=== PATIENT | male | born 1940 | race Caucasian/White ===

== ENCOUNTER 2016-11-22 11:44 | Outpatient (CLI) | payer MEDICARE, OTHER ==
[2016-11-22 13:58] LABS: #Lymphocytes 1.7 thou/uL (1.20-3.40); #Monocytes 0.5 thou/uL (0.11-0.59); #Neutrophils 3.2 thou/uL (1.40-6.50); %Basophils 0.7 % (0.0-1.0); %Eosinophils 0.8 % (0.0-10.0); %Lymphocytes 31.4 % (21.0-51.0); %Monocytes 8.9 % (0.0-10.0); %Neutrophils 58.1 % (42.0-75.0); Hemoglobin 14.1 g/dL (14.0-18.0); Mean Corpuscular HGB CONC 31.7 g/dL (32.0-36.0); Mean Corpuscular Hemoglobin 30.1 pg (27.0-31.0); Mean Corpuscular Volume 94.8 fl (80.0-94.0); Mean Platelet Volume 9.8 fL (7.4-10.4); Platelet Count 221 thou/uL (130-400); RBC Distribution Width 12.7 % (11.5-14.5); White Blood Cell (WBC) Count 5.4 thou/uL (4.8-10.8)
[2016-11-22 14:09] LABS: ALT (SGPT) 10 U/L (0-55); AST (SGOT) 15 U/L (5-34); Alkaline Phosphatase 88 U/L (40-150); Anion Gap 14 mmol/L (10-20); BUN (Urea Nitrogen) 20 mg/dL (8.4-25.7); Bilirubin, Direct 0.2 mg/dL (0.1-0.3); Bilirubin, Total 0.3 mg/dL (0.2-1.2); Calc. Creatinine Clearance 0 mL/min (70-130); Carbon Dioxide 27 mmol/L (23-31); Chloride 102 mmol/L (98-107); Cholesterol 151 mg/dL (< 200 Desired); Estimated GFR-MDRD 65; Glucose 110 mg/dL (83-110); HDL Cholesterol 51 mg/dL (>60 Neg Risk); LDL Cholesterol, Calculated 78 mg/dL; Potassium 4.3 mmol/L (3.5-5.1); Protein, Total 6.8 g/dL (5.8-8.1); Sodium 139 mmol/L (136-145); Triglycerides 109 mg/dL (Less than 150)
== END 2016-11-22 11:45 | disposition home or self-care (01) ==
LOC: NAVSJIPCSP 11:44
PROVIDERS: ATTEND Family Medicine
DX: D64.9 Anemia, unspecified (principal); E11.9 Type 2 diabetes mellitus without complications; I10 Essential (primary) hypertension; Z79.899 Other long term (current) drug therapy
CPT/HCPCS: 36415; 80048; 80061; 80076; 83036; 84443; 85025

== ENCOUNTER 2017-09-27 17:44 | Emergency (ER) | payer MEDICARE, BC ==
[2017-09-27 18:27] LABS: Bilirubin Negative (Negative); Blood, Urine Negative (Negative); Clarity Clear (Clear); Glucose, Urine (Dipstick) Negative (Negative); Leukocyte Negative (Negative); Nitrite Negative (Negative); Protein, Urine (Dipstick) 30 mg/dL (Neg-Trace); Urobilinogen 0.2 mg/dL (0.2-1.0); pH, Urine 6.5 (5.0-9.0)
[2017-09-27 18:38] LABS: Bacteria/HPF None Seen HPF (None Seen); RBC/HPF 0-3 HPF (0-3); Squamous Epithelial 0-3 HPF (0-3); WBC/HPF 0-3 HPF (0-3)
[2017-09-27] MEDS ORDERED: Oseltamivir 75 MG CAP ONE (18:48)
[2017-09-27] MEDS ORDERED: predniSONE 20 MG TAB ONE (18:51)
--- NOTE | 2017-09-27 19:11 | RAD ---
CHEST ONE VIEW 09/27/17 HISTORY: Cough. COMPARISON: 02/09/16, 01/27/17. FINDINGS: Portable semiupright chest demonstrates normal cardiac silhouette. There is atherosclerosis of the ao rta. Pulmonary vessels are normal. Right lung and costophrenic angle are clear. There are pleural and parenchymal changes in the left lung base. No pneumothorax. Cervical fusion hardware is noted. IMPRESSION: Pleural and parenchymal change in the left lung base. Possibility of pneumonia is raised. Continued s urveillance to ensure resolution is recommended. POS: JANNA
== END 2017-09-27 18:53 | disposition home or self-care (01) ==
LOC: NAV ERS 17:44
DX: J44.1 Chronic obstructive pulmonary disease with (acute) exacerbation (principal); J10.1 Influenza due to other identified influenza virus with other respiratory manifestations; E11.9 Type 2 diabetes mellitus without complications; Z87.891 Personal history of nicotine dependence; Z79.899 Other long term (current) drug therapy
CPT/HCPCS: 71045; 81003; 81015; 87804; 94640; J7506; J7620

== ENCOUNTER 2018-06-27 17:27 | Emergency (ER) | payer MEDICARE, BC ==
[2018-06-27] MEDS ORDERED: predniSONE 20 MG TAB ONE (18:07)
--- NOTE | 2018-06-27 19:21 | RAD ---
CHEST 1 VIEW: Date: 06/27/18 HISTORY: Cough. Sputum production. COMPARISON: Radiograph dated 09/27/17. FINDINGS: Lungs are clear. No pneumothorax or effusion. Remote right-sided rib fractures. No confluent air space consolidation, pneumothorax, or effusion. IMPRESSION: No acute intrathoracic abnormality. POS: [facility]
== END 2018-06-27 18:55 | disposition home or self-care (01) ==
LOC: NAV ERS 17:27
DX: J20.9 Acute bronchitis, unspecified (principal); I10 Essential (primary) hypertension; J44.9 Chronic obstructive pulmonary disease, unspecified; E11.40 Type 2 diabetes mellitus with diabetic neuropathy, unspecified; F32.9 Major depressive disorder, single episode, unspecified; E78.5 Hyperlipidemia, unspecified; Z79.84 Long term (current) use of oral hypoglycemic drugs; Z87.01 Personal history of pneumonia (recurrent); Z87.891 Personal history of nicotine dependence; Z79.899 Other long term (current) drug therapy
CPT/HCPCS: 71045; 87804; 93005; 94640; J7506; J7620

== ENCOUNTER 2019-07-15 16:59 | Emergency (ER) | payer MEDICARE, BC ==
[2019-07-15 17:44] LABS: #Basophils 0.1 thou/uL (0.0-0.2); #Lymphocytes 1.6 thou/uL (1.20-3.40); #Monocytes 0.7 thou/uL (0.11-0.59); #Neutrophils 4.4 thou/uL (1.40-6.50); %Eosinophils 0.4 % (0.0-10.0); %Lymphocytes 23.7 % (21.0-51.0); %Monocytes 9.9 % (0.0-10.0); Mean Corpuscular HGB CONC 31.4 g/dL (32.0-36.0); Mean Corpuscular Hemoglobin 28.4 pg (27.0-31.0); Mean Corpuscular Volume 90.2 fL (78.0-98.0); Mean Platelet Volume 10.9 fL (7.4-10.4); Platelet Count 197 thou/uL (130-400); RBC Distribution Width 12.8 % (11.5-14.5); Red Blood Cell (RBC) Count 4.92 mill/uL (4.70-6.10); White Blood Cell (WBC) Count 6.8 thou/uL (4.8-10.8)
[2019-07-15] MEDS ORDERED: Albuterol Sulfate 2.5 mg/0.5 ml Neb ONE ×2 (17:45)
[2019-07-15] MEDS ORDERED: Sodium Chloride For Inhalation 0.9% 3 ML NEB ONE (17:46)
--- NOTE | 2019-07-15 17:47 | RAD ---
TWO VIEWS OF THE CHEST: 07/15/19 COMPARISON: 06/27/18. HISTORY: Congestion, productive cough. FINDINGS: Incompletely imaged cervical spine hardware is present. There is increased linear interstitial densit y and pulmonary hyperinflation suggesting COPD in the proper clinical setting, stable. Multiple old l ateral right sided rib fractures are noted. There is atherosclerotic calcifications of the aortic arc h. No focal consolidation or alveolar edema. IMPRESSION: Chronic findings as detailed above. No focal consolidation or alveolar edema. POS: [facility]ERT[facility]
[2019-07-15 18:06] LABS: ALT (SGPT) 12 U/L (8-55); AST (SGOT) 12 U/L (5-34); Albumin 4.1 g/dL (3.4-4.8); Alkaline Phosphatase 124 U/L (40-110); Anion Gap 15 mmol/L (10-20); BUN (Urea Nitrogen) 18 mg/dL (8.4-25.7); Bilirubin, Total 0.4 mg/dL (0.2-1.2); Calc. Creatinine Clearance 0 mL/min (70-130); Calcium 9.5 mg/dL (7.8-10.44); Carbon Dioxide 27 mmol/L (23-31); Chloride 100 mmol/L (98-107); Estimated GFR-MDRD 61; Globulin 2.8 g/dL (2.4-3.5); Glucose 191 mg/dL (83-110); Potassium 4.2 mmol/L (3.5-5.1); Protein, Total 6.9 g/dL (5.8-8.1); Sodium 138 mmol/L (136-145)
[2019-07-15] MEDS ORDERED: Sodium Chloride 0.9% 0 ML ONE (18:36)
[2019-07-15] MEDS ORDERED: Sodium Chloride 0.9% 1,000 ML ONE (18:37)
[2019-07-15] MEDS ORDERED: Sodium Chloride 0.9% 100 ML ONE (18:38)
[2019-07-15] MEDS ORDERED: Azithromycin 250 MG TAB ONE (18:38)
[2019-07-15] MEDS ORDERED: cefTRIAXone\\ROCEPHIN 1 GM VIAL ONE (18:38)
== END 2019-07-15 19:37 | disposition home or self-care (01) ==
LOC: NAV ERS 16:59
DX: J44.0 Chronic obstructive pulmonary disease with (acute) lower respiratory infection (principal); J18.9 Pneumonia, unspecified organism; E11.65 Type 2 diabetes mellitus with hyperglycemia; E11.40 Type 2 diabetes mellitus with diabetic neuropathy, unspecified; I10 Essential (primary) hypertension; J44.9 Chronic obstructive pulmonary disease, unspecified; F32.9 Major depressive disorder, single episode, unspecified; Z87.891 Personal history of nicotine dependence; Z86.73 Personal history of transient ischemic attack (TIA), and cerebral infarction without residual deficits; Z79.899 Other long term (current) drug therapy
CPT/HCPCS: 71046; 80053; 83880; 84484; 85025; 87804; 93005; 94640; 94760; J0696; J3490; J7050; J7611; J7620

== ENCOUNTER 2020-04-12 23:59 | Emergency (ER) | payer MEDICARE, BC | END 2020-04-13 00:15 | disposition left against medical advice (07) | LOC: NAV ERS 23:59 | DX: Z53.21 Procedure and treatment not carried out due to patient leaving prior to being seen by health care provider (principal) | CPT/HCPCS: 36416 ==

== ENCOUNTER 2020-07-21 15:38 | Outpatient (CLI) | payer MEDICARE, BC ==
--- NOTE | 2020-07-22 07:28 | RAD ---
Chest 2 views HISTORY: Cough. COVID positive. COMPARISON: 07/15/2020. FINDINGS: Cardiac silhouette and pulmonary vasculature are unremarkable. Mediastinum is midline with aortic calcification and postoperative changes of the cervical spine. Lungs remain hyperinflated with flattening of each hemidiaphragm. Right middle lobe infiltrate demons trated on recent CT is not well visualized on the current study. No lobar consolidation, pneumothorax, or pleural fluid. Old healed right lateral upper rib fractures. IMPRESSION : Right middle lobe infiltrate not visible, possible partial resolution. No new abnormalities are demonstrated. Atherosclerosis.
== END 2020-07-21 15:39 | disposition home or self-care (01) ==
LOC: NAV RAD 15:38
PROVIDERS: ATTEND Family Medicine
DX: R05 Cough (principal); I70.90 Unspecified atherosclerosis; R91.8 Other nonspecific abnormal finding of lung field; Z86.19 Personal history of other infectious and parasitic diseases
CPT/HCPCS: 71046

== ENCOUNTER 2020-07-28 15:29 | Inpatient (IN) | payer MEDICARE, BC ==
[2020-07-28] MEDS ORDERED: Dextrose 50% Abboject 50 ML SYRINGE SLOW IVP PRN (16:28)
--- NOTE | 2020-07-28 17:53 | HP ---
PRINCIPAL DIAGNOSIS: Pneumonia and deconditioning, for therapy. BRIEF HISTORY: This is a pleasant 80-year-old male, who was recently in the hospital for COVID-19 infection and recovered after getting dexamethasone and remdesivir and discharged home. He apparently was feeling weak and developed fevers and cough and so presented back to the emergency room. He did have an elevated troponin consistent with non-STEMI. CT angio was negative for pulmonary embolus. It also showed ground-glass opacities consistent with pneumonia. His repeat COVID-19 test on the was negative. He was started on IV Levaquin. He was also on breathing treatments as well as medications for acute coronary syndrome. He has slowly improved and he has been weaned off his high-flow oxygen and is currently on oral Levaquin. Cardiology feels that non-STEMI was likely related to demand issue. Echocardiogram showed ejection fraction of 65% and recommendation is beta blockers with ARBs and statin as well as anti-platelet therapy. He was felt to be a candidate for rehabilitation and transferred here. The patient is doing well and denies any concerns. Denies any chest pain or shortness of breath. Denies any fever or chills. No family at bedside. PAST MEDICAL HISTORY: 1. Recent COVID-19 infection. 2. Coronary artery disease with possible recent non-STEMI. 3. Diabetes mellitus type 2. 4. Dyslipidemia. 5. Hypertension. 6. Peripheral neuropathy, likely due to diabetes. 7. Gastroesophageal reflux disease. 8. Possible history of COPD. 9. Peripheral vascular disease. 10. Multiple TIAs. 11. Iron deficiency anemia. PAST SURGICAL HISTORY: 1. Peripheral vascular stent placement. 2. L5-S1 laminectomy. 3. Cervical spine surgery. FAMILY HISTORY: Positive for congestive heart failure in his mother, father at age 56 of colon cancer, and a sister had coronary artery disease. ALLERGIES: TO AMOXICILLIN AND DIAZEPAM. MEDICATIONS: He has been transferred here on the following medications. 1. Aspirin 81 mg daily. 2. Calcium carbonate 500 mg daily. 3. Vitamin D3, 2000 international units daily. 4. Dexamethasone 6 mg daily, I am not sure why he is still on it. I will review the discharge summary and adjust it. 5. Nexium 20 mg b.i.d. 6. Lasix 40 mg daily. 7. Gabapentin 800 mg b.i.d. 8. . 9. Isosorbide 60 mg daily. 10. Levaquin 750 mg daily. 11. Lisinopril 2.5 daily. 12. Metformin 500 mg in the morning and 1000 at bedtime. 13. Toprol-XL 50 mg daily. 14. Pioglitazone 45 mg daily. 15. Lyrica 150 mg b.i.d. 16. Simvastatin 40 mg daily. 17. Januvia 100 mg daily. 18. Brilinta 90 mg b.i.d. 19. Zinc 220 mg daily. REVIEW OF SYSTEMS: GENERAL: The patient denies any fever, fatigue, or weight change. CARDIOVASCULAR SYSTEM: Denies any chest pain, shortness of breath, palpitations, PND, orthopnea, or pedal edema. RESPIRATORY SYSTEM: Denies any chronic cough, expectoration, or pleuritic-type chest pain. Much improved shortness of breath. GASTROINTESTINAL SYSTEM: Denies any nausea, vomiting, diarrhea, constipation, hematemesis, melena, or hematochezia. GENITOURINARY SYSTEM: Denies any frequency, urgency, dysuria, or hematuria. CENTRAL NERVOUS SYSTEM: Denies any focal numbness, weakness, or fainting spells. EXTREMITIES: Denies any joint pains. SKIN: Denies any rash. ENT: Denies any changes with speech, vision, hearing, or swallowing. PHYSICAL EXAMINATION: GENERAL: A pleasant 80-year-old male, who is up in his chair and denies any complaints. He responds appropriately to questions. He is alert, awake, and oriented x3. VITAL SIGNS: He is afebrile. Heart rate 69, respirations 18, oxygen saturation 95% on room air, blood pressure 121/61. HEENT: Normocephalic and atraumatic. Pupils are equally reactive to light and accommodation. NECK: No JVD, thyromegaly, cervical adenopathy, or throat exudates. No carotid bruits. CARDIOVASCULAR SYSTEM: S1 and S2 plus. RESPIRATORY SYSTEM: Normal vesicular breath sounds. ABDOMEN: Soft, nontender, bowel sounds heard in all quadrants. EXTREMITIES: Without cyanosis or clubbing. CENTRAL NERVOUS SYSTEM: Awake and responsive. Generalized weakness. Otherwise, nonfocal. Cranial nerves 2 through 12 are intact. IMPRESSION: 1. Pneumonia, likely community-acquired. 2. Coronary artery disease with possible recent jhs-[id number] myocardial infarction. 3. Hypertension. 4. Dyslipidemia. 5. Anemia, likely due to iron deficiency. 6. Gastroesophageal reflux disease. 7. Possible peripheral neuropathy due to diabetes. 8. Diabetes mellitus type 2 with circulatory complications. 9. Peripheral vascular disease. PLAN: 1. Continue discharge medications from previous hospitalization. 2. 1800-calorie heart healthy ADA diet. 3. Accu-Cheks with sliding scale coverage. 4. DVT prophylaxis with PlexiPulses. 5. Decubitus precautions. 6. Stress ulcer prophylaxis. 7. Monitor respiratory status. 8. Recheck CBC and CMP in the morning. 9. PT and OT eval and treat. 10. Mild sliding scale with Accu-Cheks before meals and at bedtime. 11. Discussed with the patient and staff in detail. All questions answered. Job ID: [id number]
[2020-07-28] MEDS: metFORMIN 500 MG TAB PO SCH (18:10)
[2020-07-28] MEDS: HumaLOG 300 UNITS/3 ML VIAL SC PRN (20:31)
[2020-07-28] MEDS: Gabapentin 400 MG CAP PO SCH (20:34)
[2020-07-28] MEDS: Simvastatin 40 MG TAB PO SCH (20:34)
[2020-07-28] MEDS: TICAGRELOR 90 MG TABLET PO SCH (20:34)
[2020-07-28] MEDS: Pregabalin 75 MG CAP PO SCH (20:35)
[2020-07-29] MEDS: HumaLOG 300 UNITS/3 ML VIAL SC PRN ×3 (05:38→16:58)
[2020-07-29 05:54] LABS: Band 17 % (5-11); Hemoglobin 8.1 g/dL (14.0-18.0); Hypochromia SLIGHT = 6-15 cells (100X) (0-5/hpf); Lymphocytes 13 % (21-51); MDiff Complete? YES; Mean Corpuscular HGB CONC 30.2 g/dL (32.0-36.0); Mean Corpuscular Hemoglobin 21.5 pg (27.0-31.0); Mean Corpuscular Volume 71.3 fL (78.0-98.0); Mean Platelet Volume 8.6 fL (7.4-10.4); Metamyelocyte 2 % (0-0); Microcytosis SLIGHT = 6-15 cells (100X) (0-5/hpf); Monocytes 7 % (0-10); Neutrophil 61 % (42-75); Ovalocytes SLIGHT = 2-5 cells (100X) (0-1/hpf); Platelet Count 384 thou/uL (130-400); Platelet Morphology Comment Appears Adequate; RBC Distribution Width 15.6 % (11.5-14.5); Red Blood Cell (RBC) Count 3.77 mill/uL (4.70-6.10)
[2020-07-29 05:58] LABS: Anion Gap 15 mmol/L (10-20); BUN (Urea Nitrogen) 21 mg/dL (8.4-25.7); Calc. Creatinine Clearance 81 mL/min (70-130); Calcium 8.5 mg/dL (7.8-10.44); Carbon Dioxide 29 mmol/L (23-31); Chloride 97 mmol/L (98-107); Glucose 199 mg/dL (83-110); Potassium 3.1 mmol/L (3.5-5.1); Sodium 138 mmol/L (136-145)
[2020-07-29] MEDS: Multivitamin W/ Minerals 1 TAB PO SCH (07:59)
[2020-07-29] MEDS: Cholecalciferol 1,000 UNITS (25 MCG) TAB PO SCH (08:00)
[2020-07-29] MEDS: Aspirin 81 mg Enteric Coated Tablet PO SCH (08:00)
[2020-07-29] MEDS: TICAGRELOR 90 MG TABLET PO SCH ×2 (08:00→21:49)
[2020-07-29] MEDS: Alogliptin 25 MG TAB PO SCH (08:00)
[2020-07-29] MEDS: metFORMIN 500 MG TAB PO SCH ×2 (08:00→16:32)
[2020-07-29] MEDS: Ferrous Sulfate 325 MG TAB PO SCH (08:00)
[2020-07-29] MEDS: Pregabalin 75 MG CAP PO SCH ×2 (08:01→21:46)
[2020-07-29] MEDS: Pioglitazone HCl 15 MG TAB PO SCH (08:02)
[2020-07-29] MEDS: Gabapentin 400 MG CAP PO SCH ×2 (08:02→21:47)
[2020-07-29] MEDS: Zinc Sulfate 220 MG CAP PO SCH (08:03)
[2020-07-29] MEDS: Furosemide 40 MG TAB PO SCH (08:03)
[2020-07-29] MEDS: Calcium Carbonate 500 MG TAB PO SCH (08:03)
[2020-07-29] MEDS ORDERED: Dexamethasone 4 MG TAB PO SCH (09:00)
[2020-07-29] MEDS ORDERED: Lisinopril 5 MG TAB PO SCH ×2 (09:00→15:00)
[2020-07-29] MEDS ORDERED: Potassium Chloride 20 MEQ TAB PO SCH (15:00)
--- NOTE | 2020-07-29 15:30 | PRG ---
DATE OF SERVICE: 07/29/2020 SUBJECTIVE: Mr. Morse has been moved to room 151. He apparently was feeling great this morning, but then has been feeling puny. He is also complaining of jitteriness and nausea as well as abdominal irritation. His is in the room and states that he normally responds well to Nexium, she is going to bring it from home. Plan is to stop his Decadron as I do not see any reason for him to be on oral steroids. We will also change the timing on his medications, especially the lisinopril, the metoprolol, and isosorbide. He apparently was not on any of these medicines until this recent admission to the hospital and most probably started for his atrial fibrillation and non-STEMI. I will also add Florastor and give parameters for these medications. I did confirm with the that he is apparently on both gabapentin and Lyrica for his peripheral neuropathy. OBJECTIVE: VITAL SIGNS: He is afebrile, heart rate 68, respirations 22, oxygen saturation 99% on 1 L nasal cannula, blood pressure 113/58. CARDIOVASCULAR SYSTEM: S1 and S2 plus. RESPIRATORY SYSTEM: Normal vesicular breath sounds. ABDOMEN: Soft, obese, nontender. Bowel sounds heard in all quadrants. EXTREMITIES: Without cyanosis or clubbing. Trace edema. CENTRAL NERVOUS SYSTEM: Generalized weakness. Peripheral neuropathy. Otherwise, nonfocal. LABORATORY VALUES: Show a white count of 10, hemoglobin and hematocrit are 8.1 and 26.9. Sodium 138, potassium 3.1, BUN and creatinine are 21 and 0.95. Blood sugars are 376, 164, 199, and 240. IMPRESSION: 1. Pneumoniae, likely community-acquired. 2. Diabetes mellitus, type 2. 3. Atrial fibrillation. 4. Coronary artery disease with possible recent ebt-PK-jxeovmozk myocardial infarction. 5. Diabetic peripheral neuropathy. 6. Hypertension. 7. Gastroesophageal reflux disease. 8. Peripheral vascular disease. 9. Multiple transient ischemic attacks. 10. Iron deficiency anemia. 11. Hypokalemia. PLAN: 1. Continue current medications, but add potassium 40 mEq p.o. x1. 2. Reduce metoprolol to 25 mg and change to nighttime. 3. Reduce isosorbide to 30 mg daily and give it in the morning. 4. Lisinopril 2.5, but add parameters to all three medicines to hold if systolic blood pressure is less than 120. 5. Discontinue Decadron. 6. Add Florastor. 7. Recheck laboratory values in the morning. 8. Titrate oxygen as tolerated. 9. DVT prophylaxis with PlexiPulses. 10. Decubitus precautions. 11. Stress ulcer prophylaxis. is going to bring Nexium from home, until then he will be on pantoprazole. 12. Advised her that he is on Brilinta instead of Plavix. 13. Continue therapy. 14. Discussed with the patient, spouse, and nursing in detail. All questions answered. Job ID: [id number]
[2020-07-29] MEDS: ESOMEPRAZOLE 20 MG PO SCH (21:45)
[2020-07-29] MEDS: Simvastatin 40 MG TAB PO SCH (21:49)
[2020-07-30 06:14] LABS: Anion Gap 14 mmol/L (10-20); BUN (Urea Nitrogen) 35 mg/dL (8.4-25.7); Calc. Creatinine Clearance 64 mL/min (70-130); Calcium 8.7 mg/dL (7.8-10.44); Carbon Dioxide 27 mmol/L (23-31); Chloride 98 mmol/L (98-107); Glucose 140 mg/dL (83-110); Potassium 3.2 mmol/L (3.5-5.1); Sodium 136 mmol/L (136-145)
[2020-07-30] MEDS: Gabapentin 400 MG CAP PO SCH ×2 (08:45→21:15)
[2020-07-30] MEDS: Zinc Sulfate 220 MG CAP PO SCH (08:46)
[2020-07-30] MEDS: Calcium Carbonate 500 MG TAB PO SCH (08:46)
[2020-07-30] MEDS: Multivitamin W/ Minerals 1 TAB PO SCH (08:46)
[2020-07-30] MEDS: Saccharomyces boulardii 250 MG CAP PO SCH (08:46)
[2020-07-30] MEDS: Pregabalin 75 MG CAP PO SCH ×2 (08:47→21:16)
[2020-07-30] MEDS: Furosemide 40 MG TAB PO SCH (08:47)
[2020-07-30] MEDS: TICAGRELOR 90 MG TABLET PO SCH ×2 (08:47→21:18)
[2020-07-30] MEDS: Aspirin 81 mg Enteric Coated Tablet PO SCH (08:47)
[2020-07-30] MEDS: Pioglitazone HCl 15 MG TAB PO SCH (08:47)
[2020-07-30] MEDS: Cholecalciferol 1,000 UNITS (25 MCG) TAB PO SCH (08:47)
[2020-07-30] MEDS: ESOMEPRAZOLE 20 MG PO SCH ×2 (08:48→21:15)
[2020-07-30] MEDS: Alogliptin 25 MG TAB PO SCH (08:48)
[2020-07-30] MEDS: metFORMIN 500 MG TAB PO SCH ×2 (08:48→16:56)
[2020-07-30] MEDS: Ferrous Sulfate 325 MG TAB PO SCH (08:48)
[2020-07-30] MEDS: Lisinopril 5 MG TAB PO SCH (08:49)
[2020-07-30] MEDS ORDERED: Potassium Chloride 20 MEQ TAB PO SCH (15:15)
--- NOTE | 2020-07-30 16:33 | PRG ---
DATE OF SERVICE: 07/30/2020 SUBJECTIVE: Mr. Morse is feeling much better. He denies any complaints. He apparently walked all the way to the nurse's station from his room with his walker. OBJECTIVE: VITAL SIGNS: He is afebrile. Heart rate is 70, respirations 18, oxygen saturation 97% on 1 L, and blood pressure was 106/57. CARDIOVASCULAR: S1 and S2 plus. RESPIRATORY: Normal vesicular breath sounds. ABDOMEN: Soft and nontender. Bowel sounds heard in all quadrants. EXTREMITIES: Without cyanosis or clubbing. CENTRAL NERVOUS SYSTEM: Improving deconditioning. LABORATORY VALUES: His sodium is 136, potassium is still low at 3.2, BUN and creatinine are 35 and 1.2. Blood sugars are much improved at 189, 140, 138, and 139. IMPRESSION: 1. Resolving pneumonitis. 2. Recent COVID-19 infection. 3. Possible recent tbh-EC-acmgiqsje myocardial infarction. 4. Coronary artery disease. 5. Diabetes mellitus type 2. 6. Atrial fibrillation. 7. Peripheral neuropathy. 8. Hypertension. 9. Gastroesophageal reflux disease. 10. History of multiple transient ischemic attack. 11. Persistent hypokalemia. PLAN: 1. Continue current medication, but reduce Lasix to 20 mg once daily. 2. Replace potassium again. 3. Continue therapy. 4. Titrate oxygen. 5. DVT prophylaxis with PlexiPulses. 6. Decubitus precaution. 7. Routine laboratory values. Job ID: [id number]
[2020-07-30] MEDS: Simvastatin 40 MG TAB PO SCH (21:17)
[2020-07-31 04:46] VITALS: BMI 27.3
[2020-07-31] MEDS: HumaLOG 300 UNITS/3 ML VIAL SC PRN ×2 (05:27→12:21)
[2020-07-31] MEDS: Gabapentin 400 MG CAP PO SCH ×2 (09:18→21:16)
[2020-07-31] MEDS: Multivitamin W/ Minerals 1 TAB PO SCH (09:18)
[2020-07-31] MEDS: Alogliptin 25 MG TAB PO SCH (09:18)
[2020-07-31] MEDS: Pioglitazone HCl 15 MG TAB PO SCH (09:18)
[2020-07-31] MEDS: Potassium Chloride 20 MEQ TAB PO SCH (09:19)
[2020-07-31] MEDS: Calcium Carbonate 500 MG TAB PO SCH (09:19)
[2020-07-31] MEDS: Pregabalin 75 MG CAP PO SCH ×2 (09:19→21:17)
[2020-07-31] MEDS: Cholecalciferol 1,000 UNITS (25 MCG) TAB PO SCH (09:19)
[2020-07-31] MEDS: Ferrous Sulfate 325 MG TAB PO SCH (09:19)
[2020-07-31] MEDS: Zinc Sulfate 220 MG CAP PO SCH (09:19)
[2020-07-31] MEDS: TICAGRELOR 90 MG TABLET PO SCH ×2 (09:20→21:19)
[2020-07-31] MEDS: Aspirin 81 mg Enteric Coated Tablet PO SCH (09:20)
[2020-07-31] MEDS: Saccharomyces boulardii 250 MG CAP PO SCH (09:20)
[2020-07-31] MEDS: Furosemide 20 MG TAB PO SCH (09:20)
[2020-07-31] MEDS: Lisinopril 5 MG TAB PO SCH (09:20)
[2020-07-31] MEDS: metFORMIN 500 MG TAB PO SCH ×2 (09:20→17:35)
[2020-07-31] MEDS: ESOMEPRAZOLE 20 MG PO SCH ×2 (09:24→21:13)
[2020-07-31] MEDS ORDERED: Loperamide HCl 2 MG CAP PO PRN ×4 (11:43→12:00)
--- NOTE | 2020-07-31 14:51 | PRG ---
DATE OF SERVICE: 07/31/2020 SUBJECTIVE: Mr. Morse apparently had a couple of episodes of loose stools last night and then a couple this morning. It is not smelly per Nursing, probably related to the Levaquin, but he apparently also got a milkshake last night, which usually causes some issues per . Plan is to start him on Imodium and if there are any changes, we will also get a stool for C diff. OBJECTIVE: VITAL SIGNS: He is afebrile, heart rate 98, respirations 18, oxygen saturation 97% on room air, blood pressure 97/49. CARDIOVASCULAR: S1-S2 plus. RESPIRATORY: Normal vesicular breath sounds. ABDOMEN: Soft, obese, nontender. Bowel sounds heard in all quadrants. EXTREMITIES: Without cyanosis or clubbing. CENTRAL NERVOUS SYSTEM: Generalized weakness, otherwise nonfocal. IMPRESSION: 1. Possible pneumonitis. 2. Recent COVID-19 infection. 3. Coronary artery disease. 4. Diabetes mellitus type 2. 5. Atrial fibrillation. 6. Hypertension. 7. Gastroesophageal reflux disease. 8. Hypokalemia. 9. Deconditioning. 10. Resolving acute hypoxemic respiratory failure. PLAN: 1. Continue current medications. 2. 1800 calorie heart healthy ADA diet. 3. Accu-Cheks with sliding scale coverage. 4. Monitor respiratory status and breathing treatments as needed. 5. DVT prophylaxis with PlexiPulses. 6. Decubitus precautions. 7. Stress ulcer prophylaxis. 8. Routine laboratory values. 9. Therapy tomorrow. 10. Recheck CBC and BMP tomorrow. Job ID: [id number]
[2020-07-31] MEDS: Simvastatin 40 MG TAB PO SCH (21:15)
[2020-08-01 05:35] LABS: #Basophils 0.1 thou/uL (0.0-0.2); #Monocytes 0.7 thou/uL (0.11-0.59); #Neutrophils 6.6 thou/uL (1.40-6.50); %Basophils 0.9 % (0.0-1.0); %Eosinophils 0.2 % (0.0-10.0); %Lymphocytes 12.2 % (21.0-51.0); %Neutrophils 78.7 % (42.0-75.0); Hemoglobin 8.2 g/dL (14.0-18.0); Mean Corpuscular HGB CONC 30.1 g/dL (32.0-36.0); Mean Corpuscular Hemoglobin 21.3 pg (27.0-31.0); Mean Corpuscular Volume 70.6 fL (78.0-98.0); Mean Platelet Volume 7.8 fL (7.4-10.4); Platelet Count 353 thou/uL (130-400); RBC Distribution Width 15.6 % (11.5-14.5); Red Blood Cell (RBC) Count 3.85 mill/uL (4.70-6.10); White Blood Cell (WBC) Count 8.4 thou/uL (4.8-10.8)
[2020-08-01 05:36] LABS: Anisocytosis SLIGHT = 6-15 cells (100X) (0-5/hpf); Hypochromia SLIGHT = 6-15 cells (100X) (0-5/hpf); MDiff Complete? YES; Microcytosis MODERATE=15-30 cells (100X) (0-5/hpf); Ovalocytes SLIGHT = 2-5 cells (100X) (0-1/hpf); Platelet Morphology Comment Appears Adequate
[2020-08-01 05:39] LABS: Anion Gap 16 mmol/L (10-20); BUN (Urea Nitrogen) 25 mg/dL (8.4-25.7); Calc. Creatinine Clearance 66 mL/min (70-130); Calcium 8.6 mg/dL (7.8-10.44); Carbon Dioxide 28 mmol/L (23-31); Chloride 95 mmol/L (98-107); Glucose 161 mg/dL (83-110); Potassium 3.6 mmol/L (3.5-5.1); Sodium 135 mmol/L (136-145)
[2020-08-01] MEDS: HumaLOG 300 UNITS/3 ML VIAL SC PRN ×2 (06:02→11:55)
[2020-08-01] MEDS: Potassium Chloride 20 MEQ TAB PO SCH (08:33)
[2020-08-01] MEDS: Pioglitazone HCl 15 MG TAB PO SCH (08:33)
[2020-08-01] MEDS: Pregabalin 75 MG CAP PO SCH ×2 (08:34→20:11)
[2020-08-01] MEDS: TICAGRELOR 90 MG TABLET PO SCH ×2 (08:34→20:12)
[2020-08-01] MEDS: Saccharomyces boulardii 250 MG CAP PO SCH (08:34)
[2020-08-01] MEDS: Zinc Sulfate 220 MG CAP PO SCH (08:35)
[2020-08-01] MEDS: Cholecalciferol 1,000 UNITS (25 MCG) TAB PO SCH (08:35)
[2020-08-01] MEDS: Calcium Carbonate 500 MG TAB PO SCH (08:35)
[2020-08-01] MEDS: Aspirin 81 mg Enteric Coated Tablet PO SCH (08:35)
[2020-08-01] MEDS: Alogliptin 25 MG TAB PO SCH (08:35)
[2020-08-01] MEDS: Gabapentin 400 MG CAP PO SCH ×2 (08:36→20:11)
[2020-08-01] MEDS: Furosemide 20 MG TAB PO SCH (08:36)
[2020-08-01] MEDS: Ferrous Sulfate 325 MG TAB PO SCH (08:36)
[2020-08-01] MEDS: metFORMIN 500 MG TAB PO SCH ×2 (08:38→17:28)
[2020-08-01] MEDS: Multivitamin W/ Minerals 1 TAB PO SCH (08:38)
[2020-08-01] MEDS: Lisinopril 5 MG TAB PO SCH (08:38)
[2020-08-01] MEDS: ESOMEPRAZOLE 20 MG PO SCH ×2 (08:44→20:12)
--- NOTE | 2020-08-01 13:09 | PRG ---
DATE OF SERVICE: 08/01/2020 SUBJECTIVE: Mr. Morse is doing well. His diarrhea has pretty much resolved. He is off his oxygen. He apparently did pretty well with therapy. Denies any questions or concerns. His spouse is not in the room. OBJECTIVE: VITAL SIGNS: He is afebrile, heart rate 82, respirations 18, oxygen saturation 93% on room air, blood pressure is 96/55. CARDIOVASCULAR: S1-S2 plus. RESPIRATORY: Normal vesicular breath sounds. ABDOMEN: Soft and nontender. Bowel sounds heard in all quadrants. EXTREMITIES: Without cyanosis or clubbing. Trace edema. CENTRAL NERVOUS SYSTEM: Improving deconditioning. LABORATORY VALUES: White count is 8.4, H and H are 8.2 and 27.2. Sodium 135, potassium 3.6, BUN and creatinine are 25 and 1.08. Blood sugar is much improved at 145, 150, and 157. IMPRESSION: 1. Possible community-acquired pneumonia. 2. Recent COVID-19 infection. 3. Resolved acute hypoxemic respiratory failure. 4. Coronary artery disease. 5. Diabetes mellitus type 2. 6. Atrial fibrillation. 7. Hypertension. 8. Resolved hypokalemia. 9. Improving deconditioning. PLAN: 1. Continue current medications. 2. 1800 calorie heart healthy ADA diet. 3. Accu-Cheks with sliding scale coverage. 4. Continue to monitor respiratory status. 5. Physical therapy. 6. DVT prophylaxis with PlexiPulses. 7. Decubitus precautions. Job ID: [id number]
[2020-08-01] MEDS: Simvastatin 40 MG TAB PO SCH (20:11)
[2020-08-02] MEDS: HumaLOG 300 UNITS/3 ML VIAL SC PRN ×3 (05:37→20:52)
[2020-08-02] MEDS: Potassium Chloride 20 MEQ TAB PO SCH (08:24)
[2020-08-02] MEDS: Cholecalciferol 1,000 UNITS (25 MCG) TAB PO SCH (08:25)
[2020-08-02] MEDS: Calcium Carbonate 500 MG TAB PO SCH (08:25)
[2020-08-02] MEDS: Alogliptin 25 MG TAB PO SCH (08:25)
[2020-08-02] MEDS: Aspirin 81 mg Enteric Coated Tablet PO SCH (08:25)
[2020-08-02] MEDS: Ferrous Sulfate 325 MG TAB PO SCH (08:25)
[2020-08-02] MEDS: Gabapentin 400 MG CAP PO SCH ×2 (08:26→20:49)
[2020-08-02] MEDS: Furosemide 20 MG TAB PO SCH (08:26)
[2020-08-02] MEDS: metFORMIN 500 MG TAB PO SCH ×2 (08:27→17:40)
[2020-08-02] MEDS: Lisinopril 5 MG TAB PO SCH (08:27)
[2020-08-02] MEDS: Pioglitazone HCl 15 MG TAB PO SCH (08:28)
[2020-08-02] MEDS: Multivitamin W/ Minerals 1 TAB PO SCH (08:28)
[2020-08-02] MEDS: ESOMEPRAZOLE 20 MG PO SCH ×2 (08:28→20:50)
[2020-08-02] MEDS: Pregabalin 75 MG CAP PO SCH ×2 (08:28→20:48)
[2020-08-02] MEDS: Zinc Sulfate 220 MG CAP PO SCH (08:29)
[2020-08-02] MEDS: Saccharomyces boulardii 250 MG CAP PO SCH (08:29)
[2020-08-02] MEDS: TICAGRELOR 90 MG TABLET PO SCH ×2 (08:29→20:50)
--- NOTE | 2020-08-02 15:36 | PRG ---
DATE OF SERVICE: 08/02/2020 SUBJECTIVE: Today, the patient states that he is having continued shortness of breath and would like an inhaler to use for this. He has greater than 40-year history of tobacco use and has chronic COPD as well. A nonproductive cough. No hemoptysis. No wheezing. REVIEW OF SYSTEMS: Denies fever, chills, nausea, vomiting, diarrhea, chest pain, or palpitations. OBJECTIVE: VITAL SIGNS: Temperature 98.6, pulse 91, blood pressure is ranging 95/51 to 106/63, respiratory rate 18, O2 saturations 96% on room air. GENERAL: Well-appearing, well-developed, 80-year-old male, who appears skinnier than last seen in clinic. NECK: No carotid bruits. No JVD. No thyromegaly. RESPIRATORY: Diminished breath sounds bilaterally. No wheezes or rhonchi. CARDIOVASCULAR: Regular rate and rhythm. No murmurs, gallops, or rubs. ABDOMEN: Soft, nontender to palpation. Bowel sounds positive in all 4 quadrants. EXTREMITIES: No rashes. No edema. IMPRESSION: 1. Status post recent COVID infection with overlying pneumonia. 2. Resolved acute hypoxemic respiratory failure. 3. Coronary artery disease. 4. Diabetes type 2. 5. Atrial fibrillation. 6. Hypertension. 7. Resolved hypokalemia. 8. Improved deconditioning. PLAN: 1. Discontinue lisinopril as the patient is having episodes of hypotension and encourage fluid intake. 2. ADA diet. 3. Accu-Cheks with sliding scale coverage. 4. Start Dulera for COPD. 5. Physical therapy. 6. DVT prophylaxis. 7. Decubitus precautions. 8. Continue to monitor BP. 9. Continue all other current medications including Levaquin 750 until 08/03/2020. Job ID: [id number]
[2020-08-02] MEDS: Mometasone/Formoterol 60 PUFF AER INH SCH (17:41)
[2020-08-02] MEDS: Simvastatin 40 MG TAB PO SCH (20:49)
[2020-08-03] MEDS: Mometasone/Formoterol 60 PUFF AER INH SCH ×2 (05:29→17:54)
[2020-08-03] MEDS: Pioglitazone HCl 15 MG TAB PO SCH (08:20)
[2020-08-03] MEDS: TICAGRELOR 90 MG TABLET PO SCH ×2 (08:20→20:46)
[2020-08-03] MEDS: ESOMEPRAZOLE 20 MG PO SCH ×2 (08:20→20:45)
[2020-08-03] MEDS: Ferrous Sulfate 325 MG TAB PO SCH (08:20)
[2020-08-03] MEDS: Saccharomyces boulardii 250 MG CAP PO SCH (08:20)
[2020-08-03] MEDS: Furosemide 20 MG TAB PO SCH (08:21)
[2020-08-03] MEDS: metFORMIN 500 MG TAB PO SCH ×2 (08:21→16:59)
[2020-08-03] MEDS: Cholecalciferol 1,000 UNITS (25 MCG) TAB PO SCH (08:21)
[2020-08-03] MEDS: Pregabalin 75 MG CAP PO SCH ×2 (08:21→20:46)
[2020-08-03] MEDS: Alogliptin 25 MG TAB PO SCH (08:21)
[2020-08-03] MEDS: Calcium Carbonate 500 MG TAB PO SCH (08:21)
[2020-08-03] MEDS: Aspirin 81 mg Enteric Coated Tablet PO SCH (08:21)
[2020-08-03] MEDS: Potassium Chloride 20 MEQ TAB PO SCH (08:21)
[2020-08-03] MEDS: Gabapentin 400 MG CAP PO SCH ×2 (08:22→20:46)
[2020-08-03] MEDS: Multivitamin W/ Minerals 1 TAB PO SCH (08:22)
[2020-08-03] MEDS: Zinc Sulfate 220 MG CAP PO SCH (08:22)
[2020-08-03] MEDS: Simvastatin 40 MG TAB PO SCH (20:46)
[2020-08-04] MEDS: HumaLOG 300 UNITS/3 ML VIAL SC PRN ×2 (05:29→12:12)
[2020-08-04] MEDS: Mometasone/Formoterol 60 PUFF AER INH SCH ×2 (05:30→18:01)
[2020-08-04] MEDS: TICAGRELOR 90 MG TABLET PO SCH ×2 (08:52→21:12)
[2020-08-04] MEDS: Alogliptin 25 MG TAB PO SCH (08:53)
[2020-08-04] MEDS: metFORMIN 500 MG TAB PO SCH ×2 (08:53→16:11)
[2020-08-04] MEDS: Pregabalin 75 MG CAP PO SCH ×2 (08:53→21:11)
[2020-08-04] MEDS: Ferrous Sulfate 325 MG TAB PO SCH (08:53)
[2020-08-04] MEDS: Saccharomyces boulardii 250 MG CAP PO SCH (08:53)
[2020-08-04] MEDS: Multivitamin W/ Minerals 1 TAB PO SCH (08:53)
[2020-08-04] MEDS: Pioglitazone HCl 15 MG TAB PO SCH (08:53)
[2020-08-04] MEDS: Calcium Carbonate 500 MG TAB PO SCH (08:53)
[2020-08-04] MEDS: Furosemide 20 MG TAB PO SCH (08:53)
[2020-08-04] MEDS: Cholecalciferol 1,000 UNITS (25 MCG) TAB PO SCH (08:54)
[2020-08-04] MEDS: Aspirin 81 mg Enteric Coated Tablet PO SCH (08:54)
[2020-08-04] MEDS: Zinc Sulfate 220 MG CAP PO SCH (08:54)
[2020-08-04] MEDS: Gabapentin 400 MG CAP PO SCH ×2 (08:54→21:10)
[2020-08-04] MEDS: Potassium Chloride 20 MEQ TAB PO SCH (08:54)
[2020-08-04] MEDS: ESOMEPRAZOLE 20 MG PO SCH ×2 (08:56→21:13)
--- NOTE | 2020-08-04 14:54 | PRG ---
DATE OF SERVICE: 08/03/2020 SUBJECTIVE: This is an 80-year-old male, here for inpatient physical therapy and occupational therapy status post pneumonia secondary to COVID-19 infection. Overall, the patient is doing well and improving with physical therapy. He is still somewhat anxious about getting up and moving in his shortness of breath; however, this is improving as well. The patient's blood pressure does remain borderline hypotensive with a blood pressure 87/58 to 138/52. The patient is symptomatic from this. Today, the patient reports lower extremity edema, worse after sitting in his wheelchair all day and having his legs in a dependent position. REVIEW OF SYSTEMS: Denies any fever, chills, cough, congestion, nausea, vomiting, diarrhea. He does report bilateral lower extremity edema as reported above. OBJECTIVE: VITAL SIGNS: Temperature 97.5, pulse 98 to 100, respiratory rate 18, O2 sats 98% on room air, blood pressure ranging 87/58 to 138/52. GENERAL: Well-appearing 80-year-old male, lying in bed, in no acute distress. NECK: No JVD. No thyromegaly. RESPIRATORY: Clear to auscultation bilaterally. No wheezes. CARDIOVASCULAR: Regular rate and Irreg-Irreg rhythm. No murmurs, gallops, or rubs. GI: Soft, nontender to palpation. Bowel sounds positive in all 4 quadrants. EXTREMITIES: 1+ pitting edema seen bilaterally. ASSESSMENT: 1. Status post recent COVID infection with overlying pneumonia. 2. Resolved acute hypoxemic respiratory failure. 3. Coronary artery disease. 4. Diabetes type 2. 5. Atrial fibrillation. 6. Hypertension. 7. Resolved hypokalemia. 8. Improving deconditioning. 9. Transient troponemia while at [facility] attributed to anxiety. PLAN: 1. Lisinopril was discontinued due to episodes of hypotension; however, the patient remains to be borderline hypotensive. We will encourage fluid intake as well as switching his Imdur from the morning to nighttime. The patient was placed on this for angina, so we do not want to discontinue it fully. 2. ADA diet. 3. Accu-Cheks with sliding scale coverage. Sugars have been well controlled in the 100s. 4. Continue Dulera for COPD. 5. Physical therapy. 6. DVT prophylaxis. 7. Decubitus precautions. 8. Fall precautions. 9. Continue to monitor BP. 10. Today is his last dose of Levaquin 750. Job ID: [id number] MTDD
--- NOTE | 2020-08-04 15:24 | PRG ---
DATE OF SERVICE: 08/04/2020 SUBJECTIVE: Patient is a well-appearing 80-year-old male, who is here for inpatient physical therapy status post pneumonia secondary to COVID-19 infection. Overall, patient is progressing well in physical therapy and is in a pleasant mood today because his TV has been fixed and this was a source of frustration for him. Nonproductive cough. No wheezing. No hemoptysis. The patient is less anxious when getting up and moving around physical therapy. He continues to do well. REVIEW OF SYSTEMS: Denies any fever, chills, nausea, vomiting, chest pain, palpitations. OBJECTIVE: VITAL SIGNS: Today temperature 97.6, pulse 98, respiratory rate 20, O2 saturation is 99 on room air, pulse is 94 to 98, and blood pressure ranged 91/54 to 115/57. GENERAL: Well-appearing 80-year-old male lying in bed with compression stockings in place, in no acute distress. NECK: No JVD. No thyromegaly. RESPIRATORY: Clear to auscultation bilaterally. No wheezes or rhonchi. HEART: Regular rate and Irreg-Irreg rhythm. No murmurs, gallops, or rubs. GI: Nontender to palpation. Bowel sounds positive in all four quadrants. EXTREMITIES: Trace edema bilaterally. IMPRESSION: 1. Status post pneumonia secondary to COVID-19 infection. 2. Resolved acute hypoxemic respiratory failure. 3. Coronary artery disease. 4. Diabetes type 2. 5. Atrial fibrillation. 6. Hypertension. 7. Resolved hyperkalemia. 8. Improved deconditioning. 9. Transient troponemia attributed to anxiety, while in [facility]. PLAN: 1. I will discuss Imdur with Cardiology to see if it is okay to discontinue his medication. Risk and benefits discussed. For now will switch Imdur to qhs. 2. ADA diet. 3. Accu-Cheks with sliding scale coverage. Sugars have been in the low 100s. 4. Continue Dulera for COPD. 5. Continue COVID precautions due to patient having Dulera inhaler. 6. DVT prophylaxis. 7. Decubitus precautions. 8. Continue to monitor BP. Follow up with Cardiology regarding Imdur. Job ID: [id number] [facility] CENTERBrielle
[2020-08-04] MEDS: Simvastatin 40 MG TAB PO SCH (21:11)
[2020-08-05 05:44] LABS: Anion Gap 14 mmol/L (10-20); BUN (Urea Nitrogen) 22 mg/dL (8.4-25.7); Calc. Creatinine Clearance 66 mL/min (70-130); Calcium 8.4 mg/dL (7.8-10.44); Carbon Dioxide 27 mmol/L (23-31); Chloride 97 mmol/L (98-107); Glucose 176 mg/dL (83-110); Potassium 3.9 mmol/L (3.5-5.1); Sodium 134 mmol/L (136-145)
[2020-08-05 05:56] LABS: #Basophils 0.1 thou/uL (0.0-0.2); #Lymphocytes 1.2 thou/uL (1.20-3.40); #Monocytes 0.8 thou/uL (0.11-0.59); #Neutrophils 6.2 thou/uL (1.40-6.50); %Basophils 1.1 % (0.0-1.0); %Eosinophils 0.3 % (0.0-10.0); %Lymphocytes 14.1 % (21.0-51.0); %Monocytes 9.4 % (0.0-10.0); %Neutrophils 75.1 % (42.0-75.0); Anisocytosis MODERATE=16-30 cells (100X) (0-5/hpf); Hemoglobin 7.7 g/dL (14.0-18.0); Hypochromia MODERATE=16-30 cells (100X) (0-5/hpf); MDiff Complete? YES; Mean Corpuscular HGB CONC 30.3 g/dL (32.0-36.0); Mean Corpuscular Hemoglobin 21.6 pg (27.0-31.0); Mean Corpuscular Volume 71.2 fL (78.0-98.0); Mean Platelet Volume 8.6 fL (7.4-10.4); Microcytosis MODERATE=15-30 cells (100X) (0-5/hpf); Ovalocytes MODERATE= 6-15 cells (100X) (0-1/hpf); Platelet Count 321 thou/uL (130-400); RBC Distribution Width 16.5 % (11.5-14.5); Red Blood Cell (RBC) Count 3.56 mill/uL (4.70-6.10); Target Cells SLIGHT = 2-5 cells (100X) (0-1/hpf); Tear Drops SLIGHT = 2-5 cells (100X) (0-1/hpf); White Blood Cell (WBC) Count 8.3 thou/uL (4.8-10.8)
[2020-08-05] MEDS: Mometasone/Formoterol 60 PUFF AER INH SCH ×2 (06:02→17:44)
[2020-08-05] MEDS: HumaLOG 300 UNITS/3 ML VIAL SC PRN ×3 (06:05→17:14)
[2020-08-05] MEDS: Pioglitazone HCl 15 MG TAB PO SCH (08:28)
[2020-08-05] MEDS: Multivitamin W/ Minerals 1 TAB PO SCH (08:28)
[2020-08-05] MEDS: Aspirin 81 mg Enteric Coated Tablet PO SCH (08:28)
[2020-08-05] MEDS: Gabapentin 400 MG CAP PO SCH ×2 (08:29→21:04)
[2020-08-05] MEDS: Ferrous Sulfate 325 MG TAB PO SCH (08:29)
[2020-08-05] MEDS: Zinc Sulfate 220 MG CAP PO SCH (08:29)
[2020-08-05] MEDS: metFORMIN 500 MG TAB PO SCH ×2 (08:29→17:45)
[2020-08-05] MEDS: Saccharomyces boulardii 250 MG CAP PO SCH (08:31)
[2020-08-05] MEDS: Calcium Carbonate 500 MG TAB PO SCH (08:31)
[2020-08-05] MEDS: Cholecalciferol 1,000 UNITS (25 MCG) TAB PO SCH (08:31)
[2020-08-05] MEDS: Pregabalin 75 MG CAP PO SCH ×2 (08:32→21:03)
[2020-08-05] MEDS: Potassium Chloride 20 MEQ TAB PO SCH (08:33)
[2020-08-05] MEDS: Alogliptin 25 MG TAB PO SCH (08:34)
[2020-08-05] MEDS: ESOMEPRAZOLE 20 MG PO SCH ×2 (08:35→21:06)
[2020-08-05] MEDS: TICAGRELOR 90 MG TABLET PO SCH ×2 (08:37→21:06)
[2020-08-05] MEDS: Furosemide 20 MG TAB PO SCH (12:16)
--- NOTE | 2020-08-05 13:22 | PRG ---
DATE OF SERVICE: 08/05/2020 SUBJECTIVE: The patient is doing well, overall progressing well in therapy. He does report that his swelling is improving as well. He does think that the compression stockings are working well. Nursing staff states that his blood pressure has improved today; however, it was still low in the 100 to one teens; however, it did raise up to 130/59 this morning as well. We will continue with Imdur at night and I am going to switch the Lasix to p.r.n. to help keep blood pressure elevated. REVIEW OF SYSTEMS: Denies any fever, chills, cough, congestion, chest pain, or palpitations. Denies vomiting or diarrhea. OBJECTIVE: VITAL SIGNS: Temperature 96.3, pulse 92, respiratory rate 20, O2 saturations 99% on room air, and blood pressure ranged 99/56 to 130/59. GENERAL: Well-appearing 80-year-old male, sitting up in wheelchair next to bed, in no acute distress, watching television. NECK: No JVD. No thyromegaly. RESPIRATORY: Clear to auscultation bilaterally. No wheezes. CARDIOVASCULAR: Regular rate and rhythm. No murmurs, gallops, or rubs. ABDOMEN: Soft and nontender to palpation. Bowel sounds positive in all four quadrants. LABORATORY DATA: WBC 8.3, hemoglobin 7.7, hematocrit 25.3, platelets 321, and MCV of 71.2. Chemistry; sodium 134, potassium 3.9, chloride 97, CO2 of 27, BUN 22, creatinine 1.09, GFR 65, CBG is 166 to 185, and calcium 8.4. ASSESSMENT: 1. Status post pneumonia secondary to COVID-19 infection. 2. Resolved acute hypoxemic respiratory failure. 3. Coronary artery disease. 4. Diabetes type 2. 5. Atrial fibrillation. 6. Hypertension. 7. Resolved hyperkalemia. 8. Improved deconditioning. 9. Transient troponemia while in [facility], this was attributed to anxiety. PLAN: 1. Continue Imdur at night. Switch Lasix to p.r.n. for swelling. This will hopefully continue to keep blood pressure elevated. 2. ADA diet. 3. Accu-Cheks sliding scale coverage. 4. Continue Dulera for COPD. 5. Continue COVID precautions due to the patient using Dulera inhaler. 6. DVT precautions. 7. Decubitus precautions. 8. Continue to monitor blood pressure. 9. Continue PT and OT. Job ID: [id number]
[2020-08-05] MEDS: Simvastatin 40 MG TAB PO SCH (21:05)
[2020-08-06] MEDS: Mometasone/Formoterol 60 PUFF AER INH SCH ×2 (05:54→18:35)
[2020-08-06] MEDS: HumaLOG 300 UNITS/3 ML VIAL SC PRN ×3 (06:01→17:34)
[2020-08-06] MEDS: Gabapentin 400 MG CAP PO SCH ×2 (08:48→20:56)
[2020-08-06] MEDS: Saccharomyces boulardii 250 MG CAP PO SCH (08:48)
[2020-08-06] MEDS: metFORMIN 500 MG TAB PO SCH ×2 (08:50→17:33)
[2020-08-06] MEDS: Aspirin 81 mg Enteric Coated Tablet PO SCH (08:50)
[2020-08-06] MEDS: Zinc Sulfate 220 MG CAP PO SCH (08:50)
[2020-08-06] MEDS: Ferrous Sulfate 325 MG TAB PO SCH (08:51)
[2020-08-06] MEDS: Furosemide 20 MG TAB PO SCH (08:51)
[2020-08-06] MEDS: Cholecalciferol 1,000 UNITS (25 MCG) TAB PO SCH (08:51)
[2020-08-06] MEDS: Alogliptin 25 MG TAB PO SCH (08:51)
[2020-08-06] MEDS: Pregabalin 75 MG CAP PO SCH ×2 (08:52→20:57)
[2020-08-06] MEDS: Multivitamin W/ Minerals 1 TAB PO SCH (08:53)
[2020-08-06] MEDS: Pioglitazone HCl 15 MG TAB PO SCH (08:53)
[2020-08-06] MEDS: Calcium Carbonate 500 MG TAB PO SCH (08:54)
[2020-08-06] MEDS: Potassium Chloride 20 MEQ TAB PO SCH (08:54)
[2020-08-06] MEDS: ESOMEPRAZOLE 20 MG PO SCH ×2 (08:56→20:58)
[2020-08-06] MEDS: TICAGRELOR 90 MG TABLET PO SCH ×2 (08:56→20:57)
[2020-08-06] MEDS: Simvastatin 40 MG TAB PO SCH (20:57)
[2020-08-07] MEDS: Mometasone/Formoterol 60 PUFF AER INH SCH ×2 (05:49→17:41)
[2020-08-07] MEDS: HumaLOG 300 UNITS/3 ML VIAL SC PRN ×3 (05:54→17:36)
--- NOTE | 2020-08-07 07:32 | PRG ---
DATE OF SERVICE: 08/07/2020 SUBJECTIVE: The patient is sitting up in a chair, visiting with his . Denying any complaints of shortness of breath or chest pain. He states that he wants to do more therapy, so he can go home. Denies any cough, fever, chills, or palpitations. OBJECTIVE: VITAL SIGNS: Shows temperature is 98.1, pulse 87, respirations 18, O2 sats 96% on room air, blood pressure 105/57. LUNGS: Clear. CARDIAC: Shows regular rhythm. ABDOMEN: Soft and nontender. SKIN/EXTREMITIES: Display no edema, clubbing, or cyanosis. NEUROLOGIC: Shows no focal findings. ASSESSMENT: 1. Resolving hypoxic respiratory failure secondary to COVID infection. 2. Stable coronary disease, asymptomatic. 3. Stable type 2 diabetes. 4. Stable atrial fibrillation no evidence of recurrence at this time. 5. Stable coronary disease status post recent non-ST myocardial infarction. 6. Stable type 2 diabetes, controlled to goal. PLAN: 1. Continue PT, OT. 2. Continue to monitor for recurrent atrial fib, TIAs. 3. Continue to monitor for recurrent chest pain or shortness of breath with therapy. 4. Continue Accu-Cheks to monitor and titrate and control diabetes. Job ID: [id number]
[2020-08-07] MEDS: Potassium Chloride 20 MEQ TAB PO SCH (08:21)
[2020-08-07] MEDS: Pregabalin 75 MG CAP PO SCH ×2 (08:21→21:08)
[2020-08-07] MEDS: Aspirin 81 mg Enteric Coated Tablet PO SCH (08:21)
[2020-08-07] MEDS: metFORMIN 500 MG TAB PO SCH ×2 (08:21→17:35)
[2020-08-07] MEDS: Zinc Sulfate 220 MG CAP PO SCH (08:21)
[2020-08-07] MEDS: Alogliptin 25 MG TAB PO SCH (08:21)
[2020-08-07] MEDS: Saccharomyces boulardii 250 MG CAP PO SCH (08:21)
[2020-08-07] MEDS: Gabapentin 400 MG CAP PO SCH ×2 (08:24→21:07)
[2020-08-07] MEDS: Furosemide 20 MG TAB PO SCH (08:25)
[2020-08-07] MEDS: Calcium Carbonate 500 MG TAB PO SCH (08:25)
[2020-08-07] MEDS: Pioglitazone HCl 15 MG TAB PO SCH (08:25)
[2020-08-07] MEDS: Cholecalciferol 1,000 UNITS (25 MCG) TAB PO SCH (08:25)
[2020-08-07] MEDS: Ferrous Sulfate 325 MG TAB PO SCH (08:25)
[2020-08-07] MEDS: ESOMEPRAZOLE 20 MG PO SCH ×2 (08:26→21:10)
[2020-08-07] MEDS: Multivitamin W/ Minerals 1 TAB PO SCH (08:26)
[2020-08-07] MEDS: TICAGRELOR 90 MG TABLET PO SCH ×2 (08:27→21:10)
[2020-08-07] MEDS: Simvastatin 40 MG TAB PO SCH (21:10)
[2020-08-08] MEDS: Mometasone/Formoterol 60 PUFF AER INH SCH ×2 (06:18→17:41)
--- NOTE | 2020-08-08 07:35 | PRG ---
DATE OF SERVICE: 08/06/[address] Huan Pacheco. SUBJECTIVE: The patient feels well with no complaints, is asking for more therapy. has concerns about his medications particularly why his Plavix was changed to Brilinta and explained to her about the platelet activation test showing inactivity of Plavix. She also asked about why he is on beta nathalie, nitrates as he was not on these previously and explained to her that had an elevation of his troponins consistent with demand ischemia, non-STEMI. She states that her tube worker, Dr. Lyons has had a negative stress test last year and had been off these medicines. He has had no chest pain or shortness of breath since then. He has had no recurrence of atrial fibrillation. She also is asking if he is still on levofloxacin. OBJECTIVE: VITAL SIGNS: Temperature is 97.8, pulse is 84, respirations 20, O2 sats 99% on room air, and blood pressure 115/84. LUNGS: Clear. CARDIAC: Shows regular rhythm. LABORATORY DATA: Accu-Cheks range 155 to 170. Most recent laboratories several days ago showed a creatinine 1.09, GFR 65. Hemoglobin 7.7, hematocrit of 25. ASSESSMENT: 1. Resolving COVID-19 pneumonia with chest x-ray showing resolving left lower lobe infiltrate as compared to bilateral infiltrates. 2. Resolved respiratory failure with normal vital signs. 3. Persistent anemia, most likely due to anemia of acute disease. We will follow closely. 4. Diabetes type 2, controlled to goal. 5. Severe deconditioning, improving greatly. 6. Transient elevated troponin felt to be due to demand ischemia, but has been restarted back on nitrates and beta blockers and I have discussion with the patient's , who deferred discontinuation of these medications to his primary tube worker, Dr. Serg Lyons. PLAN: 1. Start PT/OT tomorrow. Continue to monitor for signs of shortness of breath, palpitations, and chest pain with therapy. 2. Repeat labs next week. 3. Continue Accu-Cheks to monitor and titrate and control diabetes. 4. Continue to monitor for recurrent atrial fibrillation. Job ID: [id number]
[2020-08-08] MEDS: TICAGRELOR 90 MG TABLET PO SCH ×2 (08:26→20:42)
[2020-08-08] MEDS: Saccharomyces boulardii 250 MG CAP PO SCH (08:27)
[2020-08-08] MEDS: Pioglitazone HCl 15 MG TAB PO SCH (08:27)
[2020-08-08] MEDS: Pregabalin 75 MG CAP PO SCH ×2 (08:27→20:45)
[2020-08-08] MEDS: Zinc Sulfate 220 MG CAP PO SCH (08:30)
[2020-08-08] MEDS: Furosemide 20 MG TAB PO SCH (08:30)
[2020-08-08] MEDS: Multivitamin W/ Minerals 1 TAB PO SCH (08:30)
[2020-08-08] MEDS: Aspirin 81 mg Enteric Coated Tablet PO SCH (08:30)
[2020-08-08] MEDS: Potassium Chloride 20 MEQ TAB PO SCH (08:31)
[2020-08-08] MEDS: Alogliptin 25 MG TAB PO SCH (08:31)
[2020-08-08] MEDS: Ferrous Sulfate 325 MG TAB PO SCH (08:31)
[2020-08-08] MEDS: Cholecalciferol 1,000 UNITS (25 MCG) TAB PO SCH (08:31)
[2020-08-08] MEDS: Calcium Carbonate 500 MG TAB PO SCH (08:32)
[2020-08-08] MEDS: Gabapentin 400 MG CAP PO SCH ×2 (08:32→20:44)
[2020-08-08] MEDS: metFORMIN 500 MG TAB PO SCH ×2 (08:33→17:40)
[2020-08-08] MEDS: ESOMEPRAZOLE 20 MG PO SCH ×2 (08:40→20:46)
[2020-08-08] MEDS: HumaLOG 300 UNITS/3 ML VIAL SC PRN ×2 (12:10→17:49)
--- NOTE | 2020-08-08 13:21 | PRG ---
DATE OF SERVICE: 08/08/2020 SUBJECTIVE: This is a pleasant 80-year-old male, here for continued PT and OT services, status post pneumonia secondary to COVID-19. The patient is doing well in physical therapy; however, he feels like he can do more physical therapy. He feels like he is not being pushed enough to get stronger. He is enjoying physical therapy, however. Overall, doing well, no acute events noted. REVIEW OF SYSTEMS: Denies any fever, chills, cough, congestion, nausea, vomiting, diarrhea. Reports that he feels he is getting stronger. OBJECTIVE: VITAL SIGNS: Temperature 97.8, pulse 72, respiratory rate 20, O2 sats 98% on room air, blood pressure 103/55 to 128/60. LABORATORY DATA: CBGs ranging from 165 to 221. ASSESSMENT: 1. Deconditioning, status post pneumonia secondary to COVID-19 infection, improving greatly. 2. Hypertension. 3. Hyperlipidemia. 4. Persistent anemia, most likely due to anemia of unknown etiology. 5. Type 2 diabetes. 6. Severe deconditioning. 7. Transient elevated troponin, felt to be due to demand ischemia from anxiety. PLAN: 1. Continue PT/OT. 2. Continue routine lab work. 3. Continue Accu-Cheks to monitor and titrate and control diabetes. 4. Diabetic diet. 5. We will discuss his regimen with PT and see if he is able to have more exercises. 6. The patient is on Dulera. We will continue this for now as the patient does have a history of shortness of breath and this seems to be helping him during physical therapy. 7. Continue Imdur at bedtime. BP seems to be improving. Job ID: [id number]
[2020-08-08] MEDS: Simvastatin 40 MG TAB PO SCH (20:42)
[2020-08-09] MEDS: Mometasone/Formoterol 60 PUFF AER INH SCH ×2 (06:17→17:23)
[2020-08-09] MEDS: Pioglitazone HCl 15 MG TAB PO SCH (09:04)
[2020-08-09] MEDS: Pregabalin 75 MG CAP PO SCH ×2 (09:05→20:57)
[2020-08-09] MEDS: Saccharomyces boulardii 250 MG CAP PO SCH (09:05)
[2020-08-09] MEDS: metFORMIN 500 MG TAB PO SCH ×2 (09:06→17:17)
[2020-08-09] MEDS: Potassium Chloride 20 MEQ TAB PO SCH (09:06)
[2020-08-09] MEDS: Gabapentin 400 MG CAP PO SCH ×2 (09:07→20:56)
[2020-08-09] MEDS: Multivitamin W/ Minerals 1 TAB PO SCH (09:07)
[2020-08-09] MEDS: Aspirin 81 mg Enteric Coated Tablet PO SCH (09:08)
[2020-08-09] MEDS: Cholecalciferol 1,000 UNITS (25 MCG) TAB PO SCH (09:08)
[2020-08-09] MEDS: Ferrous Sulfate 325 MG TAB PO SCH (09:08)
[2020-08-09] MEDS: TICAGRELOR 90 MG TABLET PO SCH ×2 (09:08→20:58)
[2020-08-09] MEDS: Alogliptin 25 MG TAB PO SCH (09:08)
[2020-08-09] MEDS: Calcium Carbonate 500 MG TAB PO SCH (09:08)
[2020-08-09] MEDS: ESOMEPRAZOLE 20 MG PO SCH ×2 (09:09→20:58)
[2020-08-09] MEDS: Zinc Sulfate 220 MG CAP PO SCH (09:09)
[2020-08-09] MEDS: Furosemide 20 MG TAB PO SCH (13:31)
[2020-08-09] MEDS: HumaLOG 300 UNITS/3 ML VIAL SC PRN (16:18)
[2020-08-09] MEDS: Simvastatin 40 MG TAB PO SCH (20:58)
[2020-08-10 05:45] LABS: #Basophils 0.1 thou/uL (0.0-0.2); #Lymphocytes 1.2 thou/uL (1.20-3.40); #Monocytes 0.6 thou/uL (0.11-0.59); #Neutrophils 4.2 thou/uL (1.40-6.50); %Basophils 1.1 % (0.0-1.0); %Eosinophils 0.3 % (0.0-10.0); %Lymphocytes 19.7 % (21.0-51.0); %Monocytes 9.5 % (0.0-10.0); %Neutrophils 69.4 % (42.0-75.0); Anisocytosis MODERATE=16-30 cells (100X) (0-5/hpf); Bite Cells SLIGHT = 2-5 cells (100X) (0-1/hpf); Hemoglobin 7.1 g/dL (14.0-18.0); Hypochromia MODERATE=16-30 cells (100X) (0-5/hpf); MDiff Complete? YES; Mean Corpuscular HGB CONC 30.3 g/dL (32.0-36.0); Mean Corpuscular Hemoglobin 21.6 pg (27.0-31.0); Mean Corpuscular Volume 71.3 fL (78.0-98.0); Mean Platelet Volume 8.9 fL (7.4-10.4); Microcytosis MODERATE=15-30 cells (100X) (0-5/hpf); Ovalocytes SLIGHT = 2-5 cells (100X) (0-1/hpf); Platelet Count 333 thou/uL (130-400); Platelet Morphology Comment Appears Adequate; Poikilocytosis MODERATE=16-30 cells (100X) (0-5/hpf); Red Blood Cell (RBC) Count 3.28 mill/uL (4.70-6.10); Stomatocytes SLIGHT = 2-5 cells (100X) (0-1/hpf); Target Cells SLIGHT = 2-5 cells (100X) (0-1/hpf); Tear Drops SLIGHT = 2-5 cells (100X) (0-1/hpf)
[2020-08-10] MEDS: Mometasone/Formoterol 60 PUFF AER INH SCH ×2 (05:53→17:38)
[2020-08-10] MEDS: HumaLOG 300 UNITS/3 ML VIAL SC PRN ×3 (05:54→20:36)
[2020-08-10] MEDS: Gabapentin 400 MG CAP PO SCH ×2 (08:34→20:29)
[2020-08-10] MEDS: Pregabalin 75 MG CAP PO SCH ×2 (08:35→20:31)
[2020-08-10] MEDS: Aspirin 81 mg Enteric Coated Tablet PO SCH (08:35)
[2020-08-10] MEDS: Zinc Sulfate 220 MG CAP PO SCH (08:36)
[2020-08-10] MEDS: metFORMIN 500 MG TAB PO SCH ×2 (08:36→17:37)
[2020-08-10] MEDS: Alogliptin 25 MG TAB PO SCH (08:36)
[2020-08-10] MEDS: Pioglitazone HCl 15 MG TAB PO SCH (08:36)
[2020-08-10] MEDS: Potassium Chloride 20 MEQ TAB PO SCH (08:37)
[2020-08-10] MEDS: Ferrous Sulfate 325 MG TAB PO SCH (08:37)
[2020-08-10] MEDS: Calcium Carbonate 500 MG TAB PO SCH (08:37)
[2020-08-10] MEDS: Multivitamin W/ Minerals 1 TAB PO SCH (08:37)
[2020-08-10] MEDS: Saccharomyces boulardii 250 MG CAP PO SCH (08:37)
[2020-08-10] MEDS: Furosemide 20 MG TAB PO SCH (08:37)
[2020-08-10] MEDS: Cholecalciferol 1,000 UNITS (25 MCG) TAB PO SCH (08:37)
[2020-08-10] MEDS: TICAGRELOR 90 MG TABLET PO SCH ×2 (08:38→20:32)
[2020-08-10] MEDS: ESOMEPRAZOLE 20 MG PO SCH ×2 (08:38→20:32)
[2020-08-10] MEDS: Simvastatin 40 MG TAB PO SCH (20:32)
[2020-08-11] MEDS: Mometasone/Formoterol 60 PUFF AER INH SCH ×2 (06:35→17:30)
[2020-08-11] MEDS: HumaLOG 300 UNITS/3 ML VIAL SC PRN ×2 (06:38→12:08)
[2020-08-11] MEDS: Gabapentin 400 MG CAP PO SCH ×2 (08:16→21:13)
[2020-08-11] MEDS: Saccharomyces boulardii 250 MG CAP PO SCH (08:16)
[2020-08-11] MEDS: Potassium Chloride 20 MEQ TAB PO SCH (08:17)
[2020-08-11] MEDS: Pioglitazone HCl 15 MG TAB PO SCH (08:17)
[2020-08-11] MEDS: Pregabalin 75 MG CAP PO SCH ×2 (08:17→21:14)
[2020-08-11] MEDS: Aspirin 81 mg Enteric Coated Tablet PO SCH (08:17)
[2020-08-11] MEDS: Calcium Carbonate 500 MG TAB PO SCH (08:17)
[2020-08-11] MEDS: Alogliptin 25 MG TAB PO SCH (08:17)
[2020-08-11] MEDS: Zinc Sulfate 220 MG CAP PO SCH (08:17)
[2020-08-11] MEDS: Multivitamin W/ Minerals 1 TAB PO SCH (08:17)
[2020-08-11] MEDS: Ferrous Sulfate 325 MG TAB PO SCH (08:18)
[2020-08-11] MEDS: metFORMIN 500 MG TAB PO SCH ×2 (08:18→17:31)
[2020-08-11] MEDS: TICAGRELOR 90 MG TABLET PO SCH ×2 (08:18→21:12)
[2020-08-11] MEDS: Cholecalciferol 1,000 UNITS (25 MCG) TAB PO SCH (08:18)
[2020-08-11] MEDS: Furosemide 20 MG TAB PO SCH (08:19)
[2020-08-11] MEDS: ESOMEPRAZOLE 20 MG PO SCH ×2 (08:25→21:14)
--- NOTE | 2020-08-11 12:48 | PRG ---
DATE OF SERVICE: 08/10/2020 SUBJECTIVE: Pleasant 80-year-old male here for continued inpatient PT and OT services, status post pneumonia secondary to COVID-19. The patient states that he is doing really well in physical therapy and feels like he can do even more. He wants to have more sessions during the day. I will talk to physical therapy about this as well. Overall doing well. No acute events overnight. No longer having anxiety when standing up. REVIEW OF SYSTEMS: Denies any fever, chills, cough, congestion, chest pain, palpitations, nausea, vomiting, or diarrhea. OBJECTIVE: VITAL SIGNS: Temperature 96.2, pulse 85, respirations 16, O2 saturations 99% on room air, and blood pressure 110/54 to 133/63. GENERAL: Well-appearing 80-year-old male, sitting up in his chair at bedside, eating much. NECK: No JVD. No thyromegaly. HEART: Regular rate and rhythm. No murmurs, gallops, or rubs. CHEST: Clear to auscultation bilaterally. No wheezes or rhonchi. ABDOMEN: Soft and nontender to palpation. Bowel sounds positive in all four quadrants. EXTREMITIES: Compression stockings in place. LABORATORY DATA: White count 6.0, H and H 7.1 and 23.4, and MCV 71.3. Glucose range 146 to 184. ASSESSMENT: 1. Deconditioning status post pneumonia secondary to COVID-19 infection, improving. 2. Hypertension. 3. Hyperlipidemia. 4. Persistent anemia, likely iron deficiency anemia given MCV. 5. Type 2 diabetes. 6. Severe deconditioning. 7. Transient elevated troponin. PLAN: 1. Continue PT/OT. 2. Continue routine lab work. 3. Follow up on anemia as outpatient as the patient is asymptomatic. We will likely have to get a GI consult for this. 4. Continue before meals Accu-Cheks to monitor and titrate control of diabetes. 5. Diabetic diet. 6. Continue Dulera. 7. BP improving. Continue to monitor BP and continue Imdur at bedtime. Job ID: [id number] [facility]
--- NOTE | 2020-08-11 13:13 | PRG ---
DATE OF SERVICE: 08/09/2020 SUBJECTIVE: The patient is doing well. Blood pressure has been stable since switching Imdur to bedtime. The patient is still having some slight shortness of breath and anxiety with physical therapy, but is getting much stronger and he feels much stronger. He is happy that his TV is working now. REVIEW OF SYSTEMS: Denies any fever, chills, cough, congestion, chest pain, palpitations, nausea, vomiting, diarrhea. PHYSICAL EXAMINATION: VITAL SIGNS: Today, temperature 98, pulse 80, respirations 18, O2 sats 99% on room air, blood pressure 118/54. GENERAL: A well-appearing 80-year-old male lying in bed, in no acute distress. NECK: No JVD. No thyromegaly. HEART: Regular rate and rhythm. No murmurs, gallops, or rubs. CHEST: Clear to auscultation bilaterally. No wheezes or rhonchi. ABDOMEN: Soft, nontender to palpation in all four quadrants. Bowel sounds positive in all four quadrants. EXTREMITIES: Trace tibial edema. The patient does have compression stockings on. ASSESSMENT: 1. Deconditioning, he is status post pneumonia secondary to a COVID-19 infection, improving. 2. Hypertension. 3. Hyperlipidemia. 4. Persistent anemia, unknown etiology at this time. 5. Type 2 diabetes. 6. Severe deconditioning. 7. Transiently elevated troponin, felt to be due to demand ischemia from anxiety. PLAN: 1. Continue PT and OT. 2. Continue routine lab work with CBC and CMP in the morning. 3. Continue Accu-Cheks to monitor and titrate and control diabetes. 4. Diabetic diet. 5. Continue with his current PT regimen. 6. Continue Dulera. 7. Continue Imdur at bedtime. Continue to monitor blood pressure. Job ID: [id number]
--- NOTE | 2020-08-11 16:10 | PRG ---
DATE OF SERVICE: 08/11/2020 SUBJECTIVE: The patient is an 80-year-old male, here for inpatient PT and OT services. The patient is progressing very well in therapy and is scheduled to be discharged home tomorrow. The patient is excited to be going home. We will get outpatient therapy set up here at [place] for him on discharge. He will continue his current medications and he will be discharged home with his to his house. REVIEW OF SYSTEMS: Denies any fever, chills, cough, congestion, chest pain, palpitations, nausea, vomiting, or diarrhea. OBJECTIVE: VITAL SIGNS: Temperature 96.8, pulse 69, respirations 20, O2 sats 98% on room air, and BP ranged 99/53 to 123/59. GENERAL: A well-appearing 80-year-old male, lying in his recliner next to the hospital bed. NECK: No JVD. No thyromegaly. CHEST: Clear to auscultation bilaterally. No wheezes or rhonchi. HEART: Regular rate and rhythm. No murmurs, gallops, or rubs. ABDOMEN: Soft, nontender to palpation. Bowel sounds positive in all 4 quadrants. EXTREMITIES: Compression stockings in place. ASSESSMENT: 1. Weakness due to pneumonia secondary to COVID-19 infection, improving. 2. Hypertension. 3. Hyperlipidemia. 4. Persistent anemia, likely from iron-deficiency anemia given low MCV. We will get the patient an outpatient GI consult for this. 5. Type 2 diabetes. 6. Severe deconditioning. PLAN: 1. Continue PT/OT. We will set up for outpatient PT. 2. Continue Accu-Cheks nightly q.a.c. 3. Diabetic diet. 4. Continue Dulera. We will give him a prescription for this on discharge. The patient likely has a component of underlying COPD. 5. Continue Imdur at bedtime. We will continue this as well. 6. The patient is stable for discharge tomorrow. He will be discharged home with his . 7. He will have a followup with me in clinic sometime next week. Job ID: [id number]
[2020-08-11] MEDS: Simvastatin 40 MG TAB PO SCH (21:12)
[2020-08-12] MEDS: Mometasone/Formoterol 60 PUFF AER INH SCH (05:39)
[2020-08-12] MEDS: Alogliptin 25 MG TAB PO SCH (08:18)
[2020-08-12] MEDS: TICAGRELOR 90 MG TABLET PO SCH (08:18)
[2020-08-12] MEDS: Aspirin 81 mg Enteric Coated Tablet PO SCH (08:18)
[2020-08-12] MEDS: Gabapentin 400 MG CAP PO SCH (08:18)
[2020-08-12] MEDS: Pioglitazone HCl 15 MG TAB PO SCH (08:18)
[2020-08-12] MEDS: Potassium Chloride 20 MEQ TAB PO SCH (08:18)
[2020-08-12] MEDS: Ferrous Sulfate 325 MG TAB PO SCH (08:18)
[2020-08-12] MEDS: Calcium Carbonate 500 MG TAB PO SCH (08:19)
[2020-08-12] MEDS: Pregabalin 75 MG CAP PO SCH (08:19)
[2020-08-12] MEDS: Furosemide 20 MG TAB PO SCH (08:19)
[2020-08-12] MEDS: metFORMIN 500 MG TAB PO SCH (08:19)
[2020-08-12] MEDS: Saccharomyces boulardii 250 MG CAP PO SCH (08:20)
[2020-08-12] MEDS: Zinc Sulfate 220 MG CAP PO SCH (08:21)
[2020-08-12] MEDS: Multivitamin W/ Minerals 1 TAB PO SCH (08:21)
[2020-08-12] MEDS: Cholecalciferol 1,000 UNITS (25 MCG) TAB PO SCH (08:21)
[2020-08-12] MEDS: ESOMEPRAZOLE 20 MG PO SCH (08:23)
[2020-08-12 09:04] VITALS: BP 105/53; TEMP 96.1
[2020-08-12] MEDS: HumaLOG 300 UNITS/3 ML VIAL SC PRN (11:34)
== END 2020-08-12 14:25 | disposition home or self-care (01) | DRG 193 ==
LOC: NAV ACUTE 15:29
PROVIDERS: ADMIT Family Medicine; ATTEND Family Medicine
DX: J12.89 Other viral pneumonia (principal); I21.4 Non-ST elevation (NSTEMI) myocardial infarction; J96.01 Acute respiratory failure with hypoxia; J44.0 Chronic obstructive pulmonary disease with (acute) lower respiratory infection; I25.10 Atherosclerotic heart disease of native coronary artery without angina pectoris; I10 Essential (primary) hypertension; E11.42 Type 2 diabetes mellitus with diabetic polyneuropathy; E78.5 Hyperlipidemia, unspecified; K21.9 Gastro-esophageal reflux disease without esophagitis; D50.9 Iron deficiency anemia, unspecified; E87.6 Hypokalemia; Z88.1 Allergy status to other antibiotic agents; Z88.8 Allergy status to other drugs, medicaments and biological substances; Z98.890 Other specified postprocedural states; Z95.820 Peripheral vascular angioplasty status with implants and grafts; Z86.73 Personal history of transient ischemic attack (TIA), and cerebral infarction without residual deficits; Z79.82 Long term (current) use of aspirin; Z79.2 Long term (current) use of antibiotics; Z79.84 Long term (current) use of oral hypoglycemic drugs; I73.9 Peripheral vascular disease, unspecified; F41.9 Anxiety disorder, unspecified; I95.9 Hypotension, unspecified
CPT/HCPCS: 36415; 36416; 80048; 85025; 94664; J8540

== ENCOUNTER 2020-09-09 17:00 | Observation (INO) | payer MEDICARE, BC ==
[2020-09-10 06:25] LABS: Hemoglobin 8.4 g/dL (14.0-18.0); Red Blood Cell (RBC) Count 3.66 mill/uL (4.70-6.10); White Blood Cell (WBC) Count 5.2 thou/uL (4.8-10.8)
[2020-09-10 06:26] LABS: #Lymphocytes 1.1 thou/uL (1.20-3.40); #Monocytes 0.6 thou/uL (0.11-0.59); #Neutrophils 3.3 thou/uL (1.40-6.50); %Basophils 1.1 % (0.0-1.0); %Eosinophils 0.7 % (0.0-10.0); %Lymphocytes 21.9 % (21.0-51.0); %Monocytes 12.1 % (0.0-10.0); %Neutrophils 64.3 % (42.0-75.0); Manual Diff?? NO; Mean Corpuscular HGB CONC 31.3 g/dL (32.0-36.0); Mean Corpuscular Hemoglobin 22.8 pg (27.0-31.0); Mean Corpuscular Volume 72.9 fL (78.0-98.0); Mean Platelet Volume 9.8 fL (7.4-10.4); Platelet Count 281 thou/uL (130-400); RBC Distribution Width 21.7 % (11.5-14.5)
[2020-09-10 06:27] LABS: #Basophils 0.1 thou/uL (0.0-0.2)
[2020-09-10 06:35] VITALS: BMI 30.6
[2020-09-10] MEDS ORDERED: HumaLOG 300 UNITS/3 ML VIAL SC PRN (07:00)
[2020-09-10] MEDS ORDERED: Dextrose 5% in Water 1,000 ML IV PRN (07:00)
[2020-09-10] MEDS ORDERED: Dextrose 50% Abboject 50 ML SYRINGE IVP PRN (07:00)
[2020-09-10] MEDS ORDERED: Multivitamin W/ Minerals 1 TAB PO SCH (09:00)
[2020-09-10] MEDS ORDERED: Furosemide 20 MG TAB PO SCH (09:00)
[2020-09-10] MEDS ORDERED: Clopidogrel Bisulfate 75 MG TAB PO SCH (09:00)
[2020-09-10] MEDS ORDERED: Pregabalin 75 MG CAP PO SCH (09:00)
[2020-09-10] MEDS ORDERED: Cholecalciferol 1,000 UNITS (25 MCG) TAB PO SCH (09:00)
[2020-09-10] MEDS ORDERED: Alogliptin 25 MG TAB PO SCH (09:00)
[2020-09-10] MEDS ORDERED: Ferrous Sulfate 325 MG TAB PO SCH (09:00)
[2020-09-10] MEDS ORDERED: CALCIUM/MAGNESIUM/ZINC PO SCH (09:00)
[2020-09-10] MEDS ORDERED: Pioglitazone HCl 15 MG TAB PO SCH ×2 (09:00→16:02)
[2020-09-10 12:22] VITALS: BP 113/56; TEMP 96.9
[2020-09-10 15:46] LABS: Ferritin 10.97 ng/mL (22-322)
[2020-09-10] MEDS ORDERED: metFORMIN 500 MG TAB PO SCH (17:00)
[2020-09-10] MEDS ORDERED: Atorvastatin Calcium 20 MG TAB PO SCH (21:00)
[2020-09-10 23:55] LABS: SARS-CoV-2 MS2 Positive; SARS-CoV-2 N Gene Negative; SARS-CoV-2 S Gene Negative; SARS-CoV-2 by NAA Not Detected (NotDetected); SARS-CoV-2 orf1ab Negative
[2020-09-11] MEDS ORDERED: Furosemide 40 MG TAB PO SCH (09:00)
[2020-09-13 11:15] LABS: Albumin 2.9 g/dL (2.9-4.4); Alpha 1 0.2 g/dL (0.0-0.4); Beta 0.9 g/dL (0.7-1.3); Gamma 0.8 g/dL (0.4-1.8); Globulin, Total 2.9 g/dL (2.2-3.9); M-Spike Not Observed g/dL (Not Observed)
[2020-09-14] MEDS ORDERED: TRULICITY 0.75 MG/0.5 ML SC SCH (09:00)
== END 2020-09-10 17:00 | disposition home or self-care (01) ==
LOC: NAV ACUTE 17:00
PROVIDERS: ADMIT Family Medicine; ATTEND Family Medicine
PROC: 30233N1 Transfusion of Nonautologous Red Blood Cells into Peripheral Vein, Percutaneous Approach (ICD-10-PCS; principal; 2020-09-09)
DX: D64.9 Anemia, unspecified (principal); Z79.02 Long term (current) use of antithrombotics/antiplatelets; Z79.84 Long term (current) use of oral hypoglycemic drugs; Z79.899 Other long term (current) drug therapy; Z88.0 Allergy status to penicillin; Z88.8 Allergy status to other drugs, medicaments and biological substances; Z20.822 Contact with and (suspected) exposure to COVID-19
CPT/HCPCS: 36415; 36430; 82274; 82607; 82728; 82746; 84165; 85025; 86850; 86900; 86901; 87635; 94640; J7620; P9016; U0003

== ENCOUNTER 2020-09-26 09:06 | Outpatient (CLI) | payer MEDICARE, BC ==
[~2020-09-26 09:06] MED LIST: Iopamidol 370 76% 100 ML VIAL ONE
--- NOTE | 2020-09-26 10:38 | CT ---
CT ABDOMEN WITH CONTRAST CT PELVIS WITH CONTRAST: DATE: 09/26/2020 HISTORY: 80-year-old male with anemia. COMPARISON: CT abdomen and pelvis of 07/15/2020. CT angiogram chest of 07/24/2020. TECHNIQUE: IV injection of iodinated contrast media: Administered. Oral contrast media: Administered. FINDINGS: Review of CT angiogram of the chest of 07/24/2020 demonstrates that there are 12 fully formed paired ribs, followed by a level with bilateral tiny accessory ribs, which will be designated as L1. That is followed by additional levels that will be designated as L2 through L5, which is then followed by a transitional level at the lumbosacral junction, which will be designated as L6 for the purposes of th is report. There is a compression fracture of L3, which is new since 07/15/2020. The depression of the superior end plate appears deeper than on the plain radiograph of 09/08/2020. Current maximum central depressi on loss of eight is approximately 20-40%. There has developed sclerosis of the depressed superior end plate. There is minimal bony retropulsion of the superior portion of the upper end plate which quali fies this as a burst fracture. There is a mild Grade I anterolisthesis of L5 on L6 due to bilateral facet DJD. There is associated s evere right neural foraminal stenosis at L5-6. There is severe disc space narrowing and vacuum disc p henomenon at L5-6. The L6-S1 intervertebral disc space is partially developed. The L6 alae are fused with the bilateral S1 sacral alae. There is a mild, approximately 10-20% compression fracture of T12 of indeterminate age. No consolidation or pleural effusion at lung bases. No small bowel dilation, ascites, pneumoperitoneum, or colonic diverticulitis. Multiple descending and sigmoid colonic diverticulosis. Atherosclerotic calcification of abdominal aorta and its branches, some heavy calcification. 3 mm left renal upper pole calculus. 7 x 4 x 8 mm calculus at a left renal lower pole calyx. No evidence of renal neoplasm. Liver, adrenals, pancreas, and spleen are normal. Enlarged prostate indents the bladder base. No other bladder abnormality identified. Appendix is normal. Clips in gallbladder fossa. No evidence of grace hepatis, mesenteric, retroperitoneal, or iliac chain lymphadenopathy. No destructive osseous lesion identified. IMPRESSION: 1. Nephrolithiasis consisting of at least two left renal calculi. 2. Interval progression of subacute compression/burst fracture of L3. 3. Transitional vertebrae at thoracolumbar junction and lumbosacral junction. 4. Lumbar spondylosis. 5. Evidence for benign prostatic hyperplasia (BPH). This does not necessarily rule out the presence of any concomitant prostate cancer. 6. Otherwise, no overt evidence of malignancy. JNR POS: [facility]
--- NOTE | 2020-09-26 10:39 | CT ---
CT of the lumbar spine: 09/26/2020 COMPARISON: CT abdomen pelvis 07/15/2020 HISTORY: Back pain TECHNIQUE: Axial CT imaging at 2.5 mm intervals through the lumbar spine without contrast. Coronal an d sagittal reformatted imaging obtained. FINDINGS: Evaluation for central canal and/or neural foraminal stenosis is limited on routine CT exam ination. There is scattered atherosclerotic calcification of the abdominal aorta and its branches, better assessed on dedicated CT of the abdomen pelvis also performed 09/26/2018. Subcentimeter stone n oted in the left kidney, only partially imaged. Linear calcification within the lumen of the infrarenal abdominal aorta noted laterally on the left suggesting calcification of atherosclerotic pl aque when compared to CT angiogram performed 10/14/2012. The bones appear diffusely demineralized. T12-L1: No osseous cause of significant central canal or neural foraminal stenosis. L1-2: Bilateral facet hypertrophy and hypertrophy of the ligamentum flavum. Disc bulge with left fora rose disc protrusion. Moderate left neural foraminal stenosis and mild right neural foraminal stenosis. Mild/moderate central canal stenosis. There is new fracture involving the superior endplate of the L2 vertebral body demonstrating a burst configuration given mild posterior retropulsion leading to a mild degree of central canal stenosis in the region of the superior endplate. The degree of vertebral body height loss centrally at the L2 level is estimated at 30%. L2-3: There is bilateral facet hypertrophy and hypertrophy of the ligamentum flavum with disc bulge c ausing moderate central canal stenosis. Bilateral facet hypertrophy causes mild right and moderate left neural foraminal stenosis. L3-4: Bilateral facet hypertrophy and hypertrophy of the ligamentum flavum noted. Moderate bilateral neural foraminal stenosis and moderate central canal stenosis. L4-5: There is disc space narrowing with vacuum disc formation. Bilateral facet hypertrophy noted wit h moderate left and severe right neural foraminal stenosis. No significant central canal stenosis. Bilateral laminectomy changes. L5-S1: There is disc space narrowing and mild bilateral facet hypertrophy with no central canal or ne ural foraminal stenosis. IMPRESSION: Burst fracture of L2 with mild osseous retropulsion and mild associated central canal josh nosis. Loss of vertebral body height is estimated at 30% centrally. Multilevel degenerative change within the lumbar spine. Results sent to Dr. Nieto via [employer] 10:35 AM 09/26/2020
== END 2020-09-26 09:07 | disposition home or self-care (01) ==
LOC: NAV CT 09:06
PROVIDERS: ATTEND Internal Medicine Gastroenterology
DX: M51.37 Other intervertebral disc degeneration, lumbosacral region (principal); S32.021A Stable burst fracture of second lumbar vertebra, initial encounter for closed fracture; M48.061 Spinal stenosis, lumbar region without neurogenic claudication; M47.816 Spondylosis without myelopathy or radiculopathy, lumbar region; N20.0 Calculus of kidney; S32.031A Stable burst fracture of third lumbar vertebra, initial encounter for closed fracture; N40.0 Benign prostatic hyperplasia without lower urinary tract symptoms
CPT/HCPCS: 72131; 74177; Q9967

== ENCOUNTER 2020-10-13 13:14 | Outpatient (CLI) | payer MEDICARE, BC ==
--- NOTE | 2020-10-13 14:28 | RAD ---
Exam: 3 views thoracic spine HISTORY: Compression fracture of the first lumbar vertebra. FINDINGS: AP, lateral, spot lumbosacral junction demonstrate diffuse bone demineralization. There ap pears be mild loss of vertebral body height at the T12 level. Interval evaluated fusion of the distal cervical and upper thoracic spine. Multiple old right rib fractures. Atherosclerosis of the aorta is identified IMPRESSION: Findings suggesting a distal thoracic spine fracture at T12, incompletely evaluated. Ther e is mild loss of vertebral body height. Correlation made with a abdomen pelvis CT 09/26/2019 demonstrates stable loss of vertebral body height. Transcribed Date/Time: 10/13/2020 2:39 PM
--- NOTE | 2020-10-13 15:22 | RAD ---
RADIOGRAPH LUMBAR SPINE 3 VIEWS: DATE: 10/13/2020 HISTORY: 80-year-old male with low back pain and "closed compression fracture first lumbar vertebra" COMPARISON: 09/08/2020 FINDINGS: Review of CT angiogram of the chest of 07/24/2020 demonstrates 12 fully formed paired ribs. The vertebra directly caudal to that has bilaterally small ribs, which will be designated as L1 with bilateral accessory ribs, for the purposes of this report. Consequently, the transitional level at the lumbosacral junction will be designated as L6, with compl ete broad fusion of the bilateral L6 dysplastic transverse processes with the bilateral sacral alae. This designation of levels is different from that used for the CT of 09/26/2020. There is diffuse severe osteopenia. There is broad moderate depression of the superior endplate of L3 with sclerosis of the superior depr essed endplate. Mild bony retropulsion of posterior superior endplate is consistent with burst fracture. Loss of height is approximately 30%, worse than on 09/08/2020, but unchanged since 09/26/2020. T12 is very poorly visualized on the lateral view. There is a grade 1 anterolisthesis of L5 on L6. There is severe disc space narrowing at L5-6. There is high-grade facet DJD at multiple levels of mid and lower lumbar spine. IMPRESSION: 1) transitional levels at thoracolumbar junction and lumbosacral junction. 2) this includes lumbosacral transitional vertebra type IIIB involving L6/S1. 3) subacute burst fracture of L3, worse since 09/08/2020, but unchanged since 09/26/2020. 4) grade 1 spondylolisthesis due to severe facet osteoarthrosis at L5-6. 5) high-grade degenerative disc disease at L5-6.
== END 2020-10-13 13:15 | disposition home or self-care (01) ==
LOC: NAV RAD 13:14
PROVIDERS: ATTEND Neurological Surgery
DX: M48.56XA Collapsed vertebra, not elsewhere classified, lumbar region, initial encounter for fracture (principal); S32.031D Stable burst fracture of third lumbar vertebra, subsequent encounter for fracture with routine healing; M51.36 Other intervertebral disc degeneration, lumbar region
CPT/HCPCS: 72072; 72100

== ENCOUNTER 2020-11-07 11:49 | Outpatient (CLI) | payer MEDICARE, BC | END 2020-11-07 11:50 | disposition home or self-care (01) | LOC: NAV RAD 11:49 | DX: M48.56XA Collapsed vertebra, not elsewhere classified, lumbar region, initial encounter for fracture (principal) | CPT/HCPCS: 72100 ==

== ENCOUNTER 2020-12-08 09:56 | Outpatient (CLI) | payer MEDICARE, BC | END 2020-12-08 09:57 | disposition home or self-care (01) | LOC: NAV RAD 09:56 | PROVIDERS: ATTEND Neurological Surgery | DX: M48.56XA Collapsed vertebra, not elsewhere classified, lumbar region, initial encounter for fracture (principal); S32.029A Unspecified fracture of second lumbar vertebra, initial encounter for closed fracture; M81.0 Age-related osteoporosis without current pathological fracture | CPT/HCPCS: 72070; 72100 ==

== ENCOUNTER 2022-03-14 08:34 | Outpatient (CLI) | payer MEDICARE, BC ==
[2022-03-14] MEDS ORDERED: Iopamidol 370 76% 100 ML VIAL ONE (09:00)
== END 2022-03-14 08:35 | disposition home or self-care (01) ==
LOC: NAV CT 08:34
PROVIDERS: ATTEND Internal Medicine Critical Care Medicine
DX: Z01.818 Encounter for other preprocedural examination (principal); R91.8 Other nonspecific abnormal finding of lung field
CPT/HCPCS: 36415; 71260; 82565; Q9967

== ENCOUNTER 2022-05-20 13:19 | Emergency (ER) | payer MEDICARE, BC ==
[2022-05-20 13:56] LABS: #Basophils 0.1 thou/uL (0.0-0.2); #Lymphocytes 1.6 thou/uL (1.20-3.40); #Monocytes 0.7 thou/uL (0.11-0.59); #Neutrophils 4.4 thou/uL (1.40-6.50); %Basophils 0.8 % (0.0-1.0); %Eosinophils 0.1 % (0.0-10.0); %Lymphocytes 23.7 % (21.0-51.0); %Monocytes 9.8 % (0.0-10.0); %Neutrophils 65.5 % (42.0-75.0); Hemoglobin 12.2 g/dL (14.0-18.0); Mean Corpuscular HGB CONC 31.2 g/dL (32.0-36.0); Mean Corpuscular Hemoglobin 28.3 pg (27.0-31.0); Mean Corpuscular Volume 90.7 fL (78.0-98.0); Mean Platelet Volume 8.6 fL (7.4-10.4); Platelet Count 313 thou/uL (130-400); RBC Distribution Width 12.8 % (11.5-14.5); Red Blood Cell (RBC) Count 4.32 mill/uL (4.70-6.10); White Blood Cell (WBC) Count 6.7 thou/uL (4.8-10.8)
[2022-05-20 14:20] LABS: ALT (SGPT) 13 U/L (8-55); AST (SGOT) 13 U/L (5-34); Alkaline Phosphatase 108 U/L (40-110); Anion Gap 17 mmol/L (10-20); BUN (Urea Nitrogen) 35 mg/dL (8.4-25.7); Bilirubin, Total 0.3 mg/dL (0.2-1.2); Calc. Creatinine Clearance 0 mL/min (70-130); Calcium 9.8 mg/dL (7.8-10.44); Carbon Dioxide 29 mmol/L (23-31); Chloride 101 mmol/L (98-107); Estimated GFR 69; Globulin 2.8 g/dL (2.4-3.5); Glucose 146 mg/dL (83-110); Potassium 3.4 mmol/L (3.5-5.1); Protein, Total 6.8 g/dL (5.8-8.1); Sodium 144 mmol/L (136-145)
[2022-05-20 14:37] LABS: Bilirubin Negative (Negative); Blood, Urine Small (Negative); Clarity Clear (Clear); Glucose, Urine (Dipstick) Negative (Negative); Ketone, Urine Negative (Negative); Leukocyte Negative (Negative); Nitrite Negative (Negative); Protein, Urine (Dipstick) Negative (Neg-Trace); Urobilinogen 0.2 mg/dL (Less than 2); pH, Urine 5.5 (5.0-9.0)
[2022-05-20 14:45] LABS: Bacteria/HPF None Seen HPF (None Seen); Squamous Epithelial 0-3 HPF (0-3); WBC/HPF 0-3 HPF (0-3)
[2022-05-20 14:46] LABS: Mucous/LPF 1+ LPF (<2+); Renal Epithelial 0-3 HPF (None Seen)
[2022-05-20 15:02] LABS: CKMB 1.2 ng/mL (0-6.6)
[2022-05-20] MEDS ORDERED: Pot Chloride/Pot Bicarb/Cit Ac 25 mEq Effervescent Tablet ONE (16:15)
== END 2022-05-20 16:32 | disposition home or self-care (01) ==
LOC: NAV ERS 13:19
DX: E86.0 Dehydration (principal); E87.6 Hypokalemia; D50.9 Iron deficiency anemia, unspecified; E78.5 Hyperlipidemia, unspecified; J44.9 Chronic obstructive pulmonary disease, unspecified; E11.9 Type 2 diabetes mellitus without complications; Z79.899 Other long term (current) drug therapy
CPT/HCPCS: 36416; 71045; 80053; 81003; 81015; 82553; 83880; 84443; 84484; 85025; 93005; 96360; 96361

== ENCOUNTER 2022-06-27 14:00 | Outpatient (CLI) | payer MEDICARE, BC | END 2022-06-27 14:01 | disposition home or self-care (01) | LOC: NAV RAD 14:00 | PROVIDERS: ATTEND Neurological Surgery | DX: S22.009D Unspecified fracture of unspecified thoracic vertebra, subsequent encounter for fracture with routine healing (principal); M43.9 Deforming dorsopathy, unspecified | CPT/HCPCS: 72072 ==

== ENCOUNTER 2022-08-06 13:50 | Emergency (ER) | payer MEDICARE, BC ==
[2022-08-06 14:20] LABS: #Basophils 0.1 thou/uL (0.0-0.2); #Lymphocytes 1.9 thou/uL (1.20-3.40); #Monocytes 0.7 thou/uL (0.11-0.59); %Basophils 0.8 % (0.0-1.0); %Eosinophils 0.1 % (0.0-10.0); %Lymphocytes 21.9 % (21.0-51.0); %Monocytes 7.7 % (0.0-10.0); %Neutrophils 69.5 % (42.0-75.0); Hemoglobin 13.3 g/dL (14.0-18.0); Mean Corpuscular HGB CONC 31.6 g/dL (32.0-36.0); Mean Corpuscular Hemoglobin 28.5 pg (27.0-31.0); Mean Corpuscular Volume 90.2 fl (78.0-98.0); Mean Platelet Volume 8.7 fL (7.4-10.4); Platelet Count 282 10x3/uL (130-400); RBC Distribution Width 13.1 % (11.5-14.5); Red Blood Cell (RBC) Count 4.65 mill/uL (4.70-6.10); White Blood Cell (WBC) Count 8.6 10x3/uL (4.8-10.8)
[2022-08-06 14:42] LABS: ALT (SGPT) 14 U/L (8-55); AST (SGOT) 13 U/L (5-34); Albumin 4.1 g/dL (3.4-4.8); Alkaline Phosphatase 100 U/L (40-110); Anion Gap 13 mmol/L (10-20); BUN (Urea Nitrogen) 24 mg/dL (8.4-25.7); Bilirubin, Total 0.4 mg/dL (0.2-1.2); Calc. Creatinine Clearance 0 mL/min (70-130); Calcium 10.5 mg/dL (7.8-10.44); Carbon Dioxide 28 mmol/L (23-31); Chloride 101 mmol/L (98-107); Estimated GFR 84; Globulin 2.9 g/dL (2.4-3.5); Glucose 147 mg/dL (83-110); Potassium 4.1 mmol/L (3.5-5.1); Sodium 138 mmol/L (136-145)
[2022-08-06] MEDS ORDERED: Morphine 2 MG/ML VIAL ONE ×2 (14:42→19:08)
[2022-08-06 15:41] LABS: SARS-CoV-2 NAA Rapid Test Not Detected (NotDetected)
[2022-08-06] MEDS ORDERED: Dextrose 5 %-0.45 % NaCl 1,000 ML ONE (17:36)
[2022-08-07] MEDS ORDERED: Morphine 4 MG/ML VIAL SLOW IVP PRN (02:04)
[2022-08-07] MEDS ORDERED: Dextrose 5 %-0.45 % NaCl 1,000 ML IV SCH (02:15)
[2022-08-07] MEDS ORDERED: Ondansetron PF 4 MG/2 ML Vial IVP PRN (02:15)
[2022-08-07] MEDS ORDERED: Ondansetron ODT 4 MG TAB SL PRN (02:15)
== END 2022-08-06 22:34 | disposition short-term general hospital (02) ==
LOC: NAV ERS 13:50
DX: S72.111A Displaced fracture of greater trochanter of right femur, initial encounter for closed fracture (principal); E78.5 Hyperlipidemia, unspecified; E11.9 Type 2 diabetes mellitus without complications; J44.9 Chronic obstructive pulmonary disease, unspecified; Z20.822 Contact with and (suspected) exposure to COVID-19; Z79.84 Long term (current) use of oral hypoglycemic drugs; Z79.02 Long term (current) use of antithrombotics/antiplatelets; Z79.899 Other long term (current) drug therapy; Z87.891 Personal history of nicotine dependence; W19.XXXA Unspecified fall, initial encounter
CPT/HCPCS: 36416; 71045; 72170; 80053; 85025; 93005; 96374; J2270; J7042; U0002

== ENCOUNTER 2022-08-09 08:59 | Inpatient (IN) | payer MEDICARE, BC ==
[2022-08-09] MEDS ORDERED: Acetaminophen/Codeine 30-300mg Tablet PO PRN (14:51)
[2022-08-09] MEDS ORDERED: Cyclobenzaprine 10 MG TAB PO PRN (14:57)
[2022-08-09] MEDS ORDERED: Dextrose 50% Abboject 50 ML SYRINGE SLOW IVP PRN (15:04)
[2022-08-09] MEDS ORDERED: Ondansetron ODT 4 MG TAB SL PRN (15:05)
[2022-08-09] MEDS ORDERED: Senokot S 8.6-50 MG TAB PO PRN (15:05)
[2022-08-09] MEDS ORDERED: Bisacodyl 5 MG TAB PO PRN (15:05)
[2022-08-09] MEDS ORDERED: HumaLOG 300 UNITS/3 ML VIAL SC PRN (15:05)
[2022-08-09] MEDS ORDERED: Ibuprofen 400 MG TAB PO PRN (15:31)
[2022-08-09] MEDS: Acetaminophen 325 MG TAB PO SCH (18:37)
[2022-08-09] MEDS: Tamsulosin HCl 0.4 MG CAP PO SCH (21:03)
[2022-08-09] MEDS: Atorvastatin Calcium 20 MG TAB PO SCH (21:03)
[2022-08-10] MEDS: Acetaminophen 325 MG TAB PO SCH ×4 (00:02→18:09)
[2022-08-10 05:50] LABS: #Basophils 0.1 thou/uL (0.0-0.2); #Eosinphils 0.1 thou/uL (0.0-0.7); #Lymphocytes 2.2 thou/uL (1.20-3.40); #Monocytes 1.1 thou/uL (0.11-0.59); #Neutrophils 5.6 thou/uL (1.40-6.50); %Basophils 0.8 % (0.0-1.0); %Eosinophils 0.8 % (0.0-10.0); %Monocytes 12.6 % (0.0-10.0); %Neutrophils 61.8 % (42.0-75.0); Hemoglobin 13.8 g/dL (14.0-18.0); Mean Corpuscular HGB CONC 31.6 g/dL (32.0-36.0); Mean Corpuscular Hemoglobin 28.3 pg (27.0-31.0); Mean Corpuscular Volume 89.4 fl (78.0-98.0); Mean Platelet Volume 8.7 fL (7.4-10.4); Platelet Count 275 10x3/uL (130-400); RBC Distribution Width 13.3 % (11.5-14.5); Red Blood Cell (RBC) Count 4.89 mill/uL (4.70-6.10); White Blood Cell (WBC) Count 9.1 10x3/uL (4.8-10.8)
[2022-08-10 06:01] LABS: Sodium 137 mmol/L (136-145)
[2022-08-10 06:08] LABS: ALT (SGPT) 12 U/L (8-55); AST (SGOT) 11 U/L (5-34); Albumin 3.8 g/dL (3.4-4.8); Alkaline Phosphatase 88 U/L (40-110); Anion Gap 15 mmol/L (10-20); BUN (Urea Nitrogen) 24 mg/dL (8.4-25.7); Bilirubin, Total 0.5 mg/dL (0.2-1.2); Calc. Creatinine Clearance 56 mL/min (70-130); Calcium 10.3 mg/dL (7.8-10.44); Carbon Dioxide 25 mmol/L (23-31); Chloride 101 mmol/L (98-107); Estimated GFR 75; Globulin 3.2 g/dL (2.4-3.5); Glucose 158 mg/dL (83-110)
[2022-08-10] MEDS: Teriparatide [Forteo] 2.4 ML Pen.Injctr SC SCH (09:00)
[2022-08-10] MEDS ORDERED: Teriparatide [Forteo] 2.4 ML Pen.Injctr SC SCH (09:00)
[2022-08-10] MEDS: Clopidogrel Bisulfate 75 MG TAB PO SCH (09:02)
[2022-08-10] MEDS: Cholecalciferol 1,000 UNITS (25 MCG) TAB PO SCH (09:02)
[2022-08-10] MEDS: Tamsulosin HCl 0.4 MG CAP PO SCH ×2 (09:02→20:47)
[2022-08-10] MEDS: Multivitamin W/ Minerals 1 TAB PO SCH (09:03)
[2022-08-10] MEDS: Ferrous Sulfate 325 MG TAB PO SCH (09:03)
[2022-08-10] MEDS: Potassium Chloride 20 MEQ TAB PO SCH (09:05)
[2022-08-10] MEDS: CAL MAG ZINC PO SCH (09:46)
[2022-08-10] MEDS: Pioglitazone HCl 15 MG TAB PO SCH (09:47)
[2022-08-10] MEDS: metFORMIN XR 500 MG TAB PO SCH ×2 (12:47→18:05)
[2022-08-10] MEDS: Atorvastatin Calcium 20 MG TAB PO SCH (20:47)
[2022-08-11] MEDS: Acetaminophen 325 MG TAB PO SCH ×5 (00:02→23:19)
[2022-08-11] MEDS: Ferrous Sulfate 325 MG TAB PO SCH (09:02)
[2022-08-11] MEDS: Potassium Chloride 20 MEQ TAB PO SCH (09:03)
[2022-08-11] MEDS: Multivitamin W/ Minerals 1 TAB PO SCH (09:03)
[2022-08-11] MEDS: Cholecalciferol 1,000 UNITS (25 MCG) TAB PO SCH (09:04)
[2022-08-11] MEDS: Tamsulosin HCl 0.4 MG CAP PO SCH ×2 (09:04→21:11)
[2022-08-11] MEDS: Pioglitazone HCl 15 MG TAB PO SCH (09:04)
[2022-08-11] MEDS: Clopidogrel Bisulfate 75 MG TAB PO SCH (09:04)
[2022-08-11] MEDS: CAL MAG ZINC PO SCH (09:08)
[2022-08-11] MEDS: metFORMIN XR 500 MG TAB PO SCH ×2 (09:10→17:34)
[2022-08-11] MEDS: Teriparatide [Forteo] 2.4 ML Pen.Injctr SC SCH (09:11)
[2022-08-11] MEDS: ANORO ELLIPTA INHALATION INH SCH (09:16)
[2022-08-11] MEDS: HumaLOG 300 UNITS/3 ML VIAL SC PRN (12:44)
[2022-08-11] MEDS: Atorvastatin Calcium 20 MG TAB PO SCH (21:11)
[2022-08-12] MEDS: Acetaminophen 325 MG TAB PO SCH ×3 (05:35→17:00)
[2022-08-12] MEDS: Clopidogrel Bisulfate 75 MG TAB PO SCH (07:27)
[2022-08-12] MEDS: Multivitamin W/ Minerals 1 TAB PO SCH (07:27)
[2022-08-12] MEDS: Cholecalciferol 1,000 UNITS (25 MCG) TAB PO SCH (07:27)
[2022-08-12] MEDS: Pioglitazone HCl 15 MG TAB PO SCH (07:28)
[2022-08-12] MEDS: Potassium Chloride 20 MEQ TAB PO SCH (07:28)
[2022-08-12] MEDS: Ferrous Sulfate 325 MG TAB PO SCH (07:28)
[2022-08-12] MEDS: Tamsulosin HCl 0.4 MG CAP PO SCH ×2 (07:28→22:00)
[2022-08-12] MEDS: metFORMIN XR 500 MG TAB PO SCH ×2 (07:32→17:00)
[2022-08-12] MEDS: ANORO ELLIPTA INHALATION INH SCH (07:34)
[2022-08-12] MEDS: CAL MAG ZINC PO SCH (07:34)
[2022-08-12] MEDS: Teriparatide [Forteo] 2.4 ML Pen.Injctr SC SCH (07:36)
[2022-08-12] MEDS: HumaLOG 300 UNITS/3 ML VIAL SC PRN (12:54)
[2022-08-12] MEDS: Atorvastatin Calcium 20 MG TAB PO SCH (22:00)
[2022-08-13] MEDS: Acetaminophen 325 MG TAB PO SCH ×4 (00:15→16:16)
[2022-08-13] MEDS: metFORMIN XR 500 MG TAB PO SCH ×2 (09:12→16:17)
[2022-08-13] MEDS: CAL MAG ZINC PO SCH (09:13)
[2022-08-13] MEDS: ANORO ELLIPTA INHALATION INH SCH (09:16)
[2022-08-13] MEDS: Cholecalciferol 1,000 UNITS (25 MCG) TAB PO SCH (09:17)
[2022-08-13] MEDS: Multivitamin W/ Minerals 1 TAB PO SCH (09:18)
[2022-08-13] MEDS: Potassium Chloride 20 MEQ TAB PO SCH (09:19)
[2022-08-13] MEDS: Ferrous Sulfate 325 MG TAB PO SCH (09:19)
[2022-08-13] MEDS: Clopidogrel Bisulfate 75 MG TAB PO SCH (09:19)
[2022-08-13] MEDS: Pioglitazone HCl 15 MG TAB PO SCH (09:19)
[2022-08-13] MEDS: Tamsulosin HCl 0.4 MG CAP PO SCH ×2 (09:20→20:45)
[2022-08-13] MEDS: Teriparatide [Forteo] 2.4 ML Pen.Injctr SC SCH (09:21)
[2022-08-13] MEDS: Atorvastatin Calcium 20 MG TAB PO SCH (20:45)
[2022-08-14] MEDS: Acetaminophen 325 MG TAB PO SCH ×5 (00:03→23:36)
[2022-08-14] MEDS: CAL MAG ZINC PO SCH (08:27)
[2022-08-14] MEDS: metFORMIN XR 500 MG TAB PO SCH ×2 (08:27→17:20)
[2022-08-14] MEDS: ANORO ELLIPTA INHALATION INH SCH (08:28)
[2022-08-14] MEDS: Tamsulosin HCl 0.4 MG CAP PO SCH ×2 (08:29→20:47)
[2022-08-14] MEDS: Cholecalciferol 1,000 UNITS (25 MCG) TAB PO SCH (08:29)
[2022-08-14] MEDS: Clopidogrel Bisulfate 75 MG TAB PO SCH (08:30)
[2022-08-14] MEDS: Ferrous Sulfate 325 MG TAB PO SCH (08:30)
[2022-08-14] MEDS: Potassium Chloride 20 MEQ TAB PO SCH (08:31)
[2022-08-14] MEDS: Multivitamin W/ Minerals 1 TAB PO SCH (08:31)
[2022-08-14] MEDS: Pioglitazone HCl 15 MG TAB PO SCH (08:31)
[2022-08-14] MEDS: Teriparatide [Forteo] 2.4 ML Pen.Injctr SC SCH (08:33)
[2022-08-14] MEDS: Atorvastatin Calcium 20 MG TAB PO SCH (20:47)
[2022-08-15] MEDS: Acetaminophen 325 MG TAB PO SCH ×4 (05:13→23:23)
[2022-08-15] MEDS: Cholecalciferol 1,000 UNITS (25 MCG) TAB PO SCH (09:13)
[2022-08-15] MEDS: Pioglitazone HCl 15 MG TAB PO SCH (09:14)
[2022-08-15] MEDS: Potassium Chloride 20 MEQ TAB PO SCH (09:15)
[2022-08-15] MEDS: Clopidogrel Bisulfate 75 MG TAB PO SCH (09:15)
[2022-08-15] MEDS: Multivitamin W/ Minerals 1 TAB PO SCH (09:15)
[2022-08-15] MEDS: Tamsulosin HCl 0.4 MG CAP PO SCH ×2 (09:15→20:48)
[2022-08-15] MEDS: metFORMIN XR 500 MG TAB PO SCH ×2 (09:16→17:11)
[2022-08-15] MEDS: Ferrous Sulfate 325 MG TAB PO SCH (09:16)
[2022-08-15] MEDS: Teriparatide [Forteo] 2.4 ML Pen.Injctr SC SCH (09:17)
[2022-08-15] MEDS: CAL MAG ZINC PO SCH (09:17)
[2022-08-15] MEDS: ANORO ELLIPTA INHALATION INH SCH (09:18)
[2022-08-15 13:56] VITALS: BMI 22.9
[2022-08-15] MEDS: Dulaglutide [Trulicity] 1.5 MG/0.5 ML Pen.Injctr SC SCH (18:00)
[2022-08-15] MEDS: Atorvastatin Calcium 20 MG TAB PO SCH (20:48)
[2022-08-16] MEDS: Acetaminophen 325 MG TAB PO SCH ×4 (05:32→23:31)
[2022-08-16] MEDS: Cholecalciferol 1,000 UNITS (25 MCG) TAB PO SCH (08:06)
[2022-08-16] MEDS: Multivitamin W/ Minerals 1 TAB PO SCH (08:06)
[2022-08-16] MEDS: Potassium Chloride 20 MEQ TAB PO SCH (08:06)
[2022-08-16] MEDS: Clopidogrel Bisulfate 75 MG TAB PO SCH (08:07)
[2022-08-16] MEDS: Ferrous Sulfate 325 MG TAB PO SCH (08:07)
[2022-08-16] MEDS: Pioglitazone HCl 15 MG TAB PO SCH (08:07)
[2022-08-16] MEDS: Tamsulosin HCl 0.4 MG CAP PO SCH ×2 (08:07→20:39)
[2022-08-16] MEDS: metFORMIN XR 500 MG TAB PO SCH ×2 (08:08→17:33)
[2022-08-16] MEDS: CAL MAG ZINC PO SCH (08:09)
[2022-08-16] MEDS: ANORO ELLIPTA INHALATION INH SCH (08:10)
[2022-08-16] MEDS: Teriparatide [Forteo] 2.4 ML Pen.Injctr SC SCH (08:22)
[2022-08-16] MEDS: Atorvastatin Calcium 20 MG TAB PO SCH (20:39)
[2022-08-17] MEDS: Acetaminophen 325 MG TAB PO SCH ×3 (05:53→17:47)
[2022-08-17] MEDS: Teriparatide [Forteo] 2.4 ML Pen.Injctr SC SCH (08:00)
[2022-08-17] MEDS: CAL MAG ZINC PO SCH (08:01)
[2022-08-17] MEDS: Ferrous Sulfate 325 MG TAB PO SCH (08:02)
[2022-08-17] MEDS: Cholecalciferol 1,000 UNITS (25 MCG) TAB PO SCH (08:02)
[2022-08-17] MEDS: Multivitamin W/ Minerals 1 TAB PO SCH (08:03)
[2022-08-17] MEDS: Clopidogrel Bisulfate 75 MG TAB PO SCH (08:03)
[2022-08-17] MEDS: Pioglitazone HCl 15 MG TAB PO SCH (08:03)
[2022-08-17] MEDS: Tamsulosin HCl 0.4 MG CAP PO SCH ×2 (08:03→21:35)
[2022-08-17] MEDS: Potassium Chloride 20 MEQ TAB PO SCH (08:36)
[2022-08-17] MEDS: ANORO ELLIPTA INHALATION INH SCH (09:02)
[2022-08-17] MEDS: metFORMIN XR 500 MG TAB PO SCH ×2 (09:03→17:48)
[2022-08-17] MEDS ORDERED: Ibuprofen 200 MG TAB PO PRN (14:15)
[2022-08-17] MEDS: HumaLOG 300 UNITS/3 ML VIAL SC PRN (17:52)
[2022-08-17] MEDS: Atorvastatin Calcium 20 MG TAB PO SCH (21:35)
[2022-08-18] MEDS: Acetaminophen 325 MG TAB PO SCH ×5 (00:35→23:55)
[2022-08-18] MEDS: Potassium Chloride 20 MEQ TAB PO SCH (08:57)
[2022-08-18] MEDS: Multivitamin W/ Minerals 1 TAB PO SCH (08:57)
[2022-08-18] MEDS: Cholecalciferol 1,000 UNITS (25 MCG) TAB PO SCH (08:58)
[2022-08-18] MEDS: Pioglitazone HCl 15 MG TAB PO SCH (08:59)
[2022-08-18] MEDS: Clopidogrel Bisulfate 75 MG TAB PO SCH (08:59)
[2022-08-18] MEDS: Ferrous Sulfate 325 MG TAB PO SCH (08:59)
[2022-08-18] MEDS: Tamsulosin HCl 0.4 MG CAP PO SCH ×2 (08:59→20:36)
[2022-08-18] MEDS: ANORO ELLIPTA INHALATION INH SCH (09:01)
[2022-08-18] MEDS: CAL MAG ZINC PO SCH (09:02)
[2022-08-18] MEDS: metFORMIN XR 500 MG TAB PO SCH ×2 (09:02→16:58)
[2022-08-18] MEDS: Teriparatide [Forteo] 2.4 ML Pen.Injctr SC SCH (09:07)
[2022-08-18] MEDS: Atorvastatin Calcium 20 MG TAB PO SCH (20:36)
[2022-08-19] MEDS: Acetaminophen 325 MG TAB PO SCH ×4 (05:44→23:48)
[2022-08-19] MEDS: ANORO ELLIPTA INHALATION INH SCH (08:34)
[2022-08-19] MEDS: Tamsulosin HCl 0.4 MG CAP PO SCH ×2 (08:35→21:00)
[2022-08-19] MEDS: Potassium Chloride 20 MEQ TAB PO SCH (08:35)
[2022-08-19] MEDS: Cholecalciferol 1,000 UNITS (25 MCG) TAB PO SCH (08:36)
[2022-08-19] MEDS: Multivitamin W/ Minerals 1 TAB PO SCH (08:36)
[2022-08-19] MEDS: Clopidogrel Bisulfate 75 MG TAB PO SCH (08:37)
[2022-08-19] MEDS: Ferrous Sulfate 325 MG TAB PO SCH (08:37)
[2022-08-19] MEDS: Pioglitazone HCl 15 MG TAB PO SCH (08:37)
[2022-08-19] MEDS: CAL MAG ZINC PO SCH (08:38)
[2022-08-19] MEDS: metFORMIN XR 500 MG TAB PO SCH ×2 (08:38→16:41)
[2022-08-19] MEDS: Teriparatide [Forteo] 2.4 ML Pen.Injctr SC SCH (08:39)
[2022-08-19] MEDS: HumaLOG 300 UNITS/3 ML VIAL SC PRN ×2 (11:27→16:41)
[2022-08-19] MEDS: Atorvastatin Calcium 20 MG TAB PO SCH (21:00)
[2022-08-20] MEDS: Acetaminophen 325 MG TAB PO SCH ×4 (05:33→23:57)
[2022-08-20] MEDS: ANORO ELLIPTA INHALATION INH SCH (09:03)
[2022-08-20] MEDS: CAL MAG ZINC PO SCH (09:05)
[2022-08-20] MEDS: metFORMIN XR 500 MG TAB PO SCH ×2 (09:06→17:57)
[2022-08-20] MEDS: Multivitamin W/ Minerals 1 TAB PO SCH (09:08)
[2022-08-20] MEDS: Cholecalciferol 1,000 UNITS (25 MCG) TAB PO SCH (09:08)
[2022-08-20] MEDS: Clopidogrel Bisulfate 75 MG TAB PO SCH (09:08)
[2022-08-20] MEDS: Tamsulosin HCl 0.4 MG CAP PO SCH ×2 (09:08→20:36)
[2022-08-20] MEDS: Potassium Chloride 20 MEQ TAB PO SCH (09:08)
[2022-08-20] MEDS: Pioglitazone HCl 15 MG TAB PO SCH (09:09)
[2022-08-20] MEDS: Ferrous Sulfate 325 MG TAB PO SCH (09:09)
[2022-08-20] MEDS: Teriparatide [Forteo] 2.4 ML Pen.Injctr SC SCH (10:09)
[2022-08-20] MEDS ORDERED: Acetaminophen 325 MG TAB ONE (17:14)
[2022-08-20] MEDS: Atorvastatin Calcium 20 MG TAB PO SCH (20:36)
[2022-08-21] MEDS: Acetaminophen 325 MG TAB PO SCH ×3 (05:21→17:18)
[2022-08-21] MEDS: metFORMIN XR 500 MG TAB PO SCH ×2 (08:44→17:18)
[2022-08-21] MEDS: CAL MAG ZINC PO SCH (08:45)
[2022-08-21] MEDS: ANORO ELLIPTA INHALATION INH SCH (08:45)
[2022-08-21] MEDS: Multivitamin W/ Minerals 1 TAB PO SCH (08:46)
[2022-08-21] MEDS: Potassium Chloride 20 MEQ TAB PO SCH (08:46)
[2022-08-21] MEDS: Cholecalciferol 1,000 UNITS (25 MCG) TAB PO SCH (08:46)
[2022-08-21] MEDS: Tamsulosin HCl 0.4 MG CAP PO SCH ×2 (08:47→21:09)
[2022-08-21] MEDS: Pioglitazone HCl 15 MG TAB PO SCH (08:47)
[2022-08-21] MEDS: Clopidogrel Bisulfate 75 MG TAB PO SCH (08:47)
[2022-08-21] MEDS: Ferrous Sulfate 325 MG TAB PO SCH (08:47)
[2022-08-21] MEDS: Teriparatide [Forteo] 2.4 ML Pen.Injctr SC SCH (11:46)
[2022-08-21] MEDS: Atorvastatin Calcium 20 MG TAB PO SCH (21:09)
[2022-08-22] MEDS: Acetaminophen 325 MG TAB PO SCH ×4 (00:22→17:34)
[2022-08-22] MEDS: metFORMIN XR 500 MG TAB PO SCH ×2 (09:34→17:33)
[2022-08-22] MEDS: CAL MAG ZINC PO SCH (09:35)
[2022-08-22] MEDS: ANORO ELLIPTA INHALATION INH SCH (09:35)
[2022-08-22] MEDS: Ferrous Sulfate 325 MG TAB PO SCH (09:36)
[2022-08-22] MEDS: Tamsulosin HCl 0.4 MG CAP PO SCH ×2 (09:36→21:04)
[2022-08-22] MEDS: Clopidogrel Bisulfate 75 MG TAB PO SCH (09:36)
[2022-08-22] MEDS: Cholecalciferol 1,000 UNITS (25 MCG) TAB PO SCH (09:36)
[2022-08-22] MEDS: Pioglitazone HCl 15 MG TAB PO SCH (09:36)
[2022-08-22] MEDS: Multivitamin W/ Minerals 1 TAB PO SCH (09:37)
[2022-08-22] MEDS: Potassium Chloride 20 MEQ TAB PO SCH (09:37)
[2022-08-22] MEDS: Teriparatide [Forteo] 2.4 ML Pen.Injctr SC SCH (09:38)
[2022-08-22] MEDS: HumaLOG 300 UNITS/3 ML VIAL SC PRN (17:34)
[2022-08-22] MEDS: Dulaglutide [Trulicity] 1.5 MG/0.5 ML Pen.Injctr SC SCH (17:35)
[2022-08-22] MEDS: Atorvastatin Calcium 20 MG TAB PO SCH (21:04)
[2022-08-23] MEDS: Acetaminophen 325 MG TAB PO SCH ×3 (00:06→12:36)
[2022-08-23 06:23] LABS: #Eosinphils 0.1 thou/uL (0.0-0.7); #Lymphocytes 1.7 thou/uL (1.20-3.40); #Monocytes 0.7 thou/uL (0.11-0.59); #Neutrophils 3.5 thou/uL (1.40-6.50); %Basophils 0.7 % (0.0-1.0); %Eosinophils 1.1 % (0.0-10.0); %Monocytes 11.3 % (0.0-10.0); %Neutrophils 57.9 % (42.0-75.0); Hemoglobin 12.3 g/dL (14.0-18.0); Mean Corpuscular HGB CONC 32.6 g/dL (32.0-36.0); Mean Corpuscular Hemoglobin 28.4 pg (27.0-31.0); Mean Corpuscular Volume 87.2 fl (78.0-98.0); Mean Platelet Volume 7.8 fL (7.4-10.4); Platelet Count 307 10x3/uL (130-400); RBC Distribution Width 12.8 % (11.5-14.5); Red Blood Cell (RBC) Count 4.34 mill/uL (4.70-6.10)
[2022-08-23 06:34] LABS: Anion Gap 12 mmol/L (10-20); BUN (Urea Nitrogen) 26 mg/dL (8.4-25.7); Calc. Creatinine Clearance 65 mL/min (70-130); Calcium 10.4 mg/dL (7.8-10.44); Chloride 103 mmol/L (98-107); Estimated GFR 85; Glucose 114 mg/dL (83-110); Potassium 3.8 mmol/L (3.5-5.1)
[2022-08-23 07:04] LABS: Sodium 137 mmol/L (136-145)
[2022-08-23 07:05] LABS: Carbon Dioxide 26 mmol/L (23-31)
[2022-08-23] MEDS: Tamsulosin HCl 0.4 MG CAP PO SCH (08:57)
[2022-08-23] MEDS: Cholecalciferol 1,000 UNITS (25 MCG) TAB PO SCH (08:57)
[2022-08-23] MEDS: Pioglitazone HCl 15 MG TAB PO SCH (08:58)
[2022-08-23] MEDS: metFORMIN XR 500 MG TAB PO SCH (08:59)
[2022-08-23] MEDS: Ferrous Sulfate 325 MG TAB PO SCH (08:59)
[2022-08-23] MEDS: Potassium Chloride 20 MEQ TAB PO SCH (08:59)
[2022-08-23] MEDS: Multivitamin W/ Minerals 1 TAB PO SCH (08:59)
[2022-08-23] MEDS: Clopidogrel Bisulfate 75 MG TAB PO SCH (08:59)
[2022-08-23] MEDS: CAL MAG ZINC PO SCH (09:00)
[2022-08-23] MEDS: ANORO ELLIPTA INHALATION INH SCH (09:00)
[2022-08-23] MEDS: Teriparatide [Forteo] 2.4 ML Pen.Injctr SC SCH (09:07)
[2022-08-23 09:19] VITALS: BP 104/58; TEMP 96.9
== END 2022-08-23 13:15 | disposition home health service (06) | DRG 561 ==
LOC: NAV ACUTE 12:37
PROVIDERS: ADMIT Family Medicine; ATTEND Family Medicine
DX: S72.111D Displaced fracture of greater trochanter of right femur, subsequent encounter for closed fracture with routine healing (principal); R53.81 Other malaise; I25.10 Atherosclerotic heart disease of native coronary artery without angina pectoris; J44.9 Chronic obstructive pulmonary disease, unspecified; E11.9 Type 2 diabetes mellitus without complications; D50.9 Iron deficiency anemia, unspecified; N40.0 Benign prostatic hyperplasia without lower urinary tract symptoms; K21.9 Gastro-esophageal reflux disease without esophagitis; K59.00 Constipation, unspecified; R53.1 Weakness; M81.0 Age-related osteoporosis without current pathological fracture; I35.0 Nonrheumatic aortic (valve) stenosis; E78.5 Hyperlipidemia, unspecified; Z96.651 Presence of right artificial knee joint; S22.071D Stable burst fracture of T9-T10 vertebra, subsequent encounter for fracture with routine healing; Z90.49 Acquired absence of other specified parts of digestive tract; Z98.890 Other specified postprocedural states; Z88.8 Allergy status to other drugs, medicaments and biological substances; Z87.891 Personal history of nicotine dependence; Z82.49 Family history of ischemic heart disease and other diseases of the circulatory system; Z80.0 Family history of malignant neoplasm of digestive organs; Z20.822 Contact with and (suspected) exposure to COVID-19
CPT/HCPCS: 36416; 72072; 80048; 80053; 85025; 87811; 36415-59; J1815

== ENCOUNTER 2022-10-24 12:09 | Outpatient (CLI) | payer MEDICARE, BC | END 2022-10-24 12:10 | disposition home or self-care (01) | LOC: NAV CT 12:09 | PROVIDERS: ATTEND Family Medicine | DX: Z01.812 Encounter for preprocedural laboratory examination (principal); R31.0 Gross hematuria; N20.2 Calculus of kidney with calculus of ureter | CPT/HCPCS: 36415; 74178; 82565; Q9967 ==

== ENCOUNTER 2023-08-20 11:02 | Inpatient (IN) | payer MEDICARE, BC ==
[2023-08-20 12:07] LABS: #Basophils 0.1 thou/uL (0.0-0.2); #Lymphocytes 0.6 thou/uL (1.20-3.40); #Monocytes 0.8 thou/uL (0.11-0.59); #Neutrophils 8.2 thou/uL (1.40-6.50); %Basophils 0.6 % (0.0-1.0); %Lymphocytes 5.9 % (21.0-51.0); %Monocytes 8.1 % (0.0-10.0); %Neutrophils 85.5 % (42.0-75.0); Hematocrit 41.3 % (42.0-52.0); Hemoglobin 13.3 g/dL (14.0-18.0); Mean Corpuscular HGB CONC 32.3 g/dL (32.0-36.0); Mean Corpuscular Hemoglobin 26.8 pg (27.0-31.0); Mean Corpuscular Volume 83.1 fl (78.0-98.0); Platelet Count 216 10x3/uL (130-400); RBC Distribution Width 15.2 % (11.5-14.5); Red Blood Cell (RBC) Count 4.97 mill/uL (4.70-6.10); White Blood Cell (WBC) Count 9.6 10x3/uL (4.8-10.8)
[2023-08-20 12:22] LABS: Troponin I 0.066 ng/mL (< 0.028)
[2023-08-20 12:26] LABS: ALT (SGPT) 16 U/L (8-55); AST (SGOT) 18 U/L (5-34); Alkaline Phosphatase 92 U/L (40-110); Anion Gap 17 mmol/L (10-20); BUN (Urea Nitrogen) 13 mg/dL (8.4-25.7); Bilirubin, Total 0.4 mg/dL (0.2-1.2); Calc. Creatinine Clearance 0 mL/min (70-130); Calcium 9.4 mg/dL (7.8-10.44); Carbon Dioxide 26 mmol/L (23-31); Chloride 99 mmol/L (98-107); Estimated GFR 81; Globulin 2.9 g/dL (2.4-3.5); Glucose 170 mg/dL (83-110); Potassium 3.3 mmol/L (3.5-5.1); Protein, Total 6.9 g/dL (5.8-8.1); Sodium 139 mmol/L (136-145)
[2023-08-20 13:04] LABS: Bilirubin Negative (Negative); Blood, Urine Trace (Negative); Clarity Clear (Clear); Glucose, Urine (Dipstick) Negative (Negative); Ketone, Urine 15 mg/dL (Negative); Leukocyte Negative (Negative); Nitrite Negative (Negative); Protein, Urine (Dipstick) Trace mg/dL (Neg-Trace); Urobilinogen 0.2 mg/dL (Less than 2)
[2023-08-20 13:08] LABS: Bacteria/HPF Rare-Few HPF (None Seen); CAUTI Indications for Culture Pelvic or flank pain; Squamous Epithelial 0-3 HPF (0-3); WBC/HPF 0-3 HPF (0-3)
[2023-08-20 13:09] LABS: Urine Culture Reflex No No
[2023-08-20] MEDS ORDERED: Azithromycin 250 MG TAB ONE (13:35)
[2023-08-20] MEDS ORDERED: Sodium Chloride 0.9% 100 ML ONE (15:22)
[2023-08-20] MEDS ORDERED: cefTRIAXone (ROCEPHIN) 1 GM VIAL ONE (15:22)
[2023-08-20] MEDS ORDERED: Glucagon 1 MG/ML KIT IM PRN (16:03)
[2023-08-20] MEDS ORDERED: Dextrose 50% Abboject 50 ML SYRINGE SLOW IVP PRN (16:03)
[2023-08-20] MEDS ORDERED: Acetaminophen 325 MG TAB PO PRN (16:04)
[2023-08-20] MEDS ORDERED: Senokot S 8.6-50 MG TAB PO PRN (16:04)
[2023-08-20] MEDS ORDERED: HumaLOG 300 UNITS/3 ML VIAL SC PRN (16:06)
[2023-08-20 16:20] LABS: SARS-CoV-2 NAA Rapid Test DETECTED (NotDetected)
[2023-08-20] MEDS ORDERED: Potassium Chloride 20 MEQ TAB PO SCH (16:30)
[2023-08-20 17:01] VITALS: BMI 25.0
[2023-08-20] MEDS: hydrALAZINE 25 MG TAB PO PRN (17:20)
[2023-08-20] MEDS: Ferrous Sulfate 325 MG TAB PO SCH (17:20)
[2023-08-20] MEDS: HumaLOG 300 UNITS/3 ML VIAL SC PRN (17:31)
[2023-08-20 18:36] LABS: Troponin I 0.094 ng/mL (< 0.028)
[2023-08-20] MEDS ORDERED: Ipratropium/Albuterol 3 ML NEB NEB SCH (19:00)
[2023-08-20] MEDS: Ondansetron ODT 4 MG TAB SL PRN (19:56)
[2023-08-20] MEDS ORDERED: Atorvastatin Calcium 20 MG TAB PO SCH (21:00)
[2023-08-20] MEDS ORDERED: Tamsulosin HCl 0.4 MG CAP PO SCH (21:00)
[2023-08-20] MEDS ORDERED: hydrALAZINE 20 MG/ML VIAL SLOW IVP PRN (21:30)
[2023-08-20 21:42] LABS: Glucose 209 mg/dL (83-110)
[2023-08-20 21:50] LABS: Troponin I 0.095 ng/mL (< 0.028)
[2023-08-20] MEDS: Sodium Chloride 0.9% 1,000 ML IV SCH (22:00)
[2023-08-20] MEDS: Isosorbide Mononitrate 30 MG ER.TAB PO SCH (22:28)
[2023-08-20] MEDS: NIRMATRELVIR 150 MG/RITONAVIR 100 MG PO SCH (22:29)
[2023-08-20] MEDS: metFORMIN 500 MG TAB PO SCH (22:29)
[2023-08-21 05:57] LABS: #Monocytes 1.3 thou/uL (0.11-0.59); #Neutrophils 7.3 thou/uL (1.40-6.50); %Basophils 0.5 % (0.0-1.0); %Eosinophils 0.1 % (0.0-10.0); %Lymphocytes 10.3 % (21.0-51.0); %Monocytes 13.1 % (0.0-10.0); Hematocrit 42.1 % (42.0-52.0); Hemoglobin 13.7 g/dL (14.0-18.0); Mean Corpuscular HGB CONC 32.5 g/dL (32.0-36.0); Mean Corpuscular Hemoglobin 27.1 pg (27.0-31.0); Mean Corpuscular Volume 83.3 fl (78.0-98.0); Mean Platelet Volume 8.7 fL (7.4-10.4); Platelet Count 231 10x3/uL (130-400); RBC Distribution Width 15.2 % (11.5-14.5); Red Blood Cell (RBC) Count 5.06 mill/uL (4.70-6.10); White Blood Cell (WBC) Count 9.6 10x3/uL (4.8-10.8)
[2023-08-21 06:14] LABS: Anion Gap 13 mmol/L (10-20); BUN (Urea Nitrogen) 11 mg/dL (8.4-25.7); Calc. Creatinine Clearance 74 mL/min (70-130); Carbon Dioxide 27 mmol/L (23-31); Chloride 99 mmol/L (98-107); Potassium 2.7 mmol/L (3.5-5.1); Sodium 136 mmol/L (136-145)
[2023-08-21 06:15] LABS: Calcium 9.6 mg/dL (7.8-10.44); Estimated GFR 86; Glucose 132 mg/dL (83-110); Magnesium 1.5 mg/dL (1.6-2.6)
[2023-08-21] MEDS: Ondansetron ODT 4 MG TAB SL PRN (07:25)
[2023-08-21] MEDS: metFORMIN 500 MG TAB PO SCH ×2 (08:36→20:35)
[2023-08-21] MEDS: Cholecalciferol 1,000 UNITS (25 MCG) TAB PO SCH (08:36)
[2023-08-21] MEDS: Multivitamin W/ Minerals 1 TAB PO SCH (08:36)
[2023-08-21] MEDS: Ferrous Sulfate 325 MG TAB PO SCH ×2 (08:37→16:49)
[2023-08-21] MEDS: Pioglitazone HCl 15 MG TAB PO SCH (08:37)
[2023-08-21] MEDS: Azithromycin 250 MG TAB PO SCH (08:37)
[2023-08-21] MEDS: NIRMATRELVIR 150 MG/RITONAVIR 100 MG PO SCH ×2 (08:38→20:35)
[2023-08-21] MEDS: UMECLIDINIUM INH SCH ×2 (08:39→17:52)
[2023-08-21] MEDS: [UNRECOGNIZED DRUG - OTHER] INH SCH ×2 (08:39→17:52)
[2023-08-21] MEDS ORDERED: Magnesium Oxide 400 MG TAB PO SCH (09:00)
[2023-08-21] MEDS ORDERED: Non-Formulary Item 1 EACH (Teriparatide [Forteo] 2.4 ML Pen.Injctr) SC SCH (09:00)
[2023-08-21] MEDS ORDERED: Potassium Chloride 20 MEQ TAB PO SCH (09:00)
[2023-08-21] MEDS ORDERED: Clopidogrel Bisulfate 75 MG TAB PO SCH (09:00)
[2023-08-21] MEDS: Magnesium Oxide 400 MG TAB PO SCH ×2 (11:40→20:35)
[2023-08-21] MEDS: HumaLOG 300 UNITS/3 ML VIAL SC PRN (11:40)
[2023-08-21] MEDS: Sodium Chloride 0.9% 1,000 ML IV SCH (11:49)
[2023-08-21] MEDS ORDERED: cefTRIAXone\\ROCEPHIN 1 GM in Sodium Chloride 0.9% 100 ML IVPB SCH (15:00)
[2023-08-21] MEDS: Calcium Carbonate 500 MG ChewTAB PO PRN (15:46)
[2023-08-21] MEDS ORDERED: Dulaglutide [Trulicity] 1.5 MG/0.5 ML Pen.Injctr SC SCH (16:20)
[2023-08-21 16:41] LABS: Anion Gap 16 mmol/L (10-20); BUN (Urea Nitrogen) 16 mg/dL (8.4-25.7); Calc. Creatinine Clearance 61 mL/min (70-130); Calcium 9.7 mg/dL (7.8-10.44); Carbon Dioxide 25 mmol/L (23-31); Chloride 100 mmol/L (98-107); Estimated GFR 72; Glucose 121 mg/dL (83-110); Potassium 3.3 mmol/L (3.5-5.1); Sodium 138 mmol/L (136-145)
[2023-08-21] MEDS: Potassium Chloride 20 MEQ TAB PO SCH (16:49)
[2023-08-21] MEDS: TRULICITY 1.5 MG/0.5 ML SC SCH ×2 (16:49→17:52)
[2023-08-21] MEDS: Isosorbide Mononitrate 30 MG ER.TAB PO SCH (20:35)
[2023-08-21] MEDS: hydrALAZINE 25 MG TAB PO PRN (20:53)
[2023-08-22] MEDS: Calcium Carbonate 500 MG ChewTAB PO PRN (06:04)
[2023-08-22 06:44] LABS: %Eosinophils 1.1 % (0.0-10.0); %Lymphocytes 15.3 % (21.0-51.0); %Monocytes 0.8 % (0.0-10.0); %Neutrophils 64.7 % (42.0-75.0); Hematocrit 36.4 % (42.0-52.0); Hemoglobin 11.5 g/dL (14.0-18.0); Mean Corpuscular HGB CONC 31.5 g/dL (32.0-36.0); Mean Corpuscular Hemoglobin 26.3 pg (27.0-31.0); Mean Corpuscular Volume 83.6 fl (78.0-98.0); Mean Platelet Volume 9.4 fL (7.4-10.4); Platelet Count 223 10x3/uL (130-400); RBC Distribution Width 15.4 % (11.5-14.5); Red Blood Cell (RBC) Count 4.36 mill/uL (4.70-6.10); White Blood Cell (WBC) Count 6.8 10x3/uL (4.8-10.8)
[2023-08-22 06:45] LABS: %Basophils 0.1 % (0.0-1.0)
[2023-08-22 07:34] LABS: Anion Gap 13 mmol/L (10-20); BUN (Urea Nitrogen) 15 mg/dL (8.4-25.7); Calc. Creatinine Clearance 73 mL/min (70-130); Calcium 9.6 mg/dL (7.8-10.44); Carbon Dioxide 26 mmol/L (23-31); Chloride 101 mmol/L (98-107); Estimated GFR 85; Glucose 107 mg/dL (83-110); Potassium 3.4 mmol/L (3.5-5.1); Sodium 137 mmol/L (136-145)
[2023-08-22 07:44] LABS: Magnesium 1.6 mg/dL (1.6-2.6)
[2023-08-22] MEDS: Potassium Chloride 20 MEQ TAB PO SCH ×2 (08:13→16:43)
[2023-08-22] MEDS: Multivitamin W/ Minerals 1 TAB PO SCH (08:13)
[2023-08-22] MEDS: Pioglitazone HCl 15 MG TAB PO SCH (08:13)
[2023-08-22] MEDS: metFORMIN 500 MG TAB PO SCH ×2 (08:13→20:29)
[2023-08-22] MEDS: Cholecalciferol 1,000 UNITS (25 MCG) TAB PO SCH (08:13)
[2023-08-22] MEDS: Azithromycin 250 MG TAB PO SCH (08:13)
[2023-08-22] MEDS: Ferrous Sulfate 325 MG TAB PO SCH ×2 (08:13→16:43)
[2023-08-22] MEDS: NIRMATRELVIR 150 MG/RITONAVIR 100 MG PO SCH ×2 (08:14→20:29)
[2023-08-22] MEDS: UMECLIDINIUM INH SCH (09:36)
[2023-08-22] MEDS: [UNRECOGNIZED DRUG - OTHER] INH SCH (09:36)
[2023-08-22] MEDS: Magnesium Oxide 400 MG TAB PO SCH ×2 (11:37→20:28)
[2023-08-22] MEDS ORDERED: Potassium Chloride 20 MEQ TAB PO SCH (11:45)
[2023-08-22] MEDS: hydrALAZINE 25 MG TAB PO PRN (16:43)
[2023-08-22] MEDS: Isosorbide Mononitrate 30 MG ER.TAB PO SCH (20:29)
[2023-08-23 06:03] LABS: #Basophils 0.1 thou/uL (0.0-0.2); #Eosinphils 0.1 thou/uL (0.0-0.7); #Lymphocytes 1.8 thou/uL (1.20-3.40); #Monocytes 0.7 thou/uL (0.11-0.59); #Neutrophils 3.1 thou/uL (1.40-6.50); %Basophils 1.1 % (0.0-1.0); %Eosinophils 1.1 % (0.0-10.0); %Lymphocytes 30.5 % (21.0-51.0); %Monocytes 12.9 % (0.0-10.0); %Neutrophils 54.4 % (42.0-75.0); Hematocrit 40.5 % (42.0-52.0); Hemoglobin 12.8 g/dL (14.0-18.0); Mean Corpuscular HGB CONC 31.6 g/dL (32.0-36.0); Mean Corpuscular Hemoglobin 26.4 pg (27.0-31.0); Mean Corpuscular Volume 83.6 fl (78.0-98.0); Mean Platelet Volume 8.9 fL (7.4-10.4); Platelet Count 249 10x3/uL (130-400); RBC Distribution Width 15.1 % (11.5-14.5); Red Blood Cell (RBC) Count 4.85 mill/uL (4.70-6.10); White Blood Cell (WBC) Count 5.8 10x3/uL (4.8-10.8)
[2023-08-23 06:05] LABS: Anion Gap 17 mmol/L (10-20); BUN (Urea Nitrogen) 17 mg/dL (8.4-25.7); Calc. Creatinine Clearance 71 mL/min (70-130); Calcium 10.1 mg/dL (7.8-10.44); Carbon Dioxide 24 mmol/L (23-31); Chloride 101 mmol/L (98-107); Estimated GFR 85; Glucose 108 mg/dL (83-110); Potassium 4.7 mmol/L (3.5-5.1); Sodium 137 mmol/L (136-145)
[2023-08-23] MEDS: metFORMIN 500 MG TAB PO SCH (08:01)
[2023-08-23] MEDS: Ferrous Sulfate 325 MG TAB PO SCH (08:01)
[2023-08-23] MEDS: Potassium Chloride 20 MEQ TAB PO SCH (08:01)
[2023-08-23] MEDS: Multivitamin W/ Minerals 1 TAB PO SCH (08:02)
[2023-08-23] MEDS: Pioglitazone HCl 15 MG TAB PO SCH (08:02)
[2023-08-23] MEDS: Cholecalciferol 1,000 UNITS (25 MCG) TAB PO SCH (08:03)
[2023-08-23] MEDS: NIRMATRELVIR 150 MG/RITONAVIR 100 MG PO SCH (08:03)
[2023-08-23] MEDS: [UNRECOGNIZED DRUG - OTHER] INH SCH (08:05)
[2023-08-23] MEDS: UMECLIDINIUM INH SCH (08:05)
[2023-08-23] MEDS: Magnesium Oxide 400 MG TAB PO SCH (12:03)
[2023-08-23] MEDS: hydrALAZINE 25 MG TAB PO PRN (12:23)
[2023-08-23 15:30] VITALS: BP 142/75; TEMP 97.9
== END 2023-08-23 16:59 | disposition swing bed (61) | DRG 177 ==
LOC: NAV ERS 11:02 → NAV ACUTE 15:39
PROVIDERS: ADMIT Family Medicine; ATTEND Family Medicine
DX: U07.1 COVID-19 (principal); J12.82 Pneumonia due to coronavirus disease 2019; I24.89 Other forms of acute ischemic heart disease; I10 Essential (primary) hypertension; D50.9 Iron deficiency anemia, unspecified; Z66 Do not resuscitate; I25.10 Atherosclerotic heart disease of native coronary artery without angina pectoris; M51.36 Other intervertebral disc degeneration, lumbar region; E11.51 Type 2 diabetes mellitus with diabetic peripheral angiopathy without gangrene; N40.0 Benign prostatic hyperplasia without lower urinary tract symptoms; I35.0 Nonrheumatic aortic (valve) stenosis; E78.5 Hyperlipidemia, unspecified; J44.9 Chronic obstructive pulmonary disease, unspecified; R53.1 Weakness; M81.0 Age-related osteoporosis without current pathological fracture; E87.6 Hypokalemia; E86.0 Dehydration; R79.89 Other specified abnormal findings of blood chemistry; R53.81 Other malaise; E83.42 Hypomagnesemia; Z96.652 Presence of left artificial knee joint; Z98.890 Other specified postprocedural states; Z90.49 Acquired absence of other specified parts of digestive tract; Z80.0 Family history of malignant neoplasm of digestive organs; Z82.49 Family history of ischemic heart disease and other diseases of the circulatory system; Z87.891 Personal history of nicotine dependence
CPT/HCPCS: 36415; 36416; 71045; 80048; 80053; 81001; 83605; 83735; 83880; 84145; 84484; 85025; 87040; 87804; 87807; 93005; 96361; 96365; J0360; J0696; J1650; J1815; J3490; J7050; Q0162; U0002

== ENCOUNTER 2023-08-28 13:52 | Emergency (ER) | payer MEDICARE, BC ==
[2023-08-28 14:26] LABS: #Basophils 0.1 thou/uL (0.0-0.2); #Lymphocytes 1.9 thou/uL (1.20-3.40); #Monocytes 0.6 thou/uL (0.11-0.59); #Neutrophils 7.2 thou/uL (1.40-6.50); %Basophils 0.8 % (0.0-1.0); %Eosinophils 0.3 % (0.0-10.0); %Lymphocytes 19.6 % (21.0-51.0); %Monocytes 6.2 % (0.0-10.0); %Neutrophils 73.2 % (42.0-75.0); Hematocrit 44.7 % (42.0-52.0); Hemoglobin 13.9 g/dL (14.0-18.0); Mean Corpuscular HGB CONC 31.2 g/dL (32.0-36.0); Mean Corpuscular Hemoglobin 26.1 pg (27.0-31.0); Mean Corpuscular Volume 83.7 fl (78.0-98.0); Mean Platelet Volume 8.3 fL (7.4-10.4); Platelet Count 418 10x3/uL (130-400); RBC Distribution Width 14.8 % (11.5-14.5); Red Blood Cell (RBC) Count 5.34 mill/uL (4.70-6.10); White Blood Cell (WBC) Count 9.8 10x3/uL (4.8-10.8)
[2023-08-28 14:29] LABS: INR-International Normal Ratio 0.9; Prothrombin Time 12.6 sec (12.0-14.7)
[2023-08-28 14:35] LABS: ALT (SGPT) 23 U/L (8-55); AST (SGOT) 22 U/L (5-34); Albumin 4.2 g/dL (3.4-4.8); Alkaline Phosphatase 98 U/L (40-110); Anion Gap 20 mmol/L (10-20); BUN (Urea Nitrogen) 26 mg/dL (8.4-25.7); Bilirubin, Total 0.2 mg/dL (0.2-1.2); Calc. Creatinine Clearance 0 mL/min (70-130); Calcium 10.8 mg/dL (7.8-10.44); Carbon Dioxide 22 mmol/L (23-31); Chloride 98 mmol/L (98-107); Estimated GFR 56; Globulin 3.4 g/dL (2.4-3.5); Glucose 112 mg/dL (83-110); Potassium 5.2 mmol/L (3.5-5.1); Protein, Total 7.6 g/dL (5.8-8.1); Sodium 135 mmol/L (136-145)
== END 2023-08-28 17:19 | disposition critical access hospital (66) ==
LOC: NAV ERS 13:52
DX: U07.1 COVID-19 (principal); R41.82 Altered mental status, unspecified; G47.00 Insomnia, unspecified; D75.839 Thrombocytosis, unspecified; R79.89 Other specified abnormal findings of blood chemistry; J44.9 Chronic obstructive pulmonary disease, unspecified; I10 Essential (primary) hypertension; Z87.891 Personal history of nicotine dependence
CPT/HCPCS: 70450; 71045; 84484; 85025; 85610; 85730; 93005; 36415-59

== ENCOUNTER 2023-10-01 11:12 | Outpatient (CLI) | payer MEDICARE, BC | END 2023-10-01 11:13 | disposition home or self-care (01) | LOC: NAV CT 11:12 | PROVIDERS: ATTEND Urology | DX: N20.0 Calculus of kidney (principal); N21.0 Calculus in bladder; N32.3 Diverticulum of bladder; N40.0 Benign prostatic hyperplasia without lower urinary tract symptoms; N32.89 Other specified disorders of bladder | CPT/HCPCS: 74176 ==

== ENCOUNTER 2024-03-06 10:03 | Emergency (ER) | payer BC, MEDICARE ==
[2024-03-06] MEDS ORDERED: Morphine 2 MG/ML VIAL ONE (11:47)
[2024-03-06] MEDS ORDERED: Ondansetron PF 4 MG/2 ML Vial ONE (11:47)
[2024-03-06 12:16] LABS: #Basophils 0.1 thou/uL (0.0-0.2); #Lymphocytes 0.9 thou/uL (1.20-3.40); #Monocytes 0.6 thou/uL (0.11-0.59); #Neutrophils 10.8 thou/uL (1.40-6.50); %Basophils 0.7 % (0.0-1.0); %Eosinophils 0.1 % (0.0-10.0); %Lymphocytes 6.9 % (21.0-51.0); %Monocytes 4.9 % (0.0-10.0); %Neutrophils 87.5 % (42.0-75.0); Hematocrit 41.1 % (42.0-52.0); Hemoglobin 12.7 g/dL (14.0-18.0); Mean Corpuscular HGB CONC 30.8 g/dL (32.0-36.0); Mean Corpuscular Hemoglobin 26.1 pg (27.0-31.0); Mean Corpuscular Volume 84.8 fl (78.0-98.0); Platelet Count 239 10x3/uL (130-400); RBC Distribution Width 13.7 % (11.5-14.5); Red Blood Cell (RBC) Count 4.85 mill/uL (4.70-6.10); White Blood Cell (WBC) Count 12.4 10x3/uL (4.8-10.8)
[2024-03-06 12:21] LABS: Bilirubin Negative (Negative); Blood, Urine Negative (Negative); Clarity Clear (Clear); Glucose, Urine (Dipstick) Negative (Negative); Ketone, Urine 40 mg/dL (Negative); Leukocyte Negative (Negative); Nitrite Negative (Negative); Protein, Urine (Dipstick) Negative (Neg-Trace); Urobilinogen 0.2 mg/dL (Less than 2); pH, Urine 6.5 (5.0-9.0)
[2024-03-06 12:22] LABS: CAUTI Indications for Culture Pelvic or flank pain; RBC/HPF 0-3 HPF (0-3); Urine Culture Reflex No No; WBC/HPF 0-3 HPF (0-3)
[2024-03-06 12:29] LABS: ALT (SGPT) 14 U/L (8-55); AST (SGOT) 12 U/L (5-34); Albumin 3.9 g/dL (3.4-4.8); Alkaline Phosphatase 114 U/L (40-110); Anion Gap 15 mmol/L (10-20); BUN (Urea Nitrogen) 24 mg/dL (8.4-25.7); Bilirubin, Total 0.4 mg/dL (0.2-1.2); Calc. Creatinine Clearance 0 mL/min (70-130); Calcium 9.6 mg/dL (7.8-10.44); Carbon Dioxide 25 mmol/L (23-31); Chloride 98 mmol/L (98-107); Estimated GFR 87; Globulin 3.3 g/dL (2.4-3.5); Glucose 247 mg/dL (83-110); Potassium 3.8 mmol/L (3.5-5.1); Protein, Total 7.2 g/dL (5.8-8.1); Sodium 134 mmol/L (136-145)
== END 2024-03-06 15:57 | disposition short-term general hospital (02) ==
LOC: NAV ERS 10:03
DX: S72.121A Displaced fracture of lesser trochanter of right femur, initial encounter for closed fracture (principal); E11.9 Type 2 diabetes mellitus without complications; J44.9 Chronic obstructive pulmonary disease, unspecified; E78.5 Hyperlipidemia, unspecified; Z87.891 Personal history of nicotine dependence; Z79.899 Other long term (current) drug therapy; Z79.84 Long term (current) use of oral hypoglycemic drugs; W07.XXXA Fall from chair, initial encounter
CPT/HCPCS: 36415; 72125; 72170; 80053; 81001; 85025; 96374; 96375; J2272; J2405

== ENCOUNTER 2024-03-10 07:37 | Inpatient (IN) | payer MEDICARE ==
[2024-03-10] MEDS ORDERED: Dextrose 5% in Water 1,000 ML IV PRN (20:45)
[2024-03-10] MEDS ORDERED: Glucagon 1 MG/ML KIT SC PRN (20:45)
[2024-03-10] MEDS ORDERED: Dextrose 50% Abboject 50 ML SYRINGE SLOW IVP PRN (20:45)
[2024-03-10] MEDS: HumaLOG 300 UNITS/3 ML VIAL SC PRN (21:00)
[2024-03-10] MEDS: Isosorbide Mononitrate 60 MG ER.TAB PO SCH (21:00)
[2024-03-10] MEDS: Tamsulosin HCl 0.4 MG CAP PO SCH (21:00)
[2024-03-10] MEDS: Atorvastatin Calcium 20 MG TAB PO SCH (21:00)
[2024-03-10] MEDS: Ipratropium/Albuterol 3 ML NEB NEB SCH (23:51)
[2024-03-11] MEDS: HumaLOG 300 UNITS/3 ML VIAL SC PRN (05:58)
[2024-03-11 06:01] LABS: #Basophils 0.1 thou/uL (0.0-0.2); #Eosinphils 0.1 thou/uL (0.0-0.7); #Lymphocytes 0.7 thou/uL (1.20-3.40); #Monocytes 0.9 thou/uL (0.11-0.59); #Neutrophils 5.5 thou/uL (1.40-6.50); %Basophils 0.9 % (0.0-1.0); %Eosinophils 1.1 % (0.0-10.0); %Lymphocytes 9.9 % (21.0-51.0); %Monocytes 12.4 % (0.0-10.0); %Neutrophils 75.8 % (42.0-75.0); Hematocrit 36.6 % (42.0-52.0); Hemoglobin 11.2 g/dL (14.0-18.0); Mean Corpuscular HGB CONC 30.6 g/dL (32.0-36.0); Mean Corpuscular Volume 85.2 fl (78.0-98.0); Mean Platelet Volume 8.3 fL (7.4-10.4); Platelet Count 194 10x3/uL (130-400); RBC Distribution Width 13.4 % (11.5-14.5); Red Blood Cell (RBC) Count 4.29 mill/uL (4.70-6.10); White Blood Cell (WBC) Count 7.2 10x3/uL (4.8-10.8)
[2024-03-11 06:12] LABS: ALT (SGPT) 21 U/L (8-55); AST (SGOT) 20 U/L (5-34); Albumin 2.6 g/dL (3.4-4.8); Alkaline Phosphatase 97 U/L (40-110); Anion Gap 15 mmol/L (10-20); BUN (Urea Nitrogen) 15 mg/dL (8.4-25.7); Bilirubin, Total 0.7 mg/dL (0.2-1.2); Calc. Creatinine Clearance 71 mL/min (70-130); Calcium 9.2 mg/dL (7.8-10.44); Carbon Dioxide 26 mmol/L (23-31); Chloride 101 mmol/L (98-107); Estimated GFR 87; Globulin 3.9 g/dL (2.4-3.5); Glucose 275 mg/dL (83-110); Potassium 3.9 mmol/L (3.5-5.1); Protein, Total 6.5 g/dL (5.8-8.1); Sodium 138 mmol/L (136-145)
[2024-03-11] MEDS: HYDROcodone/Acetaminophen 5/325 mg Tablet PO PRN (07:15)
[2024-03-11] MEDS: Cholecalciferol 1,000 UNITS (25 MCG) TAB PO SCH (08:04)
[2024-03-11] MEDS: metFORMIN 500 MG TAB PO SCH (08:05)
[2024-03-11] MEDS: Ferrous Sulfate 325 MG TAB PO SCH ×2 (08:07→08:45)
[2024-03-11] MEDS: Pioglitazone HCl 15 MG TAB PO SCH (08:07)
[2024-03-11] MEDS: Pantoprazole DR 40 MG TAB PO SCH (08:07)
[2024-03-11] MEDS: Finasteride 5 MG TAB PO SCH (08:07)
[2024-03-11] MEDS: Potassium Chloride 20 MEQ TAB PO SCH (08:08)
[2024-03-11] MEDS: Clopidogrel Bisulfate 75 MG TAB PO SCH (08:08)
[2024-03-11] MEDS: Furosemide 20 MG TAB PO SCH (08:08)
[2024-03-11] MEDS: Ascorbic Acid 500 mg Chewable Tablet PO SCH (08:50)
[2024-03-11] MEDS: Polyethylene Glycol 3350 17 GM Packet PO SCH (08:50)
[2024-03-11] MEDS ORDERED: Diclofenac 1% 100 GM Topical GEL TP PRN (08:51)
[2024-03-11] MEDS ORDERED: Non-Formulary Item 1 EACH (Semaglutide [Ozempic] 0.25 MG) SQ SCH (09:00)
[2024-03-11] MEDS ORDERED: Semaglutide [Ozempic] 0.25 MG SC SCH (09:00)
[2024-03-11] MEDS: Acetaminophen 325 MG TAB PO PRN (12:01)
[2024-03-11] MEDS: MAG OX PO SCH ×2 (13:32→13:35)
[2024-03-11] MEDS: [UNRECOGNIZED DRUG - OTHER] PO SCH ×2 (13:32→13:35)
[2024-03-11] MEDS: D3 PO SCH ×2 (13:32→13:35)
[2024-03-11] MEDS: Semaglutide [Ozempic] 0.25 MG SC SCH (13:35)
[2024-03-11] MEDS: Multivitamin W/ Minerals 1 TAB PO SCH (17:04)
[2024-03-11] MEDS: EYE HEALTH COMPLEX PO SCH (17:04)
[2024-03-12] MEDS: HYDROcodone/Acetaminophen 5/325 mg Tablet PO PRN (08:36)
[2024-03-12] MEDS: Multivitamin W/ Minerals 1 TAB PO SCH (08:36)
[2024-03-12] MEDS: [UNRECOGNIZED DRUG - OTHER] PO SCH (08:37)
[2024-03-12] MEDS: MAG OX PO SCH (08:37)
[2024-03-12] MEDS: D3 PO SCH (08:37)
[2024-03-12] MEDS ORDERED: MAG OX PO SCH (09:00)
[2024-03-12] MEDS ORDERED: D3 PO SCH (09:00)
[2024-03-12] MEDS ORDERED: [UNRECOGNIZED DRUG - OTHER] PO SCH (09:00)
[2024-03-12] MEDS: Lantus 1000 UNITS/10 ML VIAL SC SCH (16:40)
[2024-03-13 05:58] LABS: #Basophils 0.1 thou/uL (0.0-0.2); #Eosinphils 0.1 thou/uL (0.0-0.7); #Monocytes 0.9 thou/uL (0.11-0.59); %Basophils 1.2 % (0.0-1.0); %Eosinophils 1.7 % (0.0-10.0); %Lymphocytes 12.4 % (21.0-51.0); %Monocytes 10.5 % (0.0-10.0); %Neutrophils 74.3 % (42.0-75.0); Hematocrit 37.1 % (42.0-52.0); Hemoglobin 11.6 g/dL (14.0-18.0); Mean Corpuscular HGB CONC 31.3 g/dL (32.0-36.0); Mean Corpuscular Hemoglobin 26.1 pg (27.0-31.0); Mean Corpuscular Volume 83.4 fl (78.0-98.0); Mean Platelet Volume 8.4 fL (7.4-10.4); Platelet Count 169 10x3/uL (130-400); RBC Distribution Width 13.7 % (11.5-14.5); Red Blood Cell (RBC) Count 4.44 mill/uL (4.70-6.10); White Blood Cell (WBC) Count 8.1 10x3/uL (4.8-10.8)
[2024-03-13] MEDS: Ferrous Sulfate 325 MG TAB PO SCH (07:48)
[2024-03-13] MEDS: Lantus 1000 UNITS/10 ML VIAL SC SCH (17:18)
[2024-03-13] MEDS: Melatonin 3 MG TAB PO SCH (21:00)
[2024-03-16 06:22] LABS: #Basophils 0.1 thou/uL (0.0-0.2); #Eosinphils 0.1 thou/uL (0.0-0.7); #Lymphocytes 1.3 thou/uL (1.20-3.40); #Monocytes 0.7 thou/uL (0.11-0.59); #Neutrophils 4.9 thou/uL (1.40-6.50); %Basophils 1.1 % (0.0-1.0); %Eosinophils 1.2 % (0.0-10.0); %Lymphocytes 17.9 % (21.0-51.0); %Monocytes 10.3 % (0.0-10.0); %Neutrophils 69.5 % (42.0-75.0); Hematocrit 36.7 % (42.0-52.0); Hemoglobin 11.4 g/dL (14.0-18.0); Mean Corpuscular HGB CONC 31.1 g/dL (32.0-36.0); Mean Corpuscular Hemoglobin 26.2 pg (27.0-31.0); Mean Corpuscular Volume 84.3 fl (78.0-98.0); Mean Platelet Volume 7.4 fL (7.4-10.4); Platelet Count 317 10x3/uL (130-400); RBC Distribution Width 14.1 % (11.5-14.5); Red Blood Cell (RBC) Count 4.36 mill/uL (4.70-6.10)
[2024-03-16 06:33] LABS: ALT (SGPT) 9 U/L (8-55); AST (SGOT) 9 U/L (5-34); Albumin 2.8 g/dL (3.4-4.8); Alkaline Phosphatase 107 U/L (40-110); Anion Gap 16 mmol/L (10-20); BUN (Urea Nitrogen) 18 mg/dL (8.4-25.7); Bilirubin, Total 0.5 mg/dL (0.2-1.2); Calc. Creatinine Clearance 75 mL/min (70-130); Calcium 9.4 mg/dL (7.8-10.44); Carbon Dioxide 26 mmol/L (23-31); Chloride 97 mmol/L (98-107); Estimated GFR 89; Globulin 3.4 g/dL (2.4-3.5); Glucose 196 mg/dL (83-110); Potassium 3.8 mmol/L (3.5-5.1); Protein, Total 6.2 g/dL (5.8-8.1); Sodium 135 mmol/L (136-145)
[2024-03-17] MEDS ORDERED: SEMAGLUTIDE 0.25 MG/0.368 ML SQ SCH (09:00)
[2024-03-17] MEDS: Calcium Carbonate 500 MG ChewTAB PO PRN (11:33)
[2024-03-20 06:45] LABS: #Basophils 0.1 thou/uL (0.0-0.2); #Lymphocytes 1.2 thou/uL (1.20-3.40); #Monocytes 0.7 thou/uL (0.11-0.59); #Neutrophils 6.6 thou/uL (1.40-6.50); %Basophils 1.1 % (0.0-1.0); %Eosinophils 0.3 % (0.0-10.0); %Lymphocytes 14.3 % (21.0-51.0); %Monocytes 8.2 % (0.0-10.0); %Neutrophils 76.1 % (42.0-75.0); BUN (Urea Nitrogen) 15 mg/dL (8.4-25.7); Calc. Creatinine Clearance 74 mL/min (70-130); Estimated GFR 88; Hematocrit 36.1 % (42.0-52.0); Hemoglobin 11.4 g/dL (14.0-18.0); Mean Corpuscular HGB CONC 31.6 g/dL (32.0-36.0); Mean Corpuscular Hemoglobin 26.5 pg (27.0-31.0); Mean Corpuscular Volume 83.9 fl (78.0-98.0); Mean Platelet Volume 7.1 fL (7.4-10.4); Platelet Count 380 10x3/uL (130-400); RBC Distribution Width 14.4 % (11.5-14.5); Red Blood Cell (RBC) Count 4.31 mill/uL (4.70-6.10); White Blood Cell (WBC) Count 8.7 10x3/uL (4.8-10.8)
[2024-03-20 07:13] LABS: Anion Gap 14 mmol/L (10-20); Calcium 9.5 mg/dL (7.8-10.44); Carbon Dioxide 25 mmol/L (23-31); Chloride 101 mmol/L (98-107); Glucose 159 mg/dL (83-110); Sodium 136 mmol/L (136-145)
[2024-03-22 06:07] LABS: #Basophils 0.1 thou/uL (0.0-0.2); #Eosinphils 0.1 thou/uL (0.0-0.7); #Lymphocytes 1.4 thou/uL (1.20-3.40); #Monocytes 0.7 thou/uL (0.11-0.59); #Neutrophils 3.9 thou/uL (1.40-6.50); %Basophils 1.5 % (0.0-1.0); %Eosinophils 1.1 % (0.0-10.0); %Lymphocytes 22.3 % (21.0-51.0); %Monocytes 10.9 % (0.0-10.0); %Neutrophils 64.2 % (42.0-75.0); Hematocrit 37.3 % (42.0-52.0); Hemoglobin 11.3 g/dL (14.0-18.0); Mean Corpuscular HGB CONC 30.4 g/dL (32.0-36.0); Mean Corpuscular Volume 85.3 fl (78.0-98.0); Mean Platelet Volume 6.9 fL (7.4-10.4); Platelet Count 382 10x3/uL (130-400); RBC Distribution Width 14.6 % (11.5-14.5); Red Blood Cell (RBC) Count 4.37 mill/uL (4.70-6.10); White Blood Cell (WBC) Count 6.1 10x3/uL (4.8-10.8)
[2024-03-22 06:15] LABS: Anion Gap 12 mmol/L (10-20); BUN (Urea Nitrogen) 15 mg/dL (8.4-25.7); Calc. Creatinine Clearance 67 mL/min (70-130); Calcium 9.8 mg/dL (7.8-10.44); Carbon Dioxide 28 mmol/L (23-31); Chloride 100 mmol/L (98-107); Estimated GFR 86; Glucose 150 mg/dL (83-110); Potassium 4.1 mmol/L (3.5-5.1); Sodium 136 mmol/L (136-145)
[2024-03-25] MEDS: Senokot S 8.6-50 MG TAB PO PRN (12:10)
[2024-03-25] MEDS: Bisacodyl 5 MG TAB PO PRN (17:01)
[2024-03-26 05:56] LABS: #Basophils 0.1 thou/uL (0.0-0.2); #Lymphocytes 1.5 thou/uL (1.20-3.40); #Monocytes 0.8 thou/uL (0.11-0.59); #Neutrophils 5.8 thou/uL (1.40-6.50); %Basophils 1.1 % (0.0-1.0); %Eosinophils 0.5 % (0.0-10.0); %Lymphocytes 18.6 % (21.0-51.0); %Monocytes 9.1 % (0.0-10.0); %Neutrophils 70.6 % (42.0-75.0); Hematocrit 39.6 % (42.0-52.0); Hemoglobin 12.3 g/dL (14.0-18.0); Mean Corpuscular HGB CONC 31.1 g/dL (32.0-36.0); Mean Corpuscular Hemoglobin 26.5 pg (27.0-31.0); Mean Platelet Volume 7.4 fL (7.4-10.4); Platelet Count 436 10x3/uL (130-400); RBC Distribution Width 14.8 % (11.5-14.5); Red Blood Cell (RBC) Count 4.66 mill/uL (4.70-6.10); White Blood Cell (WBC) Count 8.3 10x3/uL (4.8-10.8)
[2024-03-26 06:09] LABS: Anion Gap 18 mmol/L (10-20); BUN (Urea Nitrogen) 25 mg/dL (8.4-25.7); Calc. Creatinine Clearance 67 mL/min (70-130); Calcium 9.8 mg/dL (7.8-10.44); Carbon Dioxide 23 mmol/L (23-31); Chloride 99 mmol/L (98-107); Estimated GFR 85; Glucose 164 mg/dL (83-110); Potassium 3.9 mmol/L (3.5-5.1); Sodium 136 mmol/L (136-145)
[2024-03-29 05:38] LABS: #Eosinphils 0.1 thou/uL (0.0-0.7); #Lymphocytes 1.5 thou/uL (1.20-3.40); #Monocytes 0.8 thou/uL (0.11-0.59); #Neutrophils 5.5 thou/uL (1.40-6.50); %Basophils 0.6 % (0.0-1.0); %Eosinophils 0.7 % (0.0-10.0); %Monocytes 9.5 % (0.0-10.0); %Neutrophils 70.1 % (42.0-75.0); Hematocrit 36.3 % (42.0-52.0); Hemoglobin 11.3 g/dL (14.0-18.0); Mean Corpuscular HGB CONC 31.3 g/dL (32.0-36.0); Mean Corpuscular Hemoglobin 26.7 pg (27.0-31.0); Mean Corpuscular Volume 85.3 fl (78.0-98.0); Mean Platelet Volume 7.7 fL (7.4-10.4); Platelet Count 301 10x3/uL (130-400); RBC Distribution Width 14.4 % (11.5-14.5); Red Blood Cell (RBC) Count 4.25 mill/uL (4.70-6.10); White Blood Cell (WBC) Count 7.8 10x3/uL (4.8-10.8)
[2024-03-29 05:53] LABS: Anion Gap 13 mmol/L (10-20); BUN (Urea Nitrogen) 16 mg/dL (8.4-25.7); Calc. Creatinine Clearance 70 mL/min (70-130); Calcium 10.1 mg/dL (7.8-10.44); Carbon Dioxide 28 mmol/L (23-31); Chloride 100 mmol/L (98-107); Estimated GFR 87; Glucose 145 mg/dL (83-110); Potassium 3.8 mmol/L (3.5-5.1); Sodium 137 mmol/L (136-145)
[2024-04-04 05:33] LABS: #Eosinphils 0.1 thou/uL (0.0-0.7); #Lymphocytes 1.4 thou/uL (1.20-3.40); #Monocytes 0.8 thou/uL (0.11-0.59); %Basophils 0.6 % (0.0-1.0); %Eosinophils 0.8 % (0.0-10.0); %Lymphocytes 18.9 % (21.0-51.0); %Monocytes 10.5 % (0.0-10.0); %Neutrophils 69.2 % (42.0-75.0); Hematocrit 40.2 % (42.0-52.0); Hemoglobin 12.3 g/dL (14.0-18.0); Mean Corpuscular HGB CONC 30.7 g/dL (32.0-36.0); Mean Corpuscular Hemoglobin 26.1 pg (27.0-31.0); Mean Corpuscular Volume 85.3 fl (78.0-98.0); Mean Platelet Volume 8.3 fL (7.4-10.4); Platelet Count 204 10x3/uL (130-400); RBC Distribution Width 14.5 % (11.5-14.5); Red Blood Cell (RBC) Count 4.72 mill/uL (4.70-6.10); White Blood Cell (WBC) Count 7.2 10x3/uL (4.8-10.8)
[2024-04-04 05:44] LABS: Anion Gap 14 mmol/L (10-20); BUN (Urea Nitrogen) 17 mg/dL (8.4-25.7); Calc. Creatinine Clearance 67 mL/min (70-130); Calcium 9.8 mg/dL (7.8-10.44); Carbon Dioxide 28 mmol/L (23-31); Chloride 98 mmol/L (98-107); Estimated GFR 85; Glucose 129 mg/dL (83-110); Potassium 4.2 mmol/L (3.5-5.1); Sodium 136 mmol/L (136-145)
[2024-04-07] MEDS: Lantus 1000 UNITS/10 ML VIAL SC SCH (17:10)
[2024-04-08] MEDS: Lantus 1000 UNITS/10 ML VIAL SC SCH (17:00)
[2024-04-10 06:26] LABS: #Basophils 0.1 thou/uL (0.0-0.2); #Lymphocytes 1.7 thou/uL (1.20-3.40); #Monocytes 0.7 thou/uL (0.11-0.59); #Neutrophils 4.3 thou/uL (1.40-6.50); %Basophils 0.9 % (0.0-1.0); %Eosinophils 0.5 % (0.0-10.0); %Lymphocytes 24.8 % (21.0-51.0); %Monocytes 10.5 % (0.0-10.0); %Neutrophils 63.3 % (42.0-75.0); Hematocrit 40.4 % (42.0-52.0); Hemoglobin 12.5 g/dL (14.0-18.0); Mean Corpuscular HGB CONC 31.1 g/dL (32.0-36.0); Mean Corpuscular Hemoglobin 26.4 pg (27.0-31.0); Mean Platelet Volume 8.5 fL (7.4-10.4); Platelet Count 247 10x3/uL (130-400); RBC Distribution Width 14.4 % (11.5-14.5); Red Blood Cell (RBC) Count 4.75 mill/uL (4.70-6.10); White Blood Cell (WBC) Count 6.7 10x3/uL (4.8-10.8)
[2024-04-10 06:37] LABS: Anion Gap 16 mmol/L (10-20); BUN (Urea Nitrogen) 20 mg/dL (8.4-25.7); Calc. Creatinine Clearance 74 mL/min (70-130); Calcium 10.5 mg/dL (7.8-10.44); Carbon Dioxide 25 mmol/L (23-31); Chloride 99 mmol/L (98-107); Estimated GFR 88; Glucose 114 mg/dL (83-110); Sodium 136 mmol/L (136-145)
[2024-04-12 05:14] VITALS: BMI 23.7
[2024-04-14 05:55] VITALS: BMI 23.7
[2024-04-16 05:52] LABS: #Basophils 0.1 thou/uL (0.0-0.2); #Lymphocytes 1.5 thou/uL (1.20-3.40); #Monocytes 0.8 thou/uL (0.11-0.59); #Neutrophils 4.9 thou/uL (1.40-6.50); %Basophils 0.7 % (0.0-1.0); %Eosinophils 0.5 % (0.0-10.0); %Lymphocytes 20.8 % (21.0-51.0); %Monocytes 10.4 % (0.0-10.0); %Neutrophils 67.6 % (42.0-75.0); Hemoglobin 11.9 g/dL (14.0-18.0); Mean Corpuscular HGB CONC 31.2 g/dL (32.0-36.0); Mean Corpuscular Hemoglobin 26.2 pg (27.0-31.0); Mean Platelet Volume 7.8 fL (7.4-10.4); Platelet Count 249 10x3/uL (130-400); RBC Distribution Width 14.1 % (11.5-14.5); Red Blood Cell (RBC) Count 4.53 mill/uL (4.70-6.10); White Blood Cell (WBC) Count 7.3 10x3/uL (4.8-10.8)
[2024-04-16 06:09] LABS: Anion Gap 13 mmol/L (10-20); BUN (Urea Nitrogen) 23 mg/dL (8.4-25.7); Calc. Creatinine Clearance 67 mL/min (70-130); Calcium 10.1 mg/dL (7.8-10.44); Carbon Dioxide 26 mmol/L (23-31); Chloride 100 mmol/L (98-107); Estimated GFR 86; Glucose 112 mg/dL (83-110); Potassium 3.9 mmol/L (3.5-5.1); Sodium 135 mmol/L (136-145)
[2024-04-17] MEDS ORDERED: HYDROcodone/Acetaminophen 5/325 mg Tablet PO PRN ×2 (13:40)
[2024-04-18] MEDS: Acetaminophen 325 MG TAB PO PRN (20:39)
[2024-04-23 05:54] LABS: #Lymphocytes 1.5 thou/uL (1.20-3.40); #Monocytes 0.7 thou/uL (0.11-0.59); #Neutrophils 3.5 thou/uL (1.40-6.50); %Basophils 0.7 % (0.0-1.0); %Eosinophils 0.4 % (0.0-10.0); %Lymphocytes 26.7 % (21.0-51.0); %Monocytes 11.4 % (0.0-10.0); %Neutrophils 60.8 % (42.0-75.0); Hematocrit 40.6 % (42.0-52.0); Hemoglobin 12.7 g/dL (14.0-18.0); Mean Corpuscular HGB CONC 31.3 g/dL (32.0-36.0); Mean Corpuscular Hemoglobin 26.4 pg (27.0-31.0); Mean Corpuscular Volume 84.2 fl (78.0-98.0); Mean Platelet Volume 7.8 fL (7.4-10.4); Platelet Count 272 10x3/uL (130-400); RBC Distribution Width 14.2 % (11.5-14.5); Red Blood Cell (RBC) Count 4.82 mill/uL (4.70-6.10); White Blood Cell (WBC) Count 5.7 10x3/uL (4.8-10.8)
[2024-04-23 06:07] LABS: Anion Gap 14 mmol/L (10-20); BUN (Urea Nitrogen) 23 mg/dL (8.4-25.7); Calc. Creatinine Clearance 70 mL/min (70-130); Carbon Dioxide 25 mmol/L (23-31); Chloride 102 mmol/L (98-107); Estimated GFR 87; Glucose 116 mg/dL (83-110); Potassium 3.7 mmol/L (3.5-5.1); Sodium 137 mmol/L (136-145)
[2024-04-24 12:55] VITALS: BP 128/70; TEMP 97.4
== END 2024-04-24 13:24 | disposition home health service (06) | DRG 560 ==
LOC: NAV ACUTE 19:03
PROVIDERS: ADMIT Family Medicine; ATTEND Family Medicine
DX: S72.141D Displaced intertrochanteric fracture of right femur, subsequent encounter for closed fracture with routine healing (principal); I50.32 Chronic diastolic (congestive) heart failure; I25.10 Atherosclerotic heart disease of native coronary artery without angina pectoris; Z66 Do not resuscitate; R53.81 Other malaise; E78.5 Hyperlipidemia, unspecified; D50.9 Iron deficiency anemia, unspecified; I11.0 Hypertensive heart disease with heart failure; M81.0 Age-related osteoporosis without current pathological fracture; M25.761 Osteophyte, right knee; N40.0 Benign prostatic hyperplasia without lower urinary tract symptoms; M17.11 Unilateral primary osteoarthritis, right knee; J44.9 Chronic obstructive pulmonary disease, unspecified; F17.210 Nicotine dependence, cigarettes, uncomplicated; E11.51 Type 2 diabetes mellitus with diabetic peripheral angiopathy without gangrene; Z96.652 Presence of left artificial knee joint; W19.XXXD Unspecified fall, subsequent encounter; Z90.49 Acquired absence of other specified parts of digestive tract; Z98.890 Other specified postprocedural states; K21.9 Gastro-esophageal reflux disease without esophagitis
CPT/HCPCS: 36415; 36416; 80048; 80053; 83036; 85025; 94640; J1815; J7620

== ENCOUNTER 2024-10-07 06:55 | Emergency (ER) | payer MEDICARE ==
[2024-10-07 07:58] LABS: #Basophils 0.1 thou/uL (0.0-0.2); #Lymphocytes 0.9 thou/uL (1.20-3.40); #Monocytes 0.8 thou/uL (0.11-0.59); %Basophils 0.6 % (0.0-1.0); %Eosinophils 0.1 % (0.0-10.0); %Lymphocytes 8.5 % (21.0-51.0); %Monocytes 7.4 % (0.0-10.0); %Neutrophils 83.4 % (42.0-75.0); Hematocrit 37.8 % (42.0-52.0); Hemoglobin 11.9 g/dL (14.0-18.0); Mean Corpuscular HGB CONC 31.6 g/dL (32.0-36.0); Mean Corpuscular Hemoglobin 27.2 pg (27.0-31.0); Mean Corpuscular Volume 86.1 fl (78.0-98.0); Mean Platelet Volume 7.9 fL (7.4-10.4); Platelet Count 273 10x3/uL (130-400); RBC Distribution Width 12.8 % (11.5-14.5); Red Blood Cell (RBC) Count 4.39 mill/uL (4.70-6.10); White Blood Cell (WBC) Count 10.7 10x3/uL (4.8-10.8)
[2024-10-07 08:10] LABS: ALT (SGPT) 9 U/L (Less than 45); AST (SGOT) 14 U/L (11-34); Albumin 3.4 g/dL (3.1-4.5); Alkaline Phosphatase 104 U/L (40-110); Anion Gap 14 mmol/L (10-20); BUN (Urea Nitrogen) 18 mg/dL (8.4-25.7); Bilirubin, Total 0.4 mg/dL (0.3-1.2); Calc. Creatinine Clearance 0 mL/min (70-130); Calcium 10.1 mg/dL (7.8-10.44); Carbon Dioxide 25 mmol/L (23-31); Chloride 101 mmol/L (98-107); Estimated GFR 86; Globulin 3.3 g/dL (2.4-3.5); Glucose 233 mg/dL (83-110); Potassium 3.7 mmol/L (3.5-5.1); Protein, Total 6.7 g/dL (5.8-8.1); Sodium 136 mmol/L (136-145)
[2024-10-07 08:12] LABS: Acetaminophen Less than 10 mcg/mL (Less than 10); Alcohol Less than 10.0 mg/dL (Less than 10); Lipase 23 U/L (8-78); Salicylate Less than 8.0 mg/dL (Less than 8.0)
[2024-10-07 09:59] LABS: Bilirubin Negative (Negative); Blood, Urine Negative (Negative); Clarity Clear (Clear); Glucose, Urine (Dipstick) Negative (Negative); Ketone, Urine Negative (Negative); Leukocyte Negative (Negative); Nitrite Negative (Negative); Protein, Urine (Dipstick) Negative (Neg-Trace); Specific Gravity, Urine 1.015 (1.005-1.030); Urobilinogen 0.2 mg/dL (Less than 2)
[2024-10-07] MEDS ORDERED: Sodium Chloride 0.9% 500 ML ONE (14:17)
== END 2024-10-07 20:18 ==
LOC: NAV ERS 06:55
DX: R41.82 Altered mental status, unspecified (principal); R62.7 Adult failure to thrive; Z87.891 Personal history of nicotine dependence; E11.9 Type 2 diabetes mellitus without complications; J44.9 Chronic obstructive pulmonary disease, unspecified; E78.5 Hyperlipidemia, unspecified; Z79.84 Long term (current) use of oral hypoglycemic drugs; Z79.899 Other long term (current) drug therapy; Z79.02 Long term (current) use of antithrombotics/antiplatelets
CPT/HCPCS: 70450; 71045; 80053; 80307; 81001; 83690; 84443; 85025; 93005; 96360; 96361; J7030

== ENCOUNTER 2024-11-16 11:09 | Inpatient (IN) | payer MEDICARE, BC ==
[2024-11-16] MEDS ORDERED: Acetaminophen 325 MG TAB PO PRN (16:19)
[2024-11-16] MEDS ORDERED: Ondansetron ODT 4 MG TAB SL PRN (16:27)
[2024-11-16] MEDS ORDERED: Bisacodyl 5 MG TAB PO PRN (16:27)
[2024-11-16] MEDS ORDERED: Dextrose 50% Abboject 50 ML SYRINGE SLOW IVP PRN (17:08)
[2024-11-16] MEDS ORDERED: Glucagon 1 MG/ML KIT IM PRN (17:08)
[2024-11-16] MEDS: Metoclopramide HCl 10 MG TAB PO SCH (17:52)
[2024-11-16] MEDS: Ferrous Sulfate 325 MG TAB PO SCH (17:53)
[2024-11-16] MEDS ORDERED: cefTRIAXone (ROCEPHIN) 2 GM VIAL IVPB SCH (18:00)
[2024-11-16] MEDS: Ipratropium/Albuterol 3 ML NEB NEB SCH (18:15)
[2024-11-16] MEDS: cefTRIAXone\\ROCEPHIN 2 GM in Sodium Chloride 0.9% 100 ML IVPB SCH (18:15)
[2024-11-16] MEDS: Semaglutide [Ozempic] 0.25 MG/0.368 ML Pen.Injctr SC SCH (18:27)
[2024-11-16] MEDS: Tamsulosin HCl 0.4 MG CAP PO SCH (21:22)
[2024-11-16] MEDS: Atorvastatin Calcium 20 MG TAB PO SCH (21:22)
[2024-11-16] MEDS: Isosorbide Mononitrate 30 MG ER.TAB PO SCH (21:22)
[2024-11-16] MEDS: metFORMIN XR 500 MG ER.TAB PO SCH (21:27)
[2024-11-17] MEDS: Insulin Lispro 100 UNIT/ML 10 ML VIAL SC PRN (05:53)
[2024-11-17 06:06] LABS: #Eosinophils 0.1 thou/uL (0.0-0.7); #Lymphocytes 1.3 thou/uL (1.20-3.40); #Monocytes 0.6 thou/uL (0.11-0.59); #Neutrophils 5.2 thou/uL (1.40-6.50); %Basophils 0.6 % (0.0-1.0); %Eosinophils 0.7 % (0.0-10.0); %Lymphocytes 17.9 % (21.0-51.0); %Monocytes 8.7 % (0.0-10.0); Hematocrit 33.2 % (42.0-52.0); Hemoglobin 11.1 g/dL (14.0-18.0); Mean Corpuscular HGB CONC 33.5 g/dL (32.0-36.0); Mean Corpuscular Hemoglobin 28.2 pg (27.0-31.0); Mean Corpuscular Volume 84.2 fl (78.0-98.0); Mean Platelet Volume 7.7 fL (7.4-10.4); Platelet Count 287 10x3/uL (130-400); RBC Distribution Width 12.7 % (11.5-14.5); Red Blood Cell (RBC) Count 3.95 mill/uL (4.70-6.10); White Blood Cell (WBC) Count 7.2 10x3/uL (4.8-10.8)
[2024-11-17 06:19] LABS: ALT (SGPT) 17 U/L (Less than 45); AST (SGOT) 20 U/L (11-34); Albumin 2.7 g/dL (3.1-4.5); Alkaline Phosphatase 99 U/L (40-110); Anion Gap 13 mmol/L (10-20); BUN (Urea Nitrogen) 17 mg/dL (8.4-25.7); Bilirubin, Total 0.2 mg/dL (0.3-1.2); Calc. Creatinine Clearance 69 mL/min (70-130); Calcium 9.6 mg/dL (7.8-10.44); Carbon Dioxide 26 mmol/L (23-31); Chloride 103 mmol/L (98-107); Estimated GFR 87; Globulin 3.4 g/dL (2.4-3.5); Glucose 186 mg/dL (83-110); Potassium 3.7 mmol/L (3.5-5.1); Protein, Total 6.1 g/dL (5.8-8.1); Sodium 138 mmol/L (136-145)
[2024-11-17] MEDS: Furosemide 20 MG TAB PO SCH (08:35)
[2024-11-17] MEDS: Clopidogrel Bisulfate 75 MG TAB PO SCH (08:37)
[2024-11-17] MEDS: Cholecalciferol 1,000 UNITS (25 MCG) TAB PO SCH (08:37)
[2024-11-17] MEDS: Pantoprazole 40 MG DR.TAB PO SCH (08:38)
[2024-11-17] MEDS: Finasteride 5 MG TAB PO SCH (08:38)
[2024-11-17] MEDS: Pioglitazone HCl 15 MG TAB PO SCH (08:39)
[2024-11-18] MEDS: Saccharomyces boulardii 250 MG CAP PO SCH (09:20)
[2024-11-18] MEDS: Acetaminophen 325 MG TAB PO PRN (09:20)
[2024-11-18] MEDS ORDERED: Ipratropium/Albuterol 3 ML NEB NEB PRN (12:15)
[2024-11-18] MEDS: Insulin Lispro 100 UNIT/ML 10 ML VIAL SC PRN (20:57)
[2024-11-20] MEDS: Diclofenac 1% 100 GM Topical GEL TP PRN (08:49)
[2024-11-20] MEDS: Calcium Carbonate 500 MG ChewTAB PO PRN (08:53)
[2024-11-20] MEDS: Semaglutide [Ozempic] 0.25 MG/0.368 ML Pen.Injctr SC SCH (09:00)
[2024-11-21] MEDS ORDERED: Semaglutide [Ozempic] 0.25 MG/0.368 ML Pen.Injctr SC SCH (09:00)
[2024-11-21] MEDS: Lidocaine 4% Patch TD SCH ×2 (12:11→12:14)
[2024-11-21] MEDS: Transdermal Patch Removal TOP SCH (21:28)
[2024-11-22] MEDS: Lidocaine 4% Patch TD SCH (08:58)
[2024-11-22] MEDS: Loratadine 10 MG TAB PO SCH (16:23)
[2024-11-23 05:50] LABS: #Basophils 0.1 thou/uL (0.0-0.2); #Eosinophils 0.1 thou/uL (0.0-0.7); #Lymphocytes 1.5 thou/uL (1.20-3.40); #Monocytes 0.4 thou/uL (0.11-0.59); #Neutrophils 4.9 thou/uL (1.40-6.50); %Basophils 1.2 % (0.0-1.0); %Eosinophils 1.2 % (0.0-10.0); %Lymphocytes 22.1 % (21.0-51.0); %Monocytes 5.6 % (0.0-10.0); Hematocrit 34.5 % (42.0-52.0); Hemoglobin 10.7 g/dL (14.0-18.0); Mean Corpuscular HGB CONC 31.1 g/dL (32.0-36.0); Mean Corpuscular Hemoglobin 27.6 pg (27.0-31.0); Mean Corpuscular Volume 88.7 fl (78.0-98.0); Mean Platelet Volume 7.2 fL (7.4-10.4); Platelet Count 351 10x3/uL (130-400); RBC Distribution Width 14.3 % (11.5-14.5); Red Blood Cell (RBC) Count 3.89 mill/uL (4.70-6.10)
[2024-11-23 05:52] LABS: Anion Gap 13 mmol/L (10-20); BUN (Urea Nitrogen) 18 mg/dL (8.4-25.7); Calc. Creatinine Clearance 75 mL/min (70-130); Calcium 9.9 mg/dL (7.8-10.44); Carbon Dioxide 25 mmol/L (23-31); Chloride 104 mmol/L (98-107); Estimated GFR 90; Glucose 156 mg/dL (83-110); Potassium 3.5 mmol/L (3.5-5.1); Sodium 138 mmol/L (136-145)
[2024-11-23] MEDS: Loratadine 10 MG TAB PO SCH (08:33)
[2024-11-25] MEDS: Ascorbic Acid 500 mg Chewable Tablet PO SCH (10:00)
[2024-11-26] MEDS: Isosorbide Mononitrate 60 MG ER.TAB PO SCH (21:01)
[2024-11-27] MEDS: Senokot S 8.6-50 MG TAB PO PRN (16:50)
[2024-11-28] MEDS: Triamcinolone 0.1% Cream 15 GM TUBE TOP SCH (09:59)
[2024-11-29] MEDS: [UNRECOGNIZED DRUG - OTHER] PO SCH (08:08)
[2024-12-01 14:34] VITALS: BMI 24.5
[2024-12-03 05:51] LABS: #Eosinophils 0.1 thou/uL (0.0-0.7); #Lymphocytes 1.6 thou/uL (1.20-3.40); #Monocytes 0.7 thou/uL (0.11-0.59); #Neutrophils 4.5 thou/uL (1.40-6.50); %Basophils 0.5 % (0.0-1.0); %Eosinophils 0.9 % (0.0-10.0); %Lymphocytes 22.8 % (21.0-51.0); %Monocytes 10.6 % (0.0-10.0); %Neutrophils 65.1 % (42.0-75.0); Hematocrit 37.1 % (42.0-52.0); Hemoglobin 11.4 g/dL (14.0-18.0); Mean Corpuscular HGB CONC 30.9 g/dL (32.0-36.0); Mean Corpuscular Hemoglobin 27.3 pg (27.0-31.0); Mean Corpuscular Volume 88.4 fl (78.0-98.0); Platelet Count 239 10x3/uL (130-400); RBC Distribution Width 14.6 % (11.5-14.5); White Blood Cell (WBC) Count 6.9 10x3/uL (4.8-10.8)
[2024-12-03 06:05] LABS: Anion Gap 15 mmol/L (10-20); BUN (Urea Nitrogen) 23 mg/dL (8.4-25.7); Calc. Creatinine Clearance 49 mL/min (70-130); Calcium 9.7 mg/dL (7.8-10.44); Carbon Dioxide 24 mmol/L (23-31); Chloride 104 mmol/L (98-107); Estimated GFR 64; Glucose 132 mg/dL (83-110); Potassium 3.8 mmol/L (3.5-5.1); Sodium 139 mmol/L (136-145)
[2024-12-05] MEDS: Triamcinolone 0.1% Cream 15 GM TUBE TOP SCH (20:19)
[2024-12-09 13:38] VITALS: BP 134/75; TEMP 98.2
== END 2024-12-09 15:55 | disposition home health service (06) | DRG 945 ==
LOC: NAV ACUTE 15:00
PROVIDERS: ADMIT Family Medicine; ATTEND Family Medicine
PROC: F07Z9ZZ Gait Training/Functional Ambulation Treatment (ICD-10-PCS; principal; 2024-12-07)
PROC: F08Z0ZZ Bathing/Showering Techniques Treatment (ICD-10-PCS; 2024-12-07)
DX: R53.1 Weakness (principal); I50.32 Chronic diastolic (congestive) heart failure; N39.0 Urinary tract infection, site not specified; R78.81 Bacteremia; Z66 Do not resuscitate; I11.0 Hypertensive heart disease with heart failure; E78.5 Hyperlipidemia, unspecified; M81.0 Age-related osteoporosis without current pathological fracture; J44.9 Chronic obstructive pulmonary disease, unspecified; D50.9 Iron deficiency anemia, unspecified; I73.9 Peripheral vascular disease, unspecified; I25.10 Atherosclerotic heart disease of native coronary artery without angina pectoris; Z96.652 Presence of left artificial knee joint; B96.20 Unspecified Escherichia coli [E. coli] as the cause of diseases classified elsewhere; R13.10 Dysphagia, unspecified; N40.0 Benign prostatic hyperplasia without lower urinary tract symptoms; E11.43 Type 2 diabetes mellitus with diabetic autonomic (poly)neuropathy; K31.84 Gastroparesis; M19.90 Unspecified osteoarthritis, unspecified site; R07.89 Other chest pain; J30.9 Allergic rhinitis, unspecified; L20.9 Atopic dermatitis, unspecified; G31.84 Mild cognitive impairment of uncertain or unknown etiology; Z88.8 Allergy status to other drugs, medicaments and biological substances; Z79.899 Other long term (current) drug therapy; Z79.84 Long term (current) use of oral hypoglycemic drugs; Z87.891 Personal history of nicotine dependence; Z98.890 Other specified postprocedural states; Z90.49 Acquired absence of other specified parts of digestive tract
CPT/HCPCS: 36415; 36416; 80048; 80053; 85025; J0696; J1815; J7620